=== PATIENT | female | born 1935 | race Hispanic/Latino ===

== ENCOUNTER 2018-11-29 02:02 | Inpatient (IN) | payer MEDICARE ==
--- NOTE | 2018-11-29 03:00 | Emergency Department Report ---
ED General Adult HPI - General Chief complaint: Dyspnea/Respdistress Stated complaint: SEPSIS Time Seen by Provider: 11/29/18 02:55 Source: patient, EMS Mode of arrival: Stretcher Limitations: Physical Limitation - History of Present Illness Initial comments: 83-year-old female with a history of hypertension, gout, CVA, and hypercholesterolemia presents with the complaint of shortness of breath. Family also states that patient was talking off of the wall. Family states the patient was taking all of her oxygen off and put in by was outside the home. And states the patient had felt clammy. Family states the patient does have a history of dementia as well. Patient was recently discharged from outside hospital. The family. Patient also related to the fentanyl she had a complaint of chest pain. Patient currently has been compliant with her L Oquist therapy. Upon EMS arrival patient had a oxygen saturation 85% on room air. Family states the patient on her 3 L oxygen was 81% at home. Patient has had no fever at home. - Related Data Home Medications Medication Instructions Recorded Confirmed Last Taken Allopurinol 300 mg PO QAM 04/03/18 04/05/18 04/03/18 08:00 Aspirin 81 mg PO QAM 04/03/18 04/05/18 Unknown Clopidogrel 75 mg PO QPM 04/03/18 04/05/18 04/03/18 08:00 Metoprolol Tartrate 25 mg PO BID 04/03/18 04/05/18 Unknown Multivitamin 1 tab PO QDAY 04/03/18 04/05/18 04/03/18 08:00 Lantus 38 units SUB-Q BID 04/05/18 04/05/18 Unknown Levothyroxine [Synthroid] 75 mg PO QAM 04/05/18 04/05/18 Unknown Polyethylene Glycol 3350 [Clearlax] 17 gm PO PRN 04/05/18 04/05/18 Unknown Previous Rx's Medication Instructions Recorded Last Taken Type Aspirin EC 81 mg PO QDAY #30 tablet. 04/09/18 Unknown Rx AtorvaSTATin [Lipitor] 40 mg PO QHS #30 tablet 04/09/18 Unknown Rx Losartan Potassium 100 mg PO QPM #30 04/09/18 Unknown Rx amLODIPine [Norvasc] 10 mg PO QDAY #30 tablet 04/09/18 Unknown Rx Allergies Allergy/AdvReac Type Severity Reaction Status Date / Time latex Allergy Unknown Verified 03/06/16 08:01 chlorine Allergy Unknown Uncoded 03/06/16 08:01 ED Review of Systems ROS: Stated complaint: SEPSIS Other details as noted in HPI Constitutional: denies: chills, fever Eyes: denies: eye pain, eye discharge, vision change ENT: denies: ear pain, throat pain Respiratory: shortness of breath Cardiovascular: denies: chest pain, palpitations Endocrine: no symptoms reported Gastrointestinal: denies: abdominal pain, nausea, diarrhea Genitourinary: denies: urgency, dysuria, discharge Musculoskeletal: denies: back pain, joint swelling, arthralgia Skin: denies: rash, lesions Neurological: denies: headache, weakness, paresthesias Psychiatric: denies: anxiety, depression Hematological/Lymphatic: denies: easy bleeding, easy bruising ED Past Medical Hx - Past Medical History Hx Hypertension: Yes Hx Heart Attack/AMI: Yes (2001) Hx Congestive Heart Failure: Yes Hx Diabetes: Yes Hx COPD: Yes Additional medical history: Bladder prolapse/uterine prolapse - Surgical History Past Surgical History?: Yes Hx Pacemaker: Yes (Dr. Calero) Additional Surgical History: bladder/uterine mesh - Social History Smoking Status: Unknown if ever smoked - Medications Home Medications: Home Medications Medication Instructions Recorded Confirmed Last Taken Type Allopurinol 300 mg PO QAM 04/03/18 04/05/18 04/03/18 08:00 History Aspirin 81 mg PO QAM 04/03/18 04/05/18 Unknown History Clopidogrel 75 mg PO QPM 04/03/18 04/05/18 04/03/18 08:00 History Metoprolol Tartrate 25 mg PO BID 04/03/18 04/05/18 Unknown History Multivitamin 1 tab PO QDAY 04/03/18 04/05/18 04/03/18 08:00 History Lantus 38 units SUB-Q BID 04/05/18 04/05/18 Unknown History Levothyroxine [Synthroid] 75 mg PO QAM 04/05/18 04/05/18 Unknown History Polyethylene Glycol 3350 [Clearlax] 17 gm PO PRN 04/05/18 04/05/18 Unknown History Aspirin EC 81 mg PO QDAY #30 tablet. 04/09/18 Unknown Rx AtorvaSTATin [Lipitor] 40 mg PO QHS #30 tablet 04/09/18 Unknown Rx Losartan Potassium 100 mg PO QPM #30 04/09/18 Unknown Rx amLODIPine [Norvasc] 10 mg PO QDAY #30 tablet 04/09/18 Unknown Rx ED Physical Exam - General Limitations: Physical Limitation General appearance: alert, other (comfortable;) - Head Head exam: Present: atraumatic, normocephalic - Eye Eye exam: Present: normal appearance - ENT ENT exam: Present: mucous membranes dry - Neck Neck exam: Present: normal inspection - Respiratory Respiratory exam: Present: other (coarse breath sounds bilaterally). Absent: respiratory distress - Cardiovascular Cardiovascular Exam: Present: regular rate, normal rhythm. Absent: systolic murmur, diastolic murmur, rubs, gallop - GI/Abdominal GI/Abdominal exam: Present: soft, normal bowel sounds - Extremities Exam Extremities exam: Present: normal inspection - Back Exam Back exam: Present: normal inspection - Neurological Exam Neurological exam: Present: alert, CN II-XII intact, other (oriented to person and place only). Absent: motor sensory deficit - Psychiatric Psychiatric exam: Present: normal affect, normal mood - Skin Skin exam: Present: warm, dry, intact, normal color. Absent: rash ED Course Vital Signs 11/29/18 11/29/18 11/29/18 02:12 02:26 02:30 Temperature 98.6 F Pulse Rate 90 88 85 Respiratory 29 H 39 H 29 H Rate Blood Pressure 161/77 O2 Sat by Pulse 89 94 93 Oximetry 11/29/18 11/29/18 11/29/18 02:45 03:00 03:15 Temperature Pulse Rate 84 82 82 Respiratory 41 H 27 H 37 H Rate Blood Pressure 151/82 154/75 149/78 O2 Sat by Pulse 91 92 93 Oximetry 11/29/18 11/29/18 11/29/18 03:31 03:45 04:01 Temperature Pulse Rate 81 82 Respiratory 33 H 35 H Rate Blood Pressure 149/78 150/70 150/70 O2 Sat by Pulse 93 93 95 Oximetry 11/29/18 11/29/18 11/29/18 04:29 04:31 04:45 Temperature Pulse Rate 86 86 80 Respiratory 27 H 27 H 32 H Rate Blood Pressure 150/70 147/72 151/73 O2 Sat by Pulse 90 91 92 Oximetry 11/29/18 11/29/18 05:01 05:15 Temperature Pulse Rate 72 72 Respiratory 22 25 H Rate Blood Pressure 124/54 129/64 O2 Sat by Pulse 94 91 Oximetry ED Medical Decision Making - Lab Data Result diagrams: 11/29/18 03:31 11/29/18 03:31 - EKG Data -: EKG Interpreted by Me Rate: normal - EKG Data Interpretation: other (paced rhythm) - Medical Decision Making Patient received additional oxygen via nasal cannula as patient was noted to be hypoxic on her oxygen requirement of 3 L. Patient was also noted to have a urinary tract infection which may have lead to her altered mental status and thus patient was given ceftriaxone therapy while in the emergency department. Patient noted to have bilateral pleural effusion and chest x-ray and with elevated BNP as well patient was given Lasix therapy while in emergency departm ent. Patient to be admitted to the hospitalist service for continued management and treatment. - Differential Diagnosis arrhythmia; STEMI; UTI; electrolyte; anemia; Critical care attestation.: If time is entered above; I have spent that time in minutes in the direct care of this critically ill patient, excluding procedure time. ED Disposition Clinical Impression: Urinary tract infection, NSTEMI (non-ST elevated myocardial infarction), Pleural effusion, Hypoalbuminemia, COPD (chronic obstructive pulmonary disease) Disposition: 09 OP ADMIT IP TO THIS HOSP Is pt being admited?: Yes Condition: Stable Instructions: Chronic Obstructive Pulmonary Disease (ED) Referrals: SHELLIE ZAYAS MD [Referring] - 3-5 Days Time of Disposition: 06:01
[2018-11-29 03:49] LABS: Basophils # (Auto) 0.1 K/mm3 (0.0-0.1); Basophils % (Auto) 0.4 % (0.0-1.8); Eosinophils % (Auto) 0.3 % (0.0-4.3); Hematocrit 44.2 % (30.3-42.9); Hemoglobin 14.6 gm/dl (10.1-14.3); Lymphocytes # (Auto) 1.5 K/mm3 (1.2-5.4); Lymphocytes % (Auto) 9.4 % (13.4-35.0); Mean Corpuscular HGB Conc 33 % (30-34); Mean Corpuscular Volume 97 fl (79-97); Monocytes # (Auto) 0.9 K/mm3 (0.0-0.8); Monocytes % (Auto) 5.7 % (0.0-7.3); Platelet Count 317 K/mm3 (140-440); Red Blood Count 4.58 M/mm3 (3.65-5.03); Red Cell Distribution Width 15.1 % (13.2-15.2)
[2018-11-29 03:58] LABS: Bacteria,Urine 1+ /HPF (Negative); Bilirubin,Urine NEG (Negative); Blood,Urine NEG (Negative); Color,Urine Yellow (Yellow); Mucus,Urine FEW /HPF; Urobilinogen,Urine < 2.0 mg/dL (<2.0)
[2018-11-29 04:03] LABS: WBC,Urine > 182.0 /HPF (0.0-6.0)
[2018-11-29 04:14] LABS: Albumin 3.5 g/dL (3.9-5); Calcium 9.5 mg/dL (8.4-10.2)
--- NOTE | 2018-11-29 04:48 | Cat Scan Report ---
CT HEAD WITHOUT CONTRAST INDICATION : Altered mental status. Headache. History of diabetes. TECHNIQUE: Axial, coronal and sagittal CT imaging was performed from the skull apex through the skul l base without contrast. All CT scans at this location are performed using CT dose reduction for ALA RA by means of automated exposure control. COMPARISON: CT of the head without contrast from 04/04/2018. FINDINGS: PARENCHYMA: No mass, midline shift, hemorrhage, extraaxial collection or acute territorial infarctio n. There is similar generalized atrophy. Multifocal areas of low-attenuation are seen along the periv entricular and deep white matter and likely represent chronic microvascular ischemic changes. VENTRICLES: Prominent secondary to atrophy. No acute abnormality. SOFT TISSUES: Soft tissues including the orbits appear normal. BONES: No acute osseous abnormality. SINUSES: No significant abnormality. ADDITIONAL FINDINGS: None. IMPRESSION: 1. No acute abnormality. 2. Additional stable chronic changes as above. Signer Name: Tawanda López MD Signed: 11/29/2018 4:44 AM Workstation Name: [id number]
[2018-11-29] MEDS ORDERED: ROCEPHIN/NS 1 GM/50 ML 1 GM/50 ML BAG IV ONE (04:59)
[2018-11-29] MEDS ORDERED: LASIX IV ONE (05:29)
--- NOTE | 2018-11-29 05:46 | XRay Report ---
CHEST 1 VIEW 11/29/2018 5:24 AM INDICATION / CLINICAL INFORMATION: shortness of breath. COMPARISON: None available. FINDINGS: SUPPORT DEVICES: Satisfactory positioning of a left pacemaker. HEART / MEDIASTINUM: Normal size with moderate aortic atherosclerosis. LUNGS / PLEURA: There are moderate bilateral pleural effusions with associated atelectasis. No pneumo thorax. ADDITIONAL FINDINGS: No significant additional findings. IMPRESSION: Moderate bilateral pleural effusions. Signer Name: Tawanda López MD Signed: 11/29/2018 5:41 AM Workstation Name: [id number]
[2018-11-29] MEDS ORDERED: D50W (25GM) Syringe IV PRN (06:15)
[2018-11-29] MEDS: TYLENOL PO PRN ×2 (06:25→14:57)
[2018-11-29] MEDS ORDERED: TYLENOL ONE (06:32)
[2018-11-29] MEDS: HumuLIN R SUB-Q SCH ×4 (09:55→21:13)
[2018-11-29] MEDS ORDERED: MULTIVITAMIN PO SCH (10:00)
[2018-11-29] MEDS ORDERED: NON-FORMULARY (Metoprolol Tartrate 25 MG) PO SCH (10:00)
[2018-11-29] MEDS ORDERED: NON-FORMULARY (Aspirin 81 MG) PO SCH (10:00)
[2018-11-29] MEDS ORDERED: NON-FORMULARY (Allopurinol 300 MG) PO SCH (10:00)
[2018-11-29] MEDS: ZYLOPRIM PO SCH (10:04)
[2018-11-29] MEDS: THERAGRAN Tab PO SCH (10:04)
[2018-11-29] MEDS: NITRO-BID 2% TP SCH ×3 (10:04→17:53)
[2018-11-29] MEDS: LOPRESSOR PO SCH ×2 (10:04→21:14)
[2018-11-29] MEDS: HEPARIN SUB-Q SCH ×2 (10:05→21:13)
[2018-11-29] MEDS: NORVASC PO SCH (10:05)
[2018-11-29] MEDS: LASIX IV SCH (10:05)
[2018-11-29] MEDS: HALFPRIN EC PO SCH (10:06)
--- NOTE | 2018-11-29 10:59 | History and Physical Report ---
CHIEF COMPLAINT: Shortness of breath. HISTORY OF PRESENT ILLNESS: The patient is an 83-year-old female who was noted to be having shortness of breath and also the patient was noted to be confused and was noted by family to be taken her oxygen off at home. The patient was also noted to be clammy and denies history of chest pain, denies history of fever or chills. There was no history of nausea and vomiting and the patient was brought to the Emergency Room. PAST MEDICAL HISTORY: Pertinent for hypertension, coronary artery disease status post myocardial infarction, congestive heart failure, diabetes mellitus, COPD, bladder prolapse, uterine prolapse. Also, the patient has past medical history of bladder/uterine mesh surgery. PAST SURGICAL HISTORY: Pertinent for pacemaker placement. FAMILY HISTORY: Noncontributory. SOCIAL HISTORY: The patient does not smoke, does not drink alcohol and does not use illicit drugs. MEDICATIONS: The patient is on allopurinol 300 mg by mouth every morning, aspirin 81 mg by mouth every morning, clopidogrel 75 mg by mouth in the evening, metoprolol tartrate 25 mg by mouth twice daily, multivitamin 1 tablet by mouth daily, Lantus insulin 38 units subcu b.i.d., levothyroxine or Synthroid 75 mg by mouth every morning, ClearLax 17 g p.o. p.r.n., aspirin enteric coated 81 mg by mouth daily, Lipitor 40 mg by mouth at bedtime, losartan potassium 100 mg by mouth in the evening and amlodipine 10 mg by mouth daily. ALLERGIES: The patient is ALLERGIC TO LATEX AND CHLORINE. REVIEW OF SYSTEMS: CONSTITUTIONAL: There is no fever, no chills, no diaphoresis. HEENT: There is no headache or sore throat. CARDIOVASCULAR SYSTEM: There is no chest pain or orthopnea. RESPIRATORY SYSTEM: Shortness of breath is present and there is no history of cough. GASTROINTESTINAL SYSTEM: There is no nausea, no vomiting. No abdominal pain, diarrhea or constipation. NEUROLOGICAL SYSTEM: Altered mental status present. No dizziness, no numbness. MUSCULOSKELETAL SYSTEM: There is no joint pain. There is swelling in the legs. DERMATOLOGIC SYSTEM: There is no skin rash or itching. GENITOURINARY SYSTEM: There is no dysuria or hematuria or flank pain. Rest of system review is normal. PHYSICAL EXAMINATION: GENERAL: At the time of exam, the patient was found to be alert, oriented x 3, and not in acute distress. VITAL SIGNS: Showed temperature of 98.6 degrees Fahrenheit, pulse of 90, respiration 29, blood pressure 161/77, O2 sat initially of 89% on room air that went up to 93%-95% on oxygen. HEENT: Showed pupils be equal, round, reactive to light and accommodation. Extraocular muscles are intact. NECK: Supple with no JVD or carotid bruit. CARDIOVASCULAR SYSTEM: Showed normal first and second heart sounds with no gallops or murmurs. RESPIRATORY SYSTEM: Showed reduced air entry on both sides of the lungs with no abnormal breath sounds. GASTROINTESTINAL SYSTEM: Showed abdomen to be full, soft, nontender with no organomegaly or rigidity. NEUROLOGICAL: Showed no focal deficit. MUSCULOSKELETAL SYSTEM: Showed swelling in the left leg. DERMATOLOGICAL SYSTEM: Showed no skin rash. GENITOURINARY SYSTEM: Showing no costovertebral angle tenderness. PERTINENT LABORATORY AND IMAGING STUDIES: The patient had chest x-ray done that shows moderate bilateral pleural effusion. The patient also has CT of the head done without contrast that shows no acute abnormality. The patient's CBC shows elevated white count of 16,100 with elevated hemoglobin of 14.6 and elevated hematocrit level of 44.7 with CBC differential showing elevated segmented neutrophil count of 84.2%. The patient's chemistry showed elevated BUN of 30 with normal creatinine and normal estimated GFR. The patient's lactic acid level was normal. Rest of chemistry showed elevated AST of 51 with normal ALT. The patient's troponin level was high with a value of 0.099. The patient's brain natriuretic peptide level is high with a value of 11,678 and albumin level was low with a value of 3.5. The patient's urinalysis show moderate increase in urine leukocyte esterase with high urine wbc's of greater than 182 and high urine rbc's of 33 with 1+ bacteria. DIAGNOSES: 1. Congestive heart failure. 2. Urinary tract infection. 3. Elevated troponin level. 4. Dyspnea. PLAN OF CARE: 1. The patient will be admitted to telemetry. 2. The patient will have serial cardiac enzymes involving troponin, total CK and CK-MB check q. 6 hours x 2 more levels. 3. The patient will have Cardiology consult with Dr. Que Cervantes for management of CHF with elevated troponin level. 4. The patient will have 2D echo done this morning. 5. The patient will be on nitro paste half inch to anterior chest wall q.i.d. and Nitrostat 0.4 mg every 5 minutes as needed for breakthrough chest pain. 6. The patient will be on heparin 5000 units subcutaneous q. 12 hours for DVT prophylaxis. 7. The patient will be on IV ceftriaxone 1 gram daily for treatment of UTI. 8. The patient will be on p.r.n. medications like Tylenol 650 mg by mouth every 4 hours for fever and headache and IV Zofran 4 mg every 8 hours as needed for nausea and vomiting. 9. The patient will be on home medication as shown in the medication reconciliation section. 10. The patient will be on Accu-Chek a.c. and at bedtime followed by low-dose sliding scale using regular insulin. 11. The patient's diet will be consistent with carbohydrate 2 g sodium diet. [facility]# [id number] OCN/NTS
--- NOTE | 2018-11-29 11:23 | Consultation ---
History of Present Illness Consult date: 11/29/18 Consult reason: congestive heart failure, elevated troponin History of present illness: The patient is an 83-year-old woman with multiple medical problems. She has coronary artery disease, with remote coronary stents, determined patent R neck cardiac catheterization in 2009. She has a dual chamber pacemaker in situ. She appears to have significant dementia. 8 months ago, she was hospitalized here with a suspected stroke, that time an echocardiogram demonstrated well-preserved left ventricular systolic function, ejection fraction 50-55%. There was moderate mitral stenosis and moderate mitral regurgitation. She was presumably recommended for conservative cardiac management. She presents to the hospital at this time with complaints of shortness of breath. EKG is ventricular paced rhythm. Chest x-ray shows bilateral pleural effusions, right greater than left. The right effusion comprises almost half of the right lung field. Otherwise, there is mild increase in the size of the cardiac silhouette, and minimal interstitial edema. Past History Past Medical History: CAD, other (mitral valvular heart disease) Past Surgical History: Other (pacemaker) Medications and Allergies Allergies Allergy/AdvReac Type Severity Reaction Status Date / Time latex Allergy Unknown Verified 03/06/16 08:01 chlorine Allergy Unknown Uncoded 03/06/16 08:01 Home Medications Medication Instructions Recorded Confirmed Last Taken Type Allopurinol 300 mg PO QAM 04/03/18 04/05/18 04/03/18 08:00 History Aspirin 81 mg PO QAM 04/03/18 04/05/18 Unknown History Clopidogrel 75 mg PO QPM 04/03/18 04/05/18 04/03/18 08:00 History Metoprolol Tartrate 25 mg PO BID 04/03/18 04/05/18 Unknown History Multivitamin 1 tab PO QDAY 04/03/18 04/05/18 04/03/18 08:00 History Lantus 38 units SUB-Q BID 04/05/18 04/05/18 Unknown History Levothyroxine [Synthroid] 75 mg PO QAM 04/05/18 04/05/18 Unknown History Polyethylene Glycol 3350 [Clearlax] 17 gm PO PRN 04/05/18 04/05/18 Unknown History Aspirin EC 81 mg PO QDAY #30 tablet. 04/09/18 Unknown Rx AtorvaSTATin [Lipitor] 40 mg PO QHS #30 tablet 04/09/18 Unknown Rx Losartan Potassium 100 mg PO QPM #30 04/09/18 Unknown Rx amLODIPine [Norvasc] 10 mg PO QDAY #30 tablet 04/09/18 Unknown Rx Active Meds: Active Medications Acetaminophen (Tylenol) 650 mg PO Q4H PRN PRN Reason: Fever >101 Last Admin: 11/29/18 06:25 Dose: 650 mg Documented by: Allopurinol (Zyloprim) 300 mg PO QDAY [facility] Last Admin: 11/29/18 10:04 Dose: 300 mg Documented by: Amlodipine Besylate (Norvasc) 10 mg PO QDAY [facility] Last Admin: 11/29/18 10:05 Dose: 10 mg Documented by: Aspirin (Halfprin Ec) 81 mg PO QDAY [facility] Last Admin: 11/29/18 10:06 Dose: 81 mg Documented by: Atorvastatin Calcium (Lipitor) 40 mg PO QHS DEEPTI Clopidogrel Bisulfate (Plavix) 75 mg PO QPM [facility] Dextrose (D50w (25gm) Syringe) 50 ml IV PRN PRN PRN Reason: Hypoglycemia Furosemide (Lasix) 40 mg IV QDAY [facility] Last Admin: 11/29/18 10:05 Dose: 40 mg Documented by: Heparin Sodium (Porcine) (Heparin) 5,000 unit SUB-Q Q12HR [facility] Last Admin: 11/29/18 10:05 Dose: 5,000 unit Documented by: Ceftriaxone Sodium (Rocephin/Ns 1 Gm/50 Ml) 1 gm in 50 mls @ 100 mls/hr IV Q24H [facility]; Protocol Insulin Human Regular (Humulin R) 0 units SUB-Q QHS [facility]; Protocol Insulin Human Regular (Humulin R) 0 units SUB-Q AC [facility]; Protocol Last Admin: 11/29/18 09:55 Dose: Not Given Documented by: Levothyroxine Sodium (Synthroid) 75 mcg PO QAM@0600 [facility] Losartan Potassium (Cozaar) 100 mg PO QPM [facility] Metoprolol Tartrate (Lopressor) 25 mg PO BID [facility] Last Admin: 11/29/18 10:04 Dose: 25 mg Documented by: Multivitamins (Theragran Tab) 1 each PO DAILY [facility] Last Admin: 11/29/18 10:04 Dose: 1 each Documented by: Nitroglycerin (Nitro-Bid 2%) 0.5 inch TP QIDNTG [facility]; Protocol Last Admin: 11/29/18 10:04 Dose: 0.5 inch Documented by: Ondansetron HCl (Zofran) 4 mg IV Q8H PRN PRN Reason: Nausea And Vomiting Polyethylene Glycol (Miralax 3350) 17 gm PO DAILY PRN PRN Reason: Constipation Review of Systems Cardiovascular: shortness of breath, no chest pain, no orthopnea, no palpit ations, no rapid/irregular heart beat, no edema, no syncope, no lightheadedness Physical Examination Vital Signs Temp Pulse Resp Pulse Ox 98.6 F 90 29 H 89 11/29/18 02:12 11/29/18 02:12 11/29/18 02:12 11/29/18 02:12 General appearance: no acute distress HEENT: Positive: PERRL Neck: Positive: neck supple Cardiac: Positive: Reg Rate and Rhythm Lungs: Positive: Decreased Breath Sounds Neuro: Positive: Grossly Intact Abdomen: Positive: Soft Female genitourinary: deferred Skin: Positive: Clear Extremities: Absent: edema Results 11/29/18 03:31 11/29/18 03:31 Cardiac Enzymes 11/29/18 Range/Units 03:31 AST 51 H (5-40) units/L CBC 11/29/18 Range/Units 03:31 WBC 16.1 H (4.5-11.0) K/mm3 RBC 4.58 (3.65-5.03) M/mm3 Hgb 14.6 H (10.1-14.3) gm/dl Hct 44.2 H (30.3-42.9) % Plt Count 317 (140-440) K/mm3 Lymph # 1.5 (1.2-5.4) K/mm3 [place] # 0.9 H (0.0-0.8) K/mm3 Eos # 0.0 (0.0-0.4) K/mm3 Baso # 0.1 (0.0-0.1) K/mm3 Comprehensive Metabolic Panel 11/29/18 Range/Units 03:31 Sodium 142 (137-145) mmol/L Potassium 4.8 (3.6-5.0) mmol/L Chloride 100.7 (98-107) mmol/L Carbon Dioxide 28 (22-30) mmol/L BUN 30 H (7-17) mg/dL Creatinine 0.9 (0.7-1.2) mg/dL Glucose 147 H (65-100) mg/dL Calcium 9.5 (8.4-10.2) mg/dL AST 51 H (5-40) units/L ALT 42 (7-56) units/L Alkaline Phosphatase 89 (35-129) units/L Total Protein 6.9 (6.3-8.2) g/dL Albumin 3.5 L (3.9-5) g/dL EKG interpretations - Telemetry EKG Rhythm: Paced Assessment and Plan - Patient Problems (1) Pleural effusion Current Visit: Yes Status: Acute Plan to address problem: Patient presents with shortness of breath, evidence of mild fluid overload, but more significant bilateral pleural effusion with a moderate to large effusion on the right. In addition to diuretic therapy, recommend pulmonary consultation and evaluation of pulmonary effusion.
[2018-11-29 13:06] LABS: Creatine Kinase MB 3.6 ng/mL (0.0-4.0)
--- NOTE | 2018-11-29 13:32 | Event Note ---
Date: 11/29/18 patient admitted earlier this morning continue management as outlined in H/P.
[2018-11-29] MEDS: HALDOL IM PRN (15:56)
[2018-11-29] MEDS ORDERED: NON-FORMULARY (Clopidogrel 75 MG) PO SCH (18:00)
[2018-11-29] MEDS ORDERED: COZAAR PO SCH (18:00)
[2018-11-29] MEDS ORDERED: PLAVIX PO SCH (18:00)
[2018-11-29] MEDS ORDERED: NON-FORMULARY (Losartan Potassium 100 MG) PO SCH (18:00)
[2018-11-29] MEDS: SYNTHROID PO SCH (18:17)
[2018-11-29 19:22] LABS: Creatine Kinase MB 3.6 ng/mL (0.0-4.0)
[2018-11-29 19:42] LABS: Chol/HDL Ratio 2.35 %
[2018-11-29] MEDS: PLAVIX PO SCH (21:12)
[2018-11-29] MEDS: COZAAR PO SCH (21:13)
[2018-11-30] MEDS: HALDOL IM PRN ×2 (03:12→18:16)
[2018-11-30] MEDS: ROCEPHIN/NS 1 GM/50 ML 1 GM/50 ML BAG IV SCH (05:15)
[2018-11-30] MEDS: SYNTHROID PO SCH (05:15)
[2018-11-30] MEDS: NITRO-BID 2% TP SCH ×4 (05:16→17:15)
[2018-11-30] MEDS: THERAGRAN Tab PO SCH (09:02)
[2018-11-30] MEDS: HALFPRIN EC PO SCH (09:02)
[2018-11-30] MEDS: ZYLOPRIM PO SCH (09:02)
[2018-11-30] MEDS: NORVASC PO SCH (09:03)
[2018-11-30] MEDS: LOPRESSOR PO SCH ×2 (09:04→21:04)
[2018-11-30] MEDS: HumuLIN R SUB-Q SCH ×4 (09:04→21:04)
[2018-11-30] MEDS: HEPARIN SUB-Q SCH ×2 (09:04→21:04)
[2018-11-30] MEDS: LASIX IV SCH ×2 (09:05→17:15)
--- NOTE | 2018-11-30 15:06 | Progress Note ---
Assessment and Plan - Patient Problems (1) Pleural effusion Current Visit: Yes Status: Acute Plan to address problem: Bilateral pleural effusion may be likely due to heart failure, but I have recommended pulmonary consultation and follow-up for a possible localized pulmonary etiology. (2) Congestive heart failure Current Visit: Yes Status: Acute Plan to address problem: An echocardiogram done during this admission shows a calcified mitral valve with at least moderate mitral stenosis, mean transmitral gradient of 10. In addition, there was severe mitral regurgitation. Left ventricle systolic function well-preserved, ejection fraction 50-55%. There was moderate pulmonary hypertension with a pulmonary artery systolic pressure of 44. It is likely that the patient's recurrent congestive heart failure is secondary to her mixed mitral valve disease, combination mitral stenosis and regurgitation. Recommendation: 1. Aggressive medical therapy with diuretics, afterload agents, spironolactone and blood pressure management as indicated. 2. Pulmonary consultation for evaluation and management of bilateral pleural effusion which is worse on the right. 3. When heart failure is optimally resolved, and pleural effusion is resolved, a right and left heart catheterization for further evaluation of valvular disease and any concomitant coronary disease. 4. Ultimately, the patient will benefit from mitral valve replacement, but surgical management may be contraindicated by the patient's advanced age, overall poor clinical status and dementia. (3) Mitral valve disease, rheumatic Current Visit: Yes Status: Acute Plan to address problem: An echocardiogram done during this admission shows a heavily calcified mitral valve with at least moderate mitral stenosis, mean transmitral gradient of 10. In addition, there was severe mitral regurgitation. Left ventricle systolic function well-preserved, ejection fraction 50-55%. There was moderate pulmonary hypertension with a pulmonary artery systolic pressure of 44. It is likely that the patient's recurrent congestive heart failure is secondary to her mixed mitral valve disease, combination mitral stenosis and regurgitation. Recommendation: 1. Aggressive medical therapy with diuretics, afterload agents, spironolactone and blood pressure management as indicated. 2. Pulmonary consultation for evaluation and management of bilateral pleural effusion which is worse on the right. 3. When heart failure is optimally resolved, and pleural effusion is resolved, a right and left heart catheterization for further evaluation of valvular disease and any concomitant coronary disease. 4. Ultimately, the patient will benefit from mitral valve replacement, but surgical management may be contraindicated by the patient's advanced age, overall poor clinical status and dementia. Subjective Date of service: 11/30/18 Interval history: The patient appears intermittently confused, and a family member mentions that she may have a diagnosis of dementia. An echocardiogram done during this admission shows a calcified mitral valve with at least moderate mitral stenosis, mean transmitral gradient of 10. In addition, there was severe mitral regurgitation. Left ventricle systolic function well-preserved, ejection fraction 50-55%. There was moderate pulmonary hypertension with a pulmonary artery systolic pressure of 44. Objective Vital Signs Temp Pulse Resp BP Pulse Ox 11/30/18 13:01 81 138/59 11/30/18 12:49 98.6 F 81 16 138/59 93 11/30/18 09:04 74 136/60 11/30/18 09:03 74 136/60 11/30/18 07:48 97.7 F 74 16 136/60 100 11/30/18 04:09 98.0 F 68 20 119/49 93 11/29/18 23:49 98.0 F 63 18 114/45 93 11/29/18 19:26 98.0 F 72 18 110/52 94 11/29/18 18:51 66 84/32 90 11/29/18 15:57 15 - Physical Examination General: No Apparent Distress, Other (intermittently confused) HEENT: Positive: PERRL Neck: Positive: neck supple Cardiac: Positive: Reg Rate and Rhythm, Systolic Murmur Lungs: Positive: Decreased Breath Sounds Neuro: Positive: Grossly Intact Abdomen: Positive: Soft Skin: Positive: Clear Extremities: Absent: edema - Labs and Meds Cardiac Enzymes 11/29/18 Range/Units 18:01 CK-MB (CK-2) 3.6 (0.0-4.0) ng/mL Lipids 11/29/18 Range/Units 18:01 Triglycerides 107 (2-149) mg/dL Cholesterol 80 (50-199) mg/dL HDL Cholesterol 34 L (40-59) mg/dL Cholesterol/HDL Ratio 2.35 %
--- NOTE | 2018-11-30 16:36 | Progress Note ---
Assessment and Plan Assessment and plan: . 83-year-old woman with history of hypertension, gout, CVA, hypercholesterolemia, chronic respiratory failure on home oxygen who presented to the hospital with shortness of breath. 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, this is likely a large contributing factor to her CHF., Patient will likely benefit from cardiac have when heart failure symptoms ultimately resolved The patient's may ultimately benefit from mitral valve replacement, however surgical management may be contraindicated given patient's advanced age and overall poor clinical status and dementia, cardiology input appreciated Acute on chronic hypoxic respiratory failure Continue oxygen supplement DVT prophylaxis with Lovenox History Interval history: nurses note that she is intermittently hypoxic Review of systems Constitutional: No fevers, no malaise, no joint pains CVS: No chest pain, continues to complain of orthopnea and shortness of breath on exertion GI: No abdominal pain, no diarrhea, no vomiting, no constipation Respiratory: no wheezing, no coughing Hospitalist Physical - Physical exam Narrative exam: General.: Appears well, no distress, nontoxic HEENT: Moist mucous membranes, extraocular muscles intact, no lymphadenopathy Neck: supple Cardiac: S1-S2 heard Lungs: Diminished in bases Abdomen: soft , nontender, nondistended, bowel sounds positive Extremities: no edema clubbing or cyanosis Skin: no rash or lesions Neurologic: no gross focal deficits Psych: calm, and cooperative, demented - Constitutional Vitals: Temp Pulse Resp BP Pulse Ox 98.6 F 81 16 138/59 93 11/30/18 12:49 11/30/18 13:01 11/30/18 12:49 11/30/18 13:01 11/30/18 12:49 General appearance: Present: no acute distress Results - Labs CBC & Chem 7: 12/01/18 03:47 12/01/18 03:47 Labs: Laboratory Last Values WBC 16.1 K/mm3 (4.5-11.0) H 11/29/18 03:31 RBC 4.58 M/mm3 (3.65-5.03) 11/29/18 03:31 Hgb 14.6 gm/dl (10.1-14.3) H 11/29/18 03:31 Hct 44.2 % (30.3-42.9) H 11/29/18 03:31 MCV 97 fl (79-97) 11/29/18 03:31 MCH 32 pg (28-32) 11/29/18 03:31 MCHC 33 % (30-34) 11/29/18 03:31 RDW 15.1 % (13.2-15.2) 11/29/18 03:31 Plt Count 317 K/mm3 (140-440) 11/29/18 03:31 Lymph % (Auto) 9.4 % (13.4-35.0) L 11/29/18 03:31 [place] % (Auto) 5.7 % (0.0-7.3) 11/29/18 03:31 Eos % (Auto) 0.3 % (0.0-4.3) 11/29/18 03:31 Baso % (Auto) 0.4 % (0.0-1.8) 11/29/18 03:31 Lymph # 1.5 K/mm3 (1.2-5.4) 11/29/18 03:31 [place] # 0.9 K/mm3 (0.0-0.8) H 11/29/18 03:31 Eos # 0.0 K/mm3 (0.0-0.4) 11/29/18 03:31 Baso # 0.1 K/mm3 (0.0-0.1) 11/29/18 03:31 Seg Neutrophils % 84.2 % (40.0-70.0) H 11/29/18 03:31 Seg Neutrophils # 13.6 K/mm3 (1.8-7.7) H 11/29/18 03:31 Sodium 142 mmol/L (137-145) 11/29/18 03:31 Potassium 4.8 mmol/L (3.6-5.0) 11/29/18 03:31 Chloride 100.7 mmol/L (98-107) 11/29/18 03:31 Carbon Dioxide 28 mmol/L (22-30) 11/29/18 03:31 18 mmol/L 11/29/18 03:31 BUN 30 mg/dL (7-17) H 11/29/18 03:31 0.9 mg/dL (0.7-1.2) 11/29/18 03:31 Estimated GFR 60 ml/min 11/29/18 03:31 33 % 11/29/18 03:31 Glucose 147 mg/dL (65-100) H 11/29/18 03:31 POC Glucose 221 (70-105) H 11/30/18 11:44 Lactic Acid 1.10 mmol/L (0.7-2.0) 11/29/18 05:21 Calcium 9.5 mg/dL (8.4-10.2) 11/29/18 03:31 0.80 mg/dL (0.1-1.2) 11/29/18 03:31 AST 51 units/L (5-40) H 11/29/18 03:31 ALT 42 units/L (7-56) 11/29/18 03:31 89 units/L (35-129) 11/29/18 03:31 54 units/L (30-135) 11/29/18 18:01 CK-MB (CK-2) 3.6 ng/mL (0.0-4.0) 11/29/18 18:01 CK-MB (CK-2) Rel Index 6.6 (0-4) H 11/29/18 18:01 0.086 ng/mL (0.00-0.029) H 11/29/18 18:01 NT-Pro-B Natriuret Pep 38403 pg/mL (0-900) H 11/29/18 03:31 6.9 g/dL (6.3-8.2) 11/29/18 03:31 3.5 g/dL (3.9-5) L 11/29/18 03:31 1.0 % 11/29/18 03:31 Triglycerides 107 mg/dL (2-149) 11/29/18 18:01 Cholesterol 80 mg/dL (50-199) 11/29/18 18:01 33 mg/dL (50-130) L 11/29/18 18:01 34 mg/dL (40-59) L 11/29/18 18:01 2.35 % 11/29/18 18:01 Yellow (Yellow) 11/29/18 02:35 Turbid (Clear) 11/29/18 02:35 5.0 (5.0-7.0) 11/29/18 02:35 Ur Specific [place] 1.018 (1.003-1.030) 11/29/18 02:35 30 mg/dl mg/dL (Negative) 11/29/18 02:35 Neg mg/dL (Negative) 11/29/18 02:35 Neg mg/dL (Negative) 11/29/18 02:35 Neg (Negative) 11/29/18 02:35 Neg (Negative) 11/29/18 02:35 Neg (Negative) 11/29/18 02:35 < 2.0 mg/dL (<2.0) 11/29/18 02:35 Ur Leukocyte Esterase Mod (Negative) 11/29/18 02:35 > 182.0 /HPF (0.0-6.0) H 11/29/18 02:35 33.0 /HPF (0.0-6.0) 11/29/18 02:35 U Epithel Cells (Auto) 1.0 /HPF (0-13.0) 11/29/18 02:35 1+ /HPF (Negative) 11/29/18 02:35 3+ /HPF 11/29/18 02:35 Few /HPF 11/29/18 02:35 Active Medications - Current Medications Current Medications: Generic Name Dose Route Start Last Admin Trade Name Freq PRN Reason Stop Dose Admin Acetaminophen 650 mg 11/29/18 06:22 11/29/18 14:57 Tylenol PO 650 mg Q4H PRN Administration Fever >101 Allopurinol 300 mg 11/29/18 10:00 11/30/18 09:02 Zyloprim PO 300 mg QDAY DEEPTI Administration Amlodipine Besylate 10 mg 11/29/18 10:00 11/30/18 09:03 Norvasc PO 10 mg QDAY DEEPTI Administration Aspirin 81 mg 11/29/18 10:00 11/30/18 09:02 Halfprin Ec PO 81 mg QDAY DEEPTI Administration Atorvastatin Calcium 40 mg 11/29/18 22:00 11/29/18 21:12 Lipitor PO 40 mg QHS DEEPTI Administration Clopidogrel Bisulfate 75 mg 11/29/18 20:00 11/29/18 21:12 Plavix PO 75 mg 2000 DEEPTI Administration Dextrose 50 ml 11/29/18 06:15 D50w (25gm) Syringe IV PRN PRN Hypoglycemia Furosemide 40 mg 11/29/18 10:00 11/30/18 09:05 Lasix IV 40 mg QDAY DEEPTI Administration Haloperidol Lactate 5 mg 11/29/18 15:29 11/30/18 03:12 Haldol IM 5 mg Q6H PRN Administration Agitation Heparin Sodium (Porcine) 5,000 unit 11/29/18 10:00 11/30/18 09:04 Heparin SUB-Q 5,000 unit Q12HR DEEPTI Administration Ceftriaxone Sodium 1 gm in 50 mls @ 100 mls/hr 11/30/18 06:00 11/30/18 05:15 Rocephin/Ns 1 Gm/50 Ml IV 100 mls/hr Q24H DEEPTI Administration Protocol Insulin Human Regular 0 units 11/29/18 22:00 11/29/18 21:13 Humulin R SUB-Q 2 units QHS [facility] Administration Protocol Insulin Human Regular 0 units 11/29/18 07:30 11/30/18 13:05 Humulin R SUB-Q 2 units AC [facility] Administration Protocol Levothyroxine Sodium 75 mcg 11/29/18 07:00 11/30/18 05:15 Synthroid PO 75 mcg QAM@0600 [facility] Administration Losartan Potassium 100 mg 11/29/18 20:00 11/29/18 21:13 Cozaar PO Not Given 1999 [facility] Metoprolol Tartrate 25 mg 11/29/18 10:00 11/30/18 09:04 Lopressor PO 25 mg BID DEEPTI Administration Multivitamins 1 each 11/29/18 10:00 11/30/18 09:02 Theragran Tab PO 1 each DAILY [facility] Administration Nitroglycerin 0.5 inch 11/29/18 10:00 11/30/18 13:01 Nitro-Bid 2% TP 0.5 inch QIDNTG [facility] Administration Protocol Ondansetron HCl 4 mg 11/29/18 06:22 Zofran IV Q8H PRN Nausea And Vomiting Polyethylene Glycol 17 gm 11/29/18 10:00 Miralax 3350 PO DAILY PRN Constipation
[2018-11-30] MEDS: ZOFRAN IV PRN (20:40)
[2018-11-30] MEDS: PLAVIX PO SCH (20:42)
[2018-11-30] MEDS: COZAAR PO SCH (20:42)
[2018-11-30] MEDS: MIRALAX 3350 PO PRN (21:06)
[2018-12-01 05:03] LABS: Basophils % (Auto) 0.2 % (0.0-1.8); Eosinophils % (Auto) 0.2 % (0.0-4.3); Hematocrit 42.9 % (30.3-42.9); Hemoglobin 14.2 gm/dl (10.1-14.3); Lymphocytes # (Auto) 1.5 K/mm3 (1.2-5.4); Lymphocytes % (Auto) 9.6 % (13.4-35.0); Mean Corpuscular HGB Conc 33 % (30-34); Mean Corpuscular Volume 96 fl (79-97); Monocytes % (Auto) 6.7 % (0.0-7.3); Platelet Count 339 K/mm3 (140-440); Red Blood Count 4.45 M/mm3 (3.65-5.03)
[2018-12-01] MEDS: ROCEPHIN/NS 1 GM/50 ML 1 GM/50 ML BAG IV SCH (05:11)
[2018-12-01] MEDS: NITRO-BID 2% TP SCH ×4 (05:12→19:47)
[2018-12-01] MEDS: LASIX IV SCH ×2 (05:12→17:37)
[2018-12-01] MEDS: SYNTHROID PO SCH (05:12)
[2018-12-01 05:20] LABS: Calcium 8.6 mg/dL (8.4-10.2)
--- NOTE | 2018-12-01 09:19 | XRay Report ---
CHEST 2 VIEWS 0815 INDICATION / CLINICAL INFORMATION: sob. COMPARISON: 11/29/2018 FINDINGS: SUPPORT DEVICES: None. HEART / MEDIASTINUM: Mild cardiomegaly LUNGS / PLEURA: Bilateral pleural effusions are again seen. Bibasilar areas of atelectasis and infilt rate continue. No pneumothorax. ADDITIONAL FINDINGS: No significant additional findings. IMPRESSION: No significant change Signer Name: Que Serra MD Signed: 12/01/2018 9:15 AM Workstation Name: [id number]
[2018-12-01] MEDS: HumuLIN R SUB-Q SCH ×4 (10:05→22:05)
[2018-12-01] MEDS: ZYLOPRIM PO SCH (10:07)
[2018-12-01] MEDS: THERAGRAN Tab PO SCH (10:07)
[2018-12-01] MEDS: HALFPRIN EC PO SCH (10:07)
[2018-12-01] MEDS: HEPARIN SUB-Q SCH ×2 (10:09→22:02)
[2018-12-01] MEDS: LOPRESSOR PO SCH ×3 (10:09→22:02)
[2018-12-01] MEDS: NORVASC PO SCH (10:10)
[2018-12-01] MEDS: MIRALAX 3350 PO PRN (10:18)
--- NOTE | 2018-12-01 12:24 | Progress Note ---
Assessment and Plan Pleural effusion Congestive heart failure Mitral valve disease, rheumatic Bilateral pleural effusion may be likely due to heart failure An echocardiogram done during this admission shows a calcified mitral valve with at least moderate mitral stenosis, mean transmitral gradient of 10. In addition, there was severe mitral regurgitation. Left ventricle systolic function well- preserved, ejection fraction 50-55%. There was moderate pulmonary hypertension with a pulmonary artery systolic pressure of 44. It is likely that the patient's recurrent congestive heart failure is secondary to her mixed mitral valve disease, combination mitral stenosis and regurgitation. Recommendation: 1. Aggressive medical therapy with diuretics, afterload agents, spironolactone and blood pressure management as indicated. 2. Pulmonary consultation for evaluation and management of bilateral pleural effusion which is worse on the right. 3. When heart failure and pleural effusion is resolved, a right and left heart catheterization for further evaluation of valvular disease and any concomitant coronary disease. 4. Ultimately, the patient will benefit from mitral valve replacement, but surgical management may be contraindicated by the patient's advanced age, overall poor clinical status and dementia. Subjective Date of service: 12/01/18 Interval history: Patient reports shortness of breath and congestion. She denies chest pain. Objective Vital Signs Temp Pulse Pulse Resp BP Pulse Ox 12/01/18 11:51 98.0 F 80 16 113/46 93 12/01/18 10:34 82 94/45 12/01/18 10:10 82 94/45 12/01/18 10:09 94/44 12/01/18 10:02 98.0 F 79 18 94/45 93 12/01/18 08:00 97.9 F 75 72 20 91/44 93 12/01/18 05:12 87 156/75 12/01/18 03:22 98.0 F 87 18 156/75 97 11/30/18 23:40 98.0 F 64 20 96/44 96 11/30/18 21:04 83 142/66 11/30/18 21:00 77 11/30/18 20:14 93 11/30/18 20:13 93 11/30/18 19:04 98.0 F 83 18 142/66 83 L 11/30/18 17:15 91 H 164/73 11/30/18 16:43 97.9 F 96 H 20 164/73 91 11/30/18 15:56 91 H 11/30/18 13:01 81 138/59 11/30/18 12:49 98.6 F 81 16 138/59 93 - Physical Examination General: No Apparent Distress, Other (intermittently confused) HEENT: Positive: PERRL Neck: Positive: neck supple Cardiac: Positive: Other (v-paced) Lungs: Positive: Decreased Breath Sounds Neuro: Positive: Grossly Intact Extremities: Absent: edema - Labs and Meds CBC 12/01/18 Range/Units 03:47 WBC 15.3 H (4.5-11.0) K/mm3 RBC 4.45 (3.65-5.03) M/mm3 Hgb 14.2 (10.1-14.3) gm/dl Hct 42.9 (30.3-42.9) % Plt Count 339 (140-440) K/mm3 Lymph # 1.5 (1.2-5.4) K/mm3 [place] # 1.0 H (0.0-0.8) K/mm3 Eos # 0.0 (0.0-0.4) K/mm3 Baso # 0.0 (0.0-0.1) K/mm3 Comprehensive Metabolic Panel 12/01/18 Range/Units 03:47 Sodium 144 (137-145) mmol/L Potassium 3.9 (3.6-5.0) mmol/L Chloride 99.7 (98-107) mmol/L Carbon Dioxide 28 (22-30) mmol/L BUN 27 H (7-17) mg/dL Creatinine 1.0 (0.7-1.2) mg/dL Glucose 190 H (65-100) mg/dL Calcium 8.6 (8.4-10.2) mg/dL
--- NOTE | 2018-12-01 13:27 | Consultation ---
History of Present Illness Consult date: 12/01/18 Reason for consult: dyspnea, pleural effusion, abnormal CXR/CT History of present illness: 12/01 83yo F adm w incr sob found to have mod bilat pl eff cardiomeg known chf on 02 known valvular heart disease followed by cards Past History Past Medical History: CAD, other (mitral valvular heart disease) Past Surgical History: Other (pacemaker) Medications and Allergies Allergies Allergy/AdvReac Type Severity Reaction Status Date / Time latex Allergy Unknown Verified 03/06/16 08:01 chlorine Allergy Unknown Uncoded 03/06/16 08:01 Home Medications Medication Instructions Recorded Confirmed Last Taken Type Allopurinol 300 mg PO QAM 04/03/18 12/01/18 3 Days Ago History ~11/28/18 Aspirin 81 mg PO QAM 04/03/18 12/01/18 3 Days Ago History ~11/28/18 Clopidogrel 75 mg PO QPM 04/03/18 12/01/18 3 Days Ago History ~11/28/18 Metoprolol Tartrate 25 mg PO BID 04/03/18 12/01/18 3 Days Ago History ~11/28/18 Multivitamin 1 tab PO QDAY 04/03/18 12/01/18 3 Days Ago History ~11/28/18 Lantus 38 units SUB-Q BID 04/05/18 12/01/18 3 Days Ago History ~11/28/18 Levothyroxine [Synthroid] 75 mg PO QAM 04/05/18 12/01/18 3 Days Ago History ~11/28/18 Polyethylene Glycol 3350 [Clearlax] 17 gm PO PRN 04/05/18 12/01/18 3 Days Ago History ~11/28/18 Aspirin EC 81 mg PO QDAY #30 tablet. 04/09/18 12/01/18 3 Days Ago Rx ~11/28/18 AtorvaSTATin [Lipitor] 40 mg PO QHS #30 tablet 04/09/18 12/01/18 3 Days Ago Rx ~11/28/18 Losartan Potassium 100 mg PO QPM #30 04/09/18 12/01/18 3 Days Ago Rx ~11/28/18 amLODIPine [Norvasc] 10 mg PO QDAY #30 tablet 04/09/18 12/01/18 3 Days Ago Rx ~11/28/18 Active Meds: Active Medications Acetaminophen (Tylenol) 650 mg PO Q4H PRN PRN Reason: Fever >101 Last Admin: 11/29/18 14:57 Dose: 650 mg Documented by: Allopurinol (Zyloprim) 300 mg PO QDAY [facility] Last Admin: 12/01/18 10:07 Dose: 300 mg Documented by: Amlodipine Besylate (Norvasc) 10 mg PO QDAY [facility] Last Admin: 12/01/18 10:10 Dose: Not Given Documented by: Aspirin (Halfprin Ec) 81 mg PO QDAY [facility] Last Admin: 12/01/18 10:07 Dose: 81 mg Documented by: Atorvastatin Calcium (Lipitor) 40 mg PO QHS [facility] Last Admin: 11/30/18 21:03 Dose: 40 mg Documented by: Clopidogrel Bisulfate (Plavix) 75 mg PO 1999 [facility] Last Admin: 11/30/18 20:42 Dose: 75 mg Documented by: Dextrose (D50w (25gm) Syringe) 50 ml IV PRN PRN PRN Reason: Hypoglycemia Furosemide (Lasix) 40 mg IV 0600,1800 [facility] Last Admin: 12/01/18 05:12 Dose: 40 mg Documented by: Haloperidol Lactate (Haldol) 5 mg IM Q6H PRN PRN Reason: Agitation Last Admin: 11/30/18 18:16 Dose: 5 mg Documented by: Heparin Sodium (Porcine) (Heparin) 5,000 unit SUB-Q Q12HR [facility] Last Admin: 12/01/18 10:09 Dose: 5,000 unit Documented by: Ceftriaxone Sodium (Rocephin/Ns 1 Gm/50 Ml) 1 gm in 50 mls @ 100 mls/hr IV Q24H [facility]; Protocol Last Admin: 12/01/18 05:11 Dose: 100 mls/hr Documented by: Insulin Human Regular (Humulin R) 0 units SUB-Q QHS [facility]; Protocol Last Admin: 11/30/18 21:04 Dose: 2 units Documented by: Insulin Human Regular (Humulin R) 0 units SUB-Q [facility]; Protocol Last Admin: 12/01/18 10:05 Dose: 2 units Documented by: Levothyroxine Sodium (Synthroid) 75 mcg PO QAM@0600 [facility] Last Admin: 12/01/18 05:12 Dose: 75 mcg Documented by: Losartan Potassium (Cozaar) 100 mg PO 1999 [facility] Last Admin: 11/30/18 20:42 Dose: 100 mg Documented by: Metoprolol Tartrate (Lopressor) 25 mg PO BID [facility] Last Admin: 12/01/18 10:34 Dose: 25 mg Documented by: Multivitamins (Theragran Tab) 1 each PO DAILY [facility] Last Admin: 12/01/18 10:07 Dose: 1 each Documented by: Nitroglycerin (Nitro-Bid 2%) 0.5 inch TP QIDNTG [facility]; Protocol Last Admin: 12/01/18 10:09 Dose: Not Given Documented by: Ondansetron HCl (Zofran) 4 mg IV Q8H PRN PRN Reason: Nausea And Vomiting Last Admin: 11/30/18 20:40 Dose: 4 mg Documented by: Polyethylene Glycol (Miralax 3350) 17 gm PO DAILY PRN PRN Reason: Constipation Last Admin: 12/01/18 10:18 Dose: 17 gm Documented by: Review of Systems Constitutional: fatigue Cardiovascular: dyspnea on exertion, decreased exercise tolerance, no edema Respiratory: cough, home oxygen, no hemoptysis, no sleep apnea Gastrointestinal: no abdominal pain, no jaundice Neurological: other (dementia? ) Physical Examination Vital signs: Vital Signs Temp Pulse Resp Pulse Ox 98.6 F 90 29 H 89 11/29/18 02:12 11/29/18 02:12 11/29/18 02:12 11/29/18 02:12 General appearance: alert ENT: oropharynx dry Neck: supple Ascultation: Bilateral: diminished breath sounds (bases 1/2 up ) Percussion: Bilateral: dull (bases) Cardiovascular: irregular rhythm Gastrointestinal: soft Integumentary: normal Extremities: no edema Musculoskeletal: no deformities normal mental status Results - Laboratory Findings CBC and BMP: 12/01/18 03:47 12/01/18 03:47 Abnormal lab findings: Abnormal Labs 11/29/18 11/29/18 11/29/18 02:35 03:31 03:31 WBC 16.1 H Hgb 14.6 H Hct 44.2 H Lymph % (Auto) 9.4 L [place] # 0.9 H Seg Neutrophils % 84.2 H Seg Neutrophils # 13.6 H BUN 30 H Glucose 147 H POC Glucose AST 51 H CK-MB (CK-2) Rel Index Troponin T 0.099 H NT-Pro-B Natriuret Pep 75574 H Albumin 3.5 L LDL Cholesterol Direct HDL Cholesterol Urine WBC (Auto) > 182.0 H 11/29/18 11/29/18 11/29/18 07:48 12:09 12:09 WBC Hgb Hct Lymph % (Auto) [place] # Seg Neutrophils % Seg Neutrophils # BUN Glucose POC Glucose 143 H 117 H AST CK-MB (CK-2) Rel Index 7.3 H Troponin T 0.094 H NT-Pro-B Natriuret Pep Albumin LDL Cholesterol Direct HDL Cholesterol Urine WBC (Auto) 11/29/18 11/29/18 11/29/18 16:47 18:01 21:01 WBC Hgb Hct Lymph % (Auto) [place] # Seg Neutrophils % Seg Neutrophils # BUN Glucose POC Glucose 142 H 226 H AST CK-MB (CK-2) Rel Index 6.6 H Troponin T 0.086 H NT-Pro-B Natriuret Pep Albumin LDL Cholesterol Direct 33 L HDL Cholesterol 34 L Urine WBC (Auto) 11/30/18 11/30/18 11/30/18 03:17 07:56 11:44 WBC Hgb Hct Lymph % (Auto) [place] # Seg Neutrophils % Seg Neutrophils # BUN Glucose POC Glucose 163 H 205 H 221 H AST CK-MB (CK-2) Rel Index Troponin T NT-Pro-B Natriuret Pep Albumin LDL Cholesterol Direct HDL Cholesterol Urine WBC (Auto) 11/30/18 11/30/18 12/01/18 16:47 20:19 03:47 WBC 15.3 H Hgb Hct Lymph % (Auto) 9.6 L [place] # 1.0 H Seg Neutrophils % 83.3 H Seg Neutrophils # 12.8 H BUN Glucose POC Glucose 196 H 218 H AST CK-MB (CK-2) Rel Index Troponin T NT-Pro-B Natriuret Pep Albumin LDL Cholesterol Direct HDL Cholesterol Urine WBC (Auto) 12/01/18 12/01/18 12/01/18 03:47 08:04 11:56 WBC Hgb Hct Lymph % (Auto) [place] # Seg Neutrophils % Seg Neutrophils # BUN 27 H Glucose 190 H POC Glucose 212 H 310 H AST CK-MB (CK-2) Rel Index Troponin T NT-Pro-B Natriuret Pep Albumin LDL Cholesterol Direct HDL Cholesterol Urine WBC (Auto) - Diagnostic Findings Chest x-ray: image reviewed (mod bilat pl eff cardiomeg ) Assessment and Plan 7/22 needs diuresis Could do thora altho on Plavix continue diuresis for now Ultimately might require valve procedure
--- NOTE | 2018-12-01 15:02 | Progress Note ---
Assessment and Plan Assessment and plan: . 83-year-old woman with history of hypertension, gout, CVA, hypercholesterolemia, chronic respiratory failure on home oxygen who presented to the hospital with shortness of breath. 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, this is likely a large contributing factor to her CHF., Patient will likely benefit from cardiac have when heart failure symptoms ultimately resolved The patient's may ultimately benefit from mitral valve replacement, however surgical management may be contraindicated given patient's advanced age and overall poor clinical status and dementia, cardiology input appreciated Acute on chronic hypoxic respiratory failure Continue oxygen supplement Dementia, MH consult, patient is talking non stop in the room despite being hypoxic DVT prophylaxis with Lovenox History Interval history: she is intermittently hypoxic per marketing associate of systems Constitutional: No fevers, no malaise, no joint pains CVS: No chest pain, continues to complain of orthopnea and shortness of breath on exertion GI: No abdominal pain, no diarrhea, no vomiting, no constipation Respiratory: no wheezing, no coughing Hospitalist Physical - Physical exam Narrative exam: General.: Appears well, no distress, nontoxic HEENT: Moist mucous membranes, extraocular muscles intact, no lymphadenopathy Neck: supple Cardiac: S1-S2 heard Lungs: Diminished in bases Abdomen: soft , nontender, nondistended, bowel sounds positive Extremities: no edema clubbing or cyanosis Skin: no rash or lesions Neurologic: no gross focal deficits Psych: calm, and cooperative, demented - Constitutional Vitals: Temp Pulse Resp BP Pulse Ox 98.0 F 80 16 113/46 93 12/01/18 11:51 12/01/18 14:10 12/01/18 11:51 12/01/18 14:10 12/01/18 11:51 General appearance: Present: no acute distress Results - Labs CBC & Chem 7: 12/01/18 03:47 12/01/18 03:47 Labs: Laboratory Last Values WBC 15.3 K/mm3 (4.5-11.0) H 12/01/18 03:47 RBC 4.45 M/mm3 (3.65-5.03) 12/01/18 03:47 Hgb 14.2 gm/dl (10.1-14.3) 12/01/18 03:47 Hct 42.9 % (30.3-42.9) 12/01/18 03:47 MCV 96 fl (79-97) 12/01/18 03:47 MCH 32 pg (28-32) 12/01/18 03:47 MCHC 33 % (30-34) 12/01/18 03:47 RDW 15.0 % (13.2-15.2) 12/01/18 03:47 Plt Count 339 K/mm3 (140-440) 12/01/18 03:47 Lymph % (Auto) 9.6 % (13.4-35.0) L 12/01/18 03:47 Walker % (Auto) 6.7 % (0.0-7.3) 12/01/18 03:47 Eos % (Auto) 0.2 % (0.0-4.3) 12/01/18 03:47 Baso % (Auto) 0.2 % (0.0-1.8) 12/01/18 03:47 Lymph # 1.5 K/mm3 (1.2-5.4) 12/01/18 03:47 Walker # 1.0 K/mm3 (0.0-0.8) H 12/01/18 03:47 Eos # 0.0 K/mm3 (0.0-0.4) 12/01/18 03:47 Baso # 0.0 K/mm3 (0.0-0.1) 12/01/18 03:47 Seg Neutrophils % 83.3 % (40.0-70.0) H 12/01/18 03:47 Seg Neutrophils # 12.8 K/mm3 (1.8-7.7) H 12/01/18 03:47 Sodium 144 mmol/L (137-145) 12/01/18 03:47 Potassium 3.9 mmol/L (3.6-5.0) 12/01/18 03:47 Chloride 99.7 mmol/L (98-107) 12/01/18 03:47 Carbon Dioxide 28 mmol/L (22-30) 12/01/18 03:47 20 mmol/L 12/01/18 03:47 BUN 27 mg/dL (7-17) H 12/01/18 03:47 1.0 mg/dL (0.7-1.2) 12/01/18 03:47 Estimated GFR 53 ml/min 12/01/18 03:47 27 % 12/01/18 03:47 Glucose 190 mg/dL (65-100) H 12/01/18 03:47 POC Glucose 310 (70-105) H 12/01/18 11:56 Lactic Acid 1.10 mmol/L (0.7-2.0) 11/29/18 05:21 Calcium 8.6 mg/dL (8.4-10.2) 12/01/18 03:47 0.80 mg/dL (0.1-1.2) 11/29/18 03:31 AST 51 units/L (5-40) H 11/29/18 03:31 ALT 42 units/L (7-56) 11/29/18 03:31 89 units/L (35-129) 11/29/18 03:31 54 units/L (30-135) 11/29/18 18:01 CK-MB (CK-2) 3.6 ng/mL (0.0-4.0) 11/29/18 18:01 CK-MB (CK-2) Rel Index 6.6 (0-4) H 11/29/18 18:01 0.086 ng/mL (0.00-0.029) H 11/29/18 18:01 NT-Pro-B Natriuret Pep 19356 pg/mL (0-900) H 11/29/18 03:31 6.9 g/dL (6.3-8.2) 11/29/18 03:31 3.5 g/dL (3.9-5) L 11/29/18 03:31 1.0 % 11/29/18 03:31 Triglycerides 107 mg/dL (2-149) 11/29/18 18:01 Cholesterol 80 mg/dL (50-199) 11/29/18 18:01 33 mg/dL (50-130) L 11/29/18 18:01 34 mg/dL (40-59) L 11/29/18 18:01 2.35 % 11/29/18 18:01 Yellow (Yellow) 11/29/18 02:35 Turbid (Clear) 11/29/18 02:35 5.0 (5.0-7.0) 11/29/18 02:35 Ur Specific Patterson 1.018 (1.003-1.030) 11/29/18 02:35 30 mg/dl mg/dL (Negative) 11/29/18 02:35 Neg mg/dL (Negative) 11/29/18 02:35 Neg mg/dL (Negative) 11/29/18 02:35 Neg (Negative) 11/29/18 02:35 Neg (Negative) 11/29/18 02:35 Neg (Negative) 11/29/18 02:35 < 2.0 mg/dL (<2.0) 11/29/18 02:35 Ur Leukocyte Esterase Mod (Negative) 11/29/18 02:35 > 182.0 /HPF (0.0-6.0) H 11/29/18 02:35 33.0 /HPF (0.0-6.0) 11/29/18 02:35 U Epithel Cells (Auto) 1.0 /HPF (0-13.0) 11/29/18 02:35 1+ /HPF (Negative) 11/29/18 02:35 3+ /HPF 11/29/18 02:35 Few /HPF 11/29/18 02:35 Active Medications - Current Medications Current Medications: Generic Name Dose Route Start Last Admin Trade Name Freq PRN Reason Stop Dose Admin Acetaminophen 650 mg 11/29/18 06:22 11/29/18 14:57 Tylenol PO 650 mg Q4H PRN Administration Fever >101 Allopurinol 300 mg 11/29/18 10:00 12/01/18 10:07 Zyloprim PO 300 mg QDAY DEEPTI Administration Amlodipine Besylate 10 mg 11/29/18 10:00 12/01/18 10:10 Norvasc PO Not Given QDAY DEEPTI Aspirin 81 mg 11/29/18 10:00 12/01/18 10:07 Halfprin Ec PO 81 mg QDAY DEEPTI Administration Atorvastatin Calcium 40 mg 11/29/18 22:00 11/30/18 21:03 Lipitor PO 40 mg QHS DEEPTI Administration Clopidogrel Bisulfate 75 mg 11/29/18 20:00 11/30/18 20:42 Plavix PO 75 mg 2000 DEEPTI Administration Dextrose 50 ml 11/29/18 06:15 D50w (25gm) Syringe IV PRN PRN Hypoglycemia Furosemide 40 mg 11/30/18 18:00 12/01/18 05:12 Lasix IV 40 mg 0600,1800 DEEPTI Administration Haloperidol Lactate 5 mg 11/29/18 15:29 11/30/18 18:16 Haldol IM 5 mg Q6H PRN Administration Agitation Heparin Sodium (Porcine) 5,000 unit 11/29/18 10:00 12/01/18 10:09 Heparin SUB-Q 5,000 unit Q12HR DEEPTI Administration Ceftriaxone Sodium 1 gm in 50 mls @ 100 mls/hr 11/30/18 06:00 12/01/18 05:11 Rocephin/Ns 1 Gm/50 Ml IV 100 mls/hr Q24H DEEPTI Administration Protocol Insulin Glargine 10 units 12/01/18 22:00 Lantus SUB-Q QHS DEEPTI Insulin Human Regular 0 units 11/29/18 22:00 11/30/18 21:04 Humulin R SUB-Q 2 units QHS [facility] Administration Protocol Insulin Human Regular 0 units 11/29/18 07:30 12/01/18 14:11 Humulin R SUB-Q 4 units AC [facility] Administration Protocol Levothyroxine Sodium 75 mcg 11/29/18 07:00 12/01/18 05:12 Synthroid PO 75 mcg QAM@0600 [facility] Administration Losartan Potassium 100 mg 11/29/18 20:00 11/30/18 20:42 Cozaar PO 100 mg 2000 [facility] Administration Metoprolol Tartrate 25 mg 11/29/18 10:00 12/01/18 10:34 Lopressor PO 25 mg BID DEEPTI Administration Multivitamins 1 each 11/29/18 10:00 12/01/18 10:07 Theragran Tab PO 1 each DAILY DEEPTI Administration Nitroglycerin 0.5 inch 11/29/18 10:00 12/01/18 14:10 Nitro-Bid 2% TP 0.5 inch QIDNTG [facility] Administration Protocol Ondansetron HCl 4 mg 11/29/18 06:22 11/30/18 20:40 Zofran IV 4 mg Q8H PRN Administration Nausea And Vomiting Polyethylene Glycol 17 gm 11/29/18 10:00 12/01/18 10:18 Miralax 3350 PO 17 gm DAILY PRN Administration Constipation
[2018-12-01] MEDS: LANTUS SUB-Q SCH (22:02)
[2018-12-01] MEDS: COZAAR PO SCH (22:02)
[2018-12-01] MEDS: PLAVIX PO SCH (22:02)
[2018-12-02] MEDS: ROCEPHIN/NS 1 GM/50 ML 1 GM/50 ML BAG IV SCH (05:33)
[2018-12-02] MEDS: LASIX IV SCH ×2 (05:33→18:57)
[2018-12-02] MEDS: NITRO-BID 2% TP SCH ×4 (05:35→18:57)
[2018-12-02] MEDS: SYNTHROID PO SCH (05:35)
[2018-12-02] MEDS: HumuLIN R SUB-Q SCH ×4 (08:29→22:28)
[2018-12-02] MEDS: LOPRESSOR PO SCH ×2 (08:29→22:25)
[2018-12-02] MEDS: THERAGRAN Tab PO SCH (08:29)
[2018-12-02] MEDS: ZYLOPRIM PO SCH (08:29)
[2018-12-02] MEDS: HALFPRIN EC PO SCH (09:42)
[2018-12-02] MEDS: NORVASC PO SCH (09:42)
[2018-12-02] MEDS: HEPARIN SUB-Q SCH ×2 (09:44→22:29)
--- NOTE | 2018-12-02 10:53 | Progress Note ---
Assessment and Plan Pleural effusion Congestive heart failure Mitral valve disease, rheumatic Bilateral pleural effusion may be likely due to heart failure An echocardiogram done during this admission shows a calcified mitral valve with at least moderate mitral stenosis, mean transmitral gradient of 10. In addition, there was severe mitral regurgitation. Left ventricle systolic function well- preserved, ejection fraction 50-55%. There was moderate pulmonary hypertension with a pulmonary artery systolic pressure of 44. Recommendation: Continue medical therapy with diuretics, afterload agents, spironolactone and blood pressure management as indicated. When heart failure and pleural effusion is resolved, a right and left heart catheterization for further evaluation of valvular disease and any concomitant coronary disease. Subjective Date of service: 12/02/18 Interval history: Patient is resting in bed comfortably. Family member is at the bedside. Objective Vital Signs Temp Pulse Pulse Resp BP BP Pulse Ox 12/02/18 10:05 78 97 12/02/18 09:43 78 125/57 12/02/18 09:42 78 125/57 12/02/18 08:24 98.0 F 78 18 125/57 97 12/02/18 05:26 97.8 F 12/02/18 05:25 89 20 133/63 97 12/01/18 23:49 98.0 F 12/01/18 23:48 79 20 105/53 96 12/01/18 22:26 98 12/01/18 20:00 73 20 93 12/01/18 19:47 66 100/39 12/01/18 19:40 97.6 F 75 20 93/48 98 12/01/18 16:29 97.9 F 66 18 100/39 94 12/01/18 15:00 72 12/01/18 14:10 80 113/46 12/01/18 11:51 98.0 F 80 16 113/46 93 - Physical Examination General: No Apparent Distress HEENT: Positive: PERRL Neck: Positive: trachea midline Cardiac: Positive: Other (paced) Lungs: Positive: Decreased Breath Sounds Neuro: Positive: Grossly Intact Extremities: Absent: edema
--- NOTE | 2018-12-02 10:56 | Progress Note ---
Assessment and Plan 12/01 continue diuresis stop Plavix in anticipation of needing thora next few days Monitor. will discuss w cards re: further w/up Subjective Date of service: 12/02/18 Principal diagnosis: pl effusion Interval history: 12/02. Some clinical improvement Appears to be diuressing Objective Vital Signs - 12hr 12/01/18 12/01/18 12/02/18 23:48 23:49 05:25 Temperature 98.0 F Pulse Rate 79 89 Pulse Rate [ Right Radial] Respiratory 20 20 Rate Blood Pressure 105/53 133/63 O2 Sat by Pulse 96 97 Oximetry 12/02/18 12/02/18 12/02/18 05:26 08:24 09:42 Temperature 97.8 F 98.0 F Pulse Rate 78 78 Pulse Rate [ Right Radial] Respiratory 18 Rate Blood Pressure 125/57 125/57 O2 Sat by Pulse 97 Oximetry 12/02/18 12/02/18 09:43 10:05 Temperature Pulse Rate 78 Pulse Rate [ 78 Right Radial] Respiratory Rate Blood Pressure 125/57 O2 Sat by Pulse 97 Oximetry Constitutional: alert Eyes: non-icteric Neck: supple Effort: normal Ascultation: Bilateral: clear (no wheeze ), diminished breath sounds (bases 1/3. up R>L) Percussion: Bilateral: dull (bases) Cardiovascular: irregular rhythm, murmur noted (hi pitched holosys) Gastrointestinal: soft Integumentary: normal Extremities: no edema Neurologic: normal mental status CBC and BMP: 12/01/18 03:47 12/01/18 03:47 Abnormal lab findings: Abnormal Labs 11/29/18 11/29/18 11/29/18 02:35 03:31 03:31 WBC 16.1 H Hgb 14.6 H Hct 44.2 H Lymph % (Auto) 9.4 L [place] # 0.9 H Seg Neutrophils % 84.2 H Seg Neutrophils # 13.6 H BUN 30 H Glucose 147 H POC Glucose AST 51 H CK-MB (CK-2) Rel Index Troponin T 0.099 H NT-Pro-B Natriuret Pep 14101 H Albumin 3.5 L LDL Cholesterol Direct HDL Cholesterol Urine WBC (Auto) > 182.0 H 11/29/18 11/29/18 11/29/18 07:48 12:09 12:09 WBC Hgb Hct Lymph % (Auto) [place] # Seg Neutrophils % Seg Neutrophils # BUN Glucose POC Glucose 143 H 117 H AST CK-MB (CK-2) Rel Index 7.3 H Troponin T 0.094 H NT-Pro-B Natriuret Pep Albumin LDL Cholesterol Direct HDL Cholesterol Urine WBC (Auto) 11/29/18 11/29/18 11/29/18 16:47 18:01 21:01 WBC Hgb Hct Lymph % (Auto) [place] # Seg Neutrophils % Seg Neutrophils # BUN Glucose POC Glucose 142 H 226 H AST CK-MB (CK-2) Rel Index 6.6 H Troponin T 0.086 H NT-Pro-B Natriuret Pep Albumin LDL Cholesterol Direct 33 L HDL Cholesterol 34 L Urine WBC (Auto) 11/30/18 11/30/18 11/30/18 03:17 07:56 11:44 WBC Hgb Hct Lymph % (Auto) [place] # Seg Neutrophils % Seg Neutrophils # BUN Glucose POC Glucose 163 H 205 H 221 H AST CK-MB (CK-2) Rel Index Troponin T NT-Pro-B Natriuret Pep Albumin LDL Cholesterol Direct HDL Cholesterol Urine WBC (Auto) 11/30/18 11/30/18 12/01/18 16:47 20:19 03:47 WBC 15.3 H Hgb Hct Lymph % (Auto) 9.6 L [place] # 1.0 H Seg Neutrophils % 83.3 H Seg Neutrophils # 12.8 H BUN Glucose POC Glucose 196 H 218 H AST CK-MB (CK-2) Rel Index Troponin T NT-Pro-B Natriuret Pep Albumin LDL Cholesterol Direct HDL Cholesterol Urine WBC (Auto) 12/01/18 12/01/18 12/01/18 03:47 08:04 11:56 WBC Hgb Hct Lymph % (Auto) [place] # Seg Neutrophils % Seg Neutrophils # BUN 27 H Glucose 190 H POC Glucose 212 H 310 H AST CK-MB (CK-2) Rel Index Troponin T NT-Pro-B Natriuret Pep Albumin LDL Cholesterol Direct HDL Cholesterol Urine WBC (Auto) 12/01/18 12/01/18 12/02/18 16:32 21:51 07:54 WBC Hgb Hct Lymph % (Auto) [place] # Seg Neutrophils % Seg Neutrophils # BUN Glucose POC Glucose 278 H 158 H 175 H AST CK-MB (CK-2) Rel Index Troponin T NT-Pro-B Natriuret Pep Albumin LDL Cholesterol Direct HDL Cholesterol Urine WBC (Auto) Chest x-ray: image reviewed (bilat pl eff R>L c'nilesh min change )
--- NOTE | 2018-12-02 12:25 | Consultation ---
History of Present Illness - Reason for Consult Consult date: 12/02/18 Reason for consult: Mental Health Evaluation Requesting physician: WILFREDO POZO - Chief Complaint Chief complaint: 'I am okay" - History of Present Psychiatric Illness 83 y.o. white female who presented to the ER for SOB. Psychiatry was consulted to see the patient for behavioral disturbance. Today he patent was calm and sales recruiting coordinator perative during the assessment. She was able to ID her daughter Any who was at the bedside and recall 3/3 numbers within 5 mins. The patient was able to answer all my questions logically. Per collateral information from her daughter Any, she stated that he mother was treated for depression several years ago. 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 She denies any confusion by her mother in the past. The patient confirmed that she was treated for depression in the past and denies being depressed now. She stated that she does not take any antidepressants. She denies SI/HI's and AVH's. She denies erratic sleep and a poor appetite. She denies recreational drug use and alcohol consumption (etoh). Medications and Allergies Allergies Allergy/AdvReac Type Severity Reaction Status Date / Time latex Allergy Unknown Verified 03/06/16 08:01 chlorine Allergy Unknown Uncoded 03/06/16 08:01 Home Medications Medication Instructions Recorded Confirmed Last Taken Type Allopurinol 300 mg PO QAM 04/03/18 12/01/18 3 Days Ago History ~11/28/18 Aspirin 81 mg PO QAM 04/03/18 12/01/18 3 Days Ago History ~11/28/18 Clopidogrel 75 mg PO QPM 04/03/18 12/01/18 3 Days Ago History ~11/28/18 Metoprolol Tartrate 25 mg PO BID 04/03/18 12/01/18 3 Days Ago History ~11/28/18 Multivitamin 1 tab PO QDAY 04/03/18 12/01/18 3 Days Ago History ~11/28/18 Lantus 38 units SUB-Q BID 04/05/18 12/01/18 3 Days Ago History ~11/28/18 Levothyroxine [Synthroid] 75 mg PO QAM 04/05/18 12/01/18 3 Days Ago History ~11/28/18 Polyethylene Glycol 3350 [Clearlax] 17 gm PO PRN 04/05/18 12/01/18 3 Days Ago History ~11/28/18 Aspirin EC 81 mg PO QDAY #30 tablet. 04/09/18 12/01/18 3 Days Ago Rx ~11/28/18 AtorvaSTATin [Lipitor] 40 mg PO QHS #30 tablet 04/09/18 12/01/18 3 Days Ago Rx ~11/28/18 Losartan Potassium 100 mg PO QPM #30 04/09/18 12/01/18 3 Days Ago Rx ~11/28/18 amLODIPine [Norvasc] 10 mg PO QDAY #30 tablet 04/09/18 12/01/18 3 Days Ago Rx ~11/28/18 Active Meds: Active Medications Acetaminophen (Tylenol) 650 mg PO Q4H PRN PRN Reason: Fever >101 Last Admin: 11/29/18 14:57 Dose: 650 mg Documented by: Allopurinol (Zyloprim) 300 mg PO QDAY [facility] Last Admin: 12/02/18 08:29 Dose: Not Given Documented by: Amlodipine Besylate (Norvasc) 10 mg PO QDAY [facility] Last Admin: 12/02/18 09:42 Dose: 10 mg Documented by: Aspirin (Halfprin Ec) 81 mg PO QDAY [facility] Last Admin: 12/02/18 09:42 Dose: 81 mg Documented by: Atorvastatin Calcium (Lipitor) 40 mg PO QHS [facility] Last Admin: 12/01/18 22:02 Dose: 40 mg Documented by: Dextrose (D50w (25gm) Syringe) 50 ml IV PRN PRN PRN Reason: Hypoglycemia Furosemide (Lasix) 40 mg IV 0600,1800 [facility] Last Admin: 12/02/18 05:33 Dose: 40 mg Documented by: Haloperidol Lactate (Haldol) 5 mg IM Q6H PRN PRN Reason: Agitation Last Admin: 11/30/18 18:16 Dose: 5 mg Documented by: Heparin Sodium (Porcine) (Heparin) 5,000 unit SUB-Q Q12HR [facility] Last Admin: 12/02/18 09:44 Dose: 5,000 unit Documented by: Ceftriaxone Sodium (Rocephin/Ns 1 Gm/50 Ml) 1 gm in 50 mls @ 100 mls/hr IV Q24H [facility]; Protocol Last Admin: 12/02/18 05:33 Dose: 100 mls/hr Documented by: Insulin Glargine (Lantus) 10 units SUB-Q QHS [facility] Last Admin: 12/01/18 22:02 Dose: 10 units Documented by: Insulin Human Regular (Humulin R) 0 units SUB-Q QHS [facility]; Protocol Last Admin: 12/01/18 22:05 Dose: 1 units Documented by: Insulin Human Regular (Humulin R) 0 units SUB-Q AC [facility]; Protocol Last Admin: 12/02/18 08:29 Dose: 1 units Documented by: Levothyroxine Sodium (Synthroid) 75 mcg PO QAM@0600 [facility] Last Admin: 12/02/18 05:35 Dose: 75 mcg Documented by: Losartan Potassium (Cozaar) 100 mg PO 2000 [facility] Last Admin: 12/01/18 22:02 Dose: 100 mg Documented by: Metoprolol Tartrate (Lopressor) 25 mg PO BID [facility] Last Admin: 12/02/18 08:29 Dose: Not Given Documented by: Multivitamins (Theragran Tab) 1 each PO DAILY [facility] Last Admin: 12/02/18 08:29 Dose: Not Given Documented by: Nitroglycerin (Nitro-Bid 2%) 0.5 inch TP QIDNTG [facility]; Protocol Last Admin: 12/02/18 09:43 Dose: 0.5 inch Documented by: Ondansetron HCl (Zofran) 4 mg IV Q8H PRN PRN Reason: Nausea And Vomiting Last Admin: 11/30/18 20:40 Dose: 4 mg Documented by: Polyethylene Glycol (Miralax 3350) 17 gm PO DAILY PRN PRN Reason: Constipation Last Admin: 12/01/18 10:18 Dose: 17 gm Documented by: Past psychiatric history - Past Medical History Past Medical History: hypertension, other (Gout) Past Surgical History: Other (Pacemaker) - past Psychiatric treatment and history psychiatric treatment history: hx of depression several years ago. Denies a fam psy hx. - Social History Social history: lives with family Mental Status Exam - Vital signs Last Vital Signs Temp 98.0 F 12/02/18 08:24 Pulse 78 12/02/18 10:05 Resp 18 12/02/18 08:24 BP 125/57 12/02/18 09:43 Pulse Ox 97 12/02/18 10:05 - Exam Narrative exam: MSE: Appearance: calm, cooperative Behavior: regular eye contact Speech: regular rate and tone Mood: "okay" Affect: congruent to mood Thought Process: logical Thought Content: denies SI/HI's and AVH's Motor Activity: sitting up in bed Cognition: A/O x3 Insight: fair Judgment: appropriate Results Result Diagrams: 12/01/18 03:47 12/01/18 03:47 Abnormal lab results 12/01/18 12/01/18 12/01/18 Range/Units 11:56 16:32 21:51 POC Glucose 310 H 278 H 158 H (70-105) 12/02/18 12/02/18 Range/Units 07:54 11:34 POC Glucose 175 H 271 H (70-105) All other labs normal. Assessment and Plan Assessment and plan: Impression: Hx of depression. Today the patient was calm and cooperative during the assessment. The patient mental status has improved. Medical: WBC's elevated in the patient's urine on admission. Recommendation/Plan: 'Psy team will follow up with the patient in [address] Alexandrea Sotelo.
--- NOTE | 2018-12-02 14:00 | Progress Note ---
Assessment and Plan Assessment and plan: . 83-year-old woman with history of hypertension, gout, CVA, hypercholesterolemia, chronic respiratory failure on home oxygen who presented to the hospital with shortness of breath. 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, this is likely a large contributing factor to her CHF., Patient will likely benefit from cardiac have when heart failure symptoms ultimately resolved The patient's may ultimately benefit from mitral valve replacement, however surgical management may be contraindicated given patient's advanced age and overall poor clinical status and dementia, cardiology input appreciated Acute on chronic hypoxic respiratory failure Continue oxygen supplement Dementia, MH consult, patient is talking non stop in the room despite being hypoxic DVT prophylaxis with Lovenox History Interval history: she is intermittently hypoxic per [place] folder of systems Constitutional: No fevers, no malaise, no joint pains CVS: No chest pain, continues to complain of orthopnea and shortness of breath on exertion GI: No abdominal pain, no diarrhea, no vomiting, no constipation Respiratory: no wheezing, no coughing Hospitalist Physical - Physical exam Narrative exam: General.: Appears well, no distress, nontoxic HEENT: Moist mucous membranes, extraocular muscles intact, no lymphadenopathy Neck: supple Cardiac: S1-S2 heard Lungs: Diminished in bases Abdomen: soft , nontender, nondistended, bowel sounds positive Extremities: no edema clubbing or cyanosis Skin: no rash or lesions Neurologic: no gross focal deficits Psych: calm, and cooperative, demented - Constitutional Vitals: Temp Pulse Resp BP Pulse Ox 98.0 F 78 18 112/40 97 12/02/18 08:24 12/02/18 10:05 12/02/18 08:24 12/02/18 11:17 12/02/18 10:05 General appearance: Present: no acute distress Results - Labs CBC & Chem 7: 12/01/18 03:47 12/01/18 03:47 Labs: Laboratory Last Values WBC 15.3 K/mm3 (4.5-11.0) H 12/01/18 03:47 RBC 4.45 M/mm3 (3.65-5.03) 12/01/18 03:47 Hgb 14.2 gm/dl (10.1-14.3) 12/01/18 03:47 Hct 42.9 % (30.3-42.9) 12/01/18 03:47 MCV 96 fl (79-97) 12/01/18 03:47 MCH 32 pg (28-32) 12/01/18 03:47 MCHC 33 % (30-34) 12/01/18 03:47 RDW 15.0 % (13.2-15.2) 12/01/18 03:47 Plt Count 339 K/mm3 (140-440) 12/01/18 03:47 Lymph % (Auto) 9.6 % (13.4-35.0) L 12/01/18 03:47 [place] % (Auto) 6.7 % (0.0-7.3) 12/01/18 03:47 Eos % (Auto) 0.2 % (0.0-4.3) 12/01/18 03:47 Baso % (Auto) 0.2 % (0.0-1.8) 12/01/18 03:47 Lymph # 1.5 K/mm3 (1.2-5.4) 12/01/18 03:47 [place] # 1.0 K/mm3 (0.0-0.8) H 12/01/18 03:47 Eos # 0.0 K/mm3 (0.0-0.4) 12/01/18 03:47 Baso # 0.0 K/mm3 (0.0-0.1) 12/01/18 03:47 Seg Neutrophils % 83.3 % (40.0-70.0) H 12/01/18 03:47 Seg Neutrophils # 12.8 K/mm3 (1.8-7.7) H 12/01/18 03:47 Sodium 144 mmol/L (137-145) 12/01/18 03:47 Potassium 3.9 mmol/L (3.6-5.0) 12/01/18 03:47 Chloride 99.7 mmol/L (98-107) 12/01/18 03:47 Carbon Dioxide 28 mmol/L (22-30) 12/01/18 03:47 20 mmol/L 12/01/18 03:47 BUN 27 mg/dL (7-17) H 12/01/18 03:47 1.0 mg/dL (0.7-1.2) 12/01/18 03:47 Estimated GFR 53 ml/min 12/01/18 03:47 27 % 12/01/18 03:47 Glucose 190 mg/dL (65-100) H 12/01/18 03:47 POC Glucose 271 (70-105) H 12/02/18 11:34 Lactic Acid 1.10 mmol/L (0.7-2.0) 11/29/18 05:21 Calcium 8.6 mg/dL (8.4-10.2) 12/01/18 03:47 0.80 mg/dL (0.1-1.2) 11/29/18 03:31 AST 51 units/L (5-40) H 11/29/18 03:31 ALT 42 units/L (7-56) 11/29/18 03:31 89 units/L (35-129) 11/29/18 03:31 54 units/L (30-135) 11/29/18 18:01 CK-MB (CK-2) 3.6 ng/mL (0.0-4.0) 11/29/18 18:01 CK-MB (CK-2) Rel Index 6.6 (0-4) H 11/29/18 18:01 0.086 ng/mL (0.00-0.029) H 11/29/18 18:01 NT-Pro-B Natriuret Pep 90103 pg/mL (0-900) H 11/29/18 03:31 6.9 g/dL (6.3-8.2) 11/29/18 03:31 3.5 g/dL (3.9-5) L 11/29/18 03:31 1.0 % 11/29/18 03:31 Triglycerides 107 mg/dL (2-149) 11/29/18 18:01 Cholesterol 80 mg/dL (50-199) 11/29/18 18:01 33 mg/dL (50-130) L 11/29/18 18:01 34 mg/dL (40-59) L 11/29/18 18:01 2.35 % 11/29/18 18:01 Yellow (Yellow) 11/29/18 02:35 Turbid (Clear) 11/29/18 02:35 5.0 (5.0-7.0) 11/29/18 02:35 Ur Specific [place] 1.018 (1.003-1.030) 11/29/18 02:35 30 mg/dl mg/dL (Negative) 11/29/18 02:35 Neg mg/dL (Negative) 11/29/18 02:35 Neg mg/dL (Negative) 11/29/18 02:35 Neg (Negative) 11/29/18 02:35 Neg (Negative) 11/29/18 02:35 Neg (Negative) 11/29/18 02:35 < 2.0 mg/dL (<2.0) 11/29/18 02:35 Ur Leukocyte Esterase Mod (Negative) 11/29/18 02:35 > 182.0 /HPF (0.0-6.0) H 11/29/18 02:35 33.0 /HPF (0.0-6.0) 11/29/18 02:35 U Epithel Cells (Auto) 1.0 /HPF (0-13.0) 11/29/18 02:35 1+ /HPF (Negative) 11/29/18 02:35 3+ /HPF 11/29/18 02:35 Few /HPF 11/29/18 02:35 Active Medications - Current Medications Current Medications: Generic Name Dose Route Start Last Admin Trade Name Freq PRN Reason Stop Dose Admin Acetaminophen 650 mg 11/29/18 06:22 11/29/18 14:57 Tylenol PO 650 mg Q4H PRN Administration Fever >101 Allopurinol 300 mg 11/29/18 10:00 12/02/18 08:29 Zyloprim PO Not Given QDAY DEEPTI Amlodipine Besylate 10 mg 11/29/18 10:00 12/02/18 09:42 Norvasc PO 10 mg QDAY DEEPTI Administration Aspirin 81 mg 11/29/18 10:00 12/02/18 09:42 Halfprin Ec PO 81 mg QDAY DEEPTI Administration Atorvastatin Calcium 40 mg 11/29/18 22:00 12/01/18 22:02 Lipitor PO 40 mg QHS DEEPTI Administration Dextrose 50 ml 11/29/18 06:15 D50w (25gm) Syringe IV PRN PRN Hypoglycemia Furosemide 40 mg 11/30/18 18:00 12/02/18 05:33 Lasix IV 40 mg 0600,1800 [facility] Administration Heparin Sodium (Porcine) 5,000 unit 11/29/18 10:00 12/02/18 09:44 Heparin SUB-Q 5,000 unit Q12HR [facility] Administration Ceftriaxone Sodium 1 gm in 50 mls @ 100 mls/hr 11/30/18 06:00 12/02/18 05:33 Rocephin/Ns 1 Gm/50 Ml IV 100 mls/hr Q24H [facility] Administration Protocol Insulin Glargine 10 units 12/01/18 22:00 12/01/18 22:02 Lantus SUB-Q 10 units QHS [facility] Administration Insulin Human Regular 0 units 11/29/18 22:00 12/01/18 22:05 [facility] Protocol Insulin Human Regular 0 units 11/29/18 07:30 12/02/18 12:51 Humulin R SUB-Q 3 units AC [facility] Administration Protocol Levothyroxine Sodium 75 mcg 11/29/18 07:00 12/02/18 05:35 Synthroid PO 75 mcg QAM@0600 [facility] Administration Losartan Potassium 100 mg 11/29/18 20:00 12/01/18 22:02 Cozaar PO 100 mg 2000 [facility] Administration Metoprolol Tartrate 25 mg 11/29/18 10:00 12/02/18 08:29 Lopressor PO Not Given BID [facility] Multivitamins 1 each 11/29/18 10:00 12/02/18 08:29 Theragran Tab PO Not Given DAILY [facility] Nitroglycerin 0.5 inch 11/29/18 10:00 12/02/18 09:43 Nitro-Bid 2% TP 0.5 inch QIDNTG [facility] Administration Protocol Ondansetron HCl 4 mg 11/29/18 06:22 11/30/18 20:40 Zofran IV 4 mg Q8H PRN Administration Nausea And Vomiting Polyethylene Glycol 17 gm 11/29/18 10:00 12/01/18 10:18 Miralax 3350 PO 17 gm DAILY PRN Administration Constipation
--- NOTE | 2018-12-02 18:11 | Ultrasound Report ---
CHEST ULTRASOUND INDICATION: bilat effusion. COMPARISON: Chest x-ray 12/01/2018 FINDINGS: Moderate to large bilateral pleural effusions are present. Right pleural effusion measures 15.4 x 15.7 x 7.4 cm. Left pleural effusion measures 12.8 x 12.2 x 7. 2 cm. Signer Name: Julio Pulido MD Signed: 12/02/2018 6:07 PM Workstation Name: [id number]
[2018-12-02] MEDS: COZAAR PO SCH (22:26)
[2018-12-02] MEDS: MELATONIN PO SCH (22:26)
[2018-12-02] MEDS: LANTUS SUB-Q SCH (22:27)
[2018-12-03] MEDS: LASIX IV SCH ×2 (05:27→20:05)
[2018-12-03] MEDS: SYNTHROID PO SCH (05:27)
[2018-12-03] MEDS: ROCEPHIN/NS 1 GM/50 ML 1 GM/50 ML BAG IV SCH (05:28)
[2018-12-03] MEDS: NITRO-BID 2% TP SCH ×3 (06:57→17:00)
[2018-12-03] MEDS: HumuLIN R SUB-Q SCH ×4 (08:23→22:53)
--- NOTE | 2018-12-03 08:55 | Progress Note ---
<BRNADT CASTANEDA - Last Filed: 12/03/18 10:33> Assessment and Plan Pleural effusion Congestive heart failure Mitral valve disease, rheumatic Bilateral pleural effusion may be likely due to heart failure An echocardiogram done during this admission shows a calcified mitral valve with at least moderate mitral stenosis, mean transmitral gradient of 10. In addition, there was severe mitral regurgitation. Left ventricle systolic function well- preserved, ejection fraction 50-55%. There was moderate pulmonary hypertension with a pulmonary artery systolic pressure of 44. Recommendation: Continue medical therapy with diuretics, afterload agents, spironolactone and blood pressure management as indicated. Pulmonary management of persistent pleural effusion in progress. When heart failure and pleural effusion is resolved, a right and left heart catheterization for further evaluation of valvular disease and any concomitant coronary disease. Subjective Date of service: 12/03/18 Principal diagnosis: pl effusion Interval history: No cardiac events. Objective Vital Signs Temp Pulse Pulse Resp BP Pulse Ox 12/03/18 06:57 65 100/40 12/03/18 04:08 98.3 F 61 18 108/54 93 12/02/18 23:24 97.8 F 66 18 96/46 95 12/02/18 22:26 80 124/53 12/02/18 22:25 80 124/53 12/02/18 20:05 94 12/02/18 19:46 98.6 F 80 20 124/53 94 12/02/18 19:06 83 12/02/18 18:57 85 128/53 12/02/18 18:36 128/53 12/02/18 11:17 112/40 12/02/18 10:05 78 97 12/02/18 10:00 97 12/02/18 09:43 78 125/57 12/02/18 09:42 78 125/57 - Physical Examination General: No Apparent Distress HEENT: Positive: PERRL Neck: Positive: trachea midline Cardiac: Positive: Other (paced) Lungs: Positive: Decreased Breath Sounds Neuro: Positive: Grossly Intact Abdomen: Positive: Soft Extremities: Absent: edema <ERICH MADISON - Last Filed: 12/10/18 11:49> Assessment and Plan I seen and evaluated the patient agrees with this plan. At this time recommend continue maximal medical therapy for treatment of congestive heart failure. Patient currently has bilateral pleural effusions and is unable to lie flat. When the patient's pleural effusions have resolved and patient is able to lie flat, no plan for right and left heart catheterization for further evaluation Objective Vital Signs Temp Pulse Resp BP Pulse Ox 12/10/18 11:38 97.9 F 71 18 141/62 94 12/10/18 10:57 97 12/10/18 10:00 60 12/10/18 07:39 98.1 F 63 18 122/47 95 12/10/18 04:08 97.9 F 60 19 120/48 96 12/10/18 00:00 64 12/09/18 23:48 98.2 F 58 L 20 122/47 97 12/09/18 21:23 78 12/09/18 20:42 96 12/09/18 19:25 97.9 F 42 L 18 145/62 98 12/09/18 17:37 73 141/54 12/09/18 17:00 70 12/09/18 16:19 98.0 F 73 18 98 12/09/18 16:17 98.0 F 74 18 118/56 98 12/09/18 12:56 67 124/46 12/09/18 12:00 60 - Labs and Meds Cardiac Enzymes 12/10/18 Range/Units 04:17 AST 60 H (5-40) units/L CBC 12/10/18 Range/Units 04:17 WBC 10.2 (4.5-11.0) K/mm3 RBC 4.16 (3.65-5.03) M/mm3 Hgb 13.3 (10.1-14.3) gm/dl Hct 39.6 (30.3-42.9) % Plt Count 271 (140-440) K/mm3 Lymph # 1.6 (1.2-5.4) K/mm3 [place] # 0.7 (0.0-0.8) K/mm3 Eos # 0.3 (0.0-0.4) K/mm3 Baso # 0.1 (0.0-0.1) K/mm3 Comprehensive Metabolic Panel 12/10/18 Range/Units 04:17 Sodium 141 (137-145) mmol/L Potassium 3.6 (3.6-5.0) mmol/L Chloride 98.5 (98-107) mmol/L Carbon Dioxide 35 H (22-30) mmol/L BUN 30 H (7-17) mg/dL Creatinine 0.6 L (0.7-1.2) mg/dL Glucose 145 H (65-100) mg/dL Calcium 8.5 (8.4-10.2) mg/dL AST 60 H (5-40) units/L ALT 51 (7-56) units/L Alkaline Phosphatase 76 (35-129) units/L Total Protein 5.6 L (6.3-8.2) g/dL Albumin 2.2 L (3.9-5) g/dL
[2018-12-03] MEDS: ZYLOPRIM PO SCH (10:41)
[2018-12-03] MEDS: THERAGRAN Tab PO SCH (10:41)
[2018-12-03] MEDS: HALFPRIN EC PO SCH (10:41)
[2018-12-03] MEDS: HEPARIN SUB-Q SCH ×2 (10:41→22:48)
[2018-12-03] MEDS: LOPRESSOR PO SCH ×2 (10:42→22:48)
[2018-12-03] MEDS: NORVASC PO SCH (10:43)
--- NOTE | 2018-12-03 11:11 | Progress Note ---
Assessment and Plan 12/01 continue diuresis stop Plavix in anticipation of needing thora next few days Monitor. will discuss w cards re: further w/up 12/03 should get tapped prior to d/c Current recc is to wait 5days off Plavix >Fri continue diuresis for now can tap emergently Subjective Date of service: 12/03/18 Principal diagnosis: pl effusion Interval history: 12/02. Some clinical improvement Appears to be diuressing 12/03 No clinical change resp status stable sob w activity ?not sure re: diuresis Objective Vital Signs - 12hr 12/02/18 12/03/18 12/03/18 23:24 04:08 06:57 Temperature 97.8 F 98.3 F Pulse Rate 66 61 65 Respiratory 18 18 Rate Blood Pressure 96/46 108/54 100/40 O2 Sat by Pulse 95 93 Oximetry 12/03/18 12/03/18 12/03/18 08:52 10:42 10:43 Temperature 98.2 F Pulse Rate 71 71 71 Respiratory 20 Rate Blood Pressure 116/48 116/48 116/48 O2 Sat by Pulse 97 Oximetry Constitutional: alert Eyes: non-icteric ENT: oropharynx dry Neck: supple Effort: normal Ascultation: Bilateral: clear (no wheeze ), diminished breath sounds (absent bs bases ) Percussion: Bilateral: dull (bases) Cardiovascular: irregular rhythm, murmur noted (hi pitched holosys) Gastrointestinal: soft Integumentary: normal Extremities: no edema Neurologic: normal mental status CBC and BMP: 12/01/18 03:47 12/01/18 03:47 Abnormal lab findings: Abnormal Labs 11/29/18 11/29/18 11/29/18 02:35 03:31 03:31 WBC 16.1 H Hgb 14.6 H Hct 44.2 H Lymph % (Auto) 9.4 L [place] # 0.9 H Seg Neutrophils % 84.2 H Seg Neutrophils # 13.6 H BUN 30 H Glucose 147 H POC Glucose AST 51 H CK-MB (CK-2) Rel Index Troponin T 0.099 H NT-Pro-B Natriuret Pep 45743 H Albumin 3.5 L LDL Cholesterol Direct HDL Cholesterol Urine WBC (Auto) > 182.0 H 11/29/18 11/29/18 11/29/18 07:48 12:09 12:09 WBC Hgb Hct Lymph % (Auto) [place] # Seg Neutrophils % Seg Neutrophils # BUN Glucose POC Glucose 143 H 117 H AST CK-MB (CK-2) Rel Index 7.3 H Troponin T 0.094 H NT-Pro-B Natriuret Pep Albumin LDL Cholesterol Direct HDL Cholesterol Urine WBC (Auto) 11/29/18 11/29/18 11/29/18 16:47 18:01 21:01 WBC Hgb Hct Lymph % (Auto) [place] # Seg Neutrophils % Seg Neutrophils # BUN Glucose POC Glucose 142 H 226 H AST CK-MB (CK-2) Rel Index 6.6 H Troponin T 0.086 H NT-Pro-B Natriuret Pep Albumin LDL Cholesterol Direct 33 L HDL Cholesterol 34 L Urine WBC (Auto) 11/30/18 11/30/18 11/30/18 03:17 07:56 11:44 WBC Hgb Hct Lymph % (Auto) [place] # Seg Neutrophils % Seg Neutrophils # BUN Glucose POC Glucose 163 H 205 H 221 H AST CK-MB (CK-2) Rel Index Troponin T NT-Pro-B Natriuret Pep Albumin LDL Cholesterol Direct HDL Cholesterol Urine WBC (Auto) 11/30/18 11/30/18 12/01/18 16:47 20:19 03:47 WBC 15.3 H Hgb Hct Lymph % (Auto) 9.6 L [place] # 1.0 H Seg Neutrophils % 83.3 H Seg Neutrophils # 12.8 H BUN Glucose POC Glucose 196 H 218 H AST CK-MB (CK-2) Rel Index Troponin T NT-Pro-B Natriuret Pep Albumin LDL Cholesterol Direct HDL Cholesterol Urine WBC (Auto) 12/01/18 12/01/18 12/01/18 03:47 08:04 11:56 WBC Hgb Hct Lymph % (Auto) [place] # Seg Neutrophils % Seg Neutrophils # BUN 27 H Glucose 190 H POC Glucose 212 H 310 H AST CK-MB (CK-2) Rel Index Troponin T NT-Pro-B Natriuret Pep Albumin LDL Cholesterol Direct HDL Cholesterol Urine WBC (Auto) 12/01/18 12/01/18 12/02/18 16:32 21:51 07:54 WBC Hgb Hct Lymph % (Auto) [place] # Seg Neutrophils % Seg Neutrophils # BUN Glucose POC Glucose 278 H 158 H 175 H AST CK-MB (CK-2) Rel Index Troponin T NT-Pro-B Natriuret Pep Albumin LDL Cholesterol Direct HDL Cholesterol Urine WBC (Auto) 12/02/18 12/02/18 12/02/18 11:34 16:46 18:41 WBC Hgb Hct Lymph % (Auto) [place] # Seg Neutrophils % Seg Neutrophils # BUN Glucose POC Glucose 271 H 178 H 248 H AST CK-MB (CK-2) Rel Index Troponin T NT-Pro-B Natriuret Pep Albumin LDL Cholesterol Direct HDL Cholesterol Urine WBC (Auto) 12/02/18 12/03/18 20:42 07:33 WBC Hgb Hct Lymph % (Auto) [place] # Seg Neutrophils % Seg Neutrophils # BUN Glucose POC Glucose 212 H 141 H AST CK-MB (CK-2) Rel Index Troponin T NT-Pro-B Natriuret Pep Albumin LDL Cholesterol Direct HDL Cholesterol Urine WBC (Auto) Chest x-ray: image reviewed Additional Studies: 12/03 chest u/s large pleural eff ?liter each side per measurement
--- NOTE | 2018-12-03 14:03 | Progress Note ---
Subjective - Reason for Consult Consult date: 12/03/18 Reason for consult: Psychiatric Follow-up Evaluation - Chief Complaint Chief complaint: "A lot better " Patient is a 83 y.o. white female who presented to the ER for SOB. Psychiatry was consulted to see the patient for behavioral disturbance. Today the patient is calm and cooperative during the assessment. The patient is able to answer all my questions logically. Patient is alert and oriented to person, place, and situation. She reports fair sleep and appetite. She denies SI/HI's, A/VH's , and delusions. No behavioral disturbances reported/noted. Mental Status Exam - Vital signs Last Vital Signs Temp 98.2 F 12/03/18 08:52 Pulse 71 12/03/18 10:43 Resp 20 12/03/18 10:00 BP 116/48 12/03/18 10:43 Pulse Ox 97 12/03/18 10:00 - Exam Narrative exam: Mental Status Exam: Appearance: calm, cooperative Behavior: regular eye contact Speech: regular rate and tone Mood: "a lot better " Affect: congruent to mood Thought Process: logical Thought Content: denies SI/HI's, AVH's, and delusions Motor Activity: sitting up in bed Cognition: A/O x 3 (person, place, situation) Insight: fair Judgment: appropriate Assessment and Plan Impression: Hx of depression. Today the patient is calm and cooperative during the assessment. The patient mental status has improved. She denies SI/HI's, A/VH's, and delusions. Medical: WBC's elevated in the patient's urine on admission. Recommendation/Plan: Psychiatric team will follow up with the patient in 24 hours. Will staff with Dr. Alexandrea Sotelo.
--- NOTE | 2018-12-03 16:13 | Progress Note ---
Assessment and Plan 83-year-old woman with history of hypertension, gout, CVA, hypercholesterolemia, chronic respiratory failure on home oxygen who presented to the hospital with shortness of breath. 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, this is likely a large contributing factor to her CHF., Patient will likely benefit from cardiac have when heart failure symptoms ultimately resolved The patient's may ultimately benefit from mitral valve replacement, however surgical management may be contraindicated given patient's advanced age and overall poor clinical status and dementia, cardiology input appreciated Acute on chronic hypoxic respiratory failure Continue oxygen supplement Dementia, MH consult, patient is talking non stop in the room despite being hypoxic DVT prophylaxis with Lovenox Subjective Date of service: 12/03/18 Principal diagnosis: pl effusion Interval history: 83-year-old woman with history of hypertension, gout, CVA, hypercholesterolemia, chronic respiratory failure on home oxygen who presented to the hospital with shortness of breath. Patient has a history of COPD and CHF. and MV disease Objective - Constitutional Vitals: Vital Signs - 12hr 12/03/18 12/03/18 12/03/18 06:57 08:52 10:00 Temperature 98.2 F Pulse Rate 65 71 Respiratory 20 20 Rate Blood Pressure 100/40 116/48 O2 Sat by Pulse 97 97 Oximetry 12/03/18 12/03/18 12/03/18 10:42 10:43 13:11 Temperature 98.3 F Pulse Rate 71 71 80 Respiratory 18 Rate Blood Pressure 116/48 116/48 121/50 O2 Sat by Pulse 96 Oximetry General appearance: Present: no acute distress, well-nourished - EENT Eyes: PERRL, EOM intact ENT: hearing intact, clear oral mucosa Ears: bilateral: normal - Neck Neck: supple, normal ROM - Respiratory Respiratory effort: normal Respiratory: bilateral: CTA - Breasts Breasts: normal - Cardiovascular Rhythm: regular Heart Sounds: Present: S1 & S2. Absent: gallop, rub Extremities: pulses intact, No edema, normal color, Full ROM - Gastrointestinal General gastrointestinal: Present: soft, non-tender, non-distended, normal bowel sounds - Genitourinary Female genitourinary: normal - Integumentary Integumentary: clear, warm, dry - Musculoskeletal Musculoskeletal: 1, strength equal bilaterally - Neurologic Neurologic: moves all extremities - Psychiatric Psychiatric: memory intact, appropriate mood/affect, intact judgment & insight - Labs CBC & Chem 7: 12/01/18 03:47 12/06/18 11:05 Labs: Abnormal lab results 12/02/18 12/02/18 12/02/18 Range/Units 16:46 18:41 20:42 POC Glucose 178 H 248 H 212 H (70-105) 12/03/18 12/03/18 Range/Units 07:33 12:54 POC Glucose 141 H 228 H (70-105)
[2018-12-03] MEDS: COZAAR PO SCH (21:15)
[2018-12-03] MEDS: LANTUS SUB-Q SCH (22:48)
[2018-12-03] MEDS: MELATONIN PO SCH (22:49)
[2018-12-04] MEDS: ZOFRAN IV PRN (02:47)
[2018-12-04] MEDS: SYNTHROID PO SCH (06:52)
[2018-12-04] MEDS: LASIX IV SCH ×2 (06:52→17:22)
[2018-12-04] MEDS: ROCEPHIN/NS 1 GM/50 ML 1 GM/50 ML BAG IV SCH (06:52)
[2018-12-04] MEDS: NITRO-BID 2% TP SCH ×4 (06:53→17:25)
[2018-12-04] MEDS: HumuLIN R SUB-Q SCH ×4 (08:00→22:55)
[2018-12-04] MEDS: LOPRESSOR PO SCH ×2 (09:29→22:50)
[2018-12-04] MEDS: THERAGRAN Tab PO SCH (09:30)
[2018-12-04] MEDS: HALFPRIN EC PO SCH (09:30)
[2018-12-04] MEDS: NORVASC PO SCH (09:30)
[2018-12-04] MEDS: ZYLOPRIM PO SCH (09:30)
[2018-12-04] MEDS: HEPARIN SUB-Q SCH ×2 (09:31→22:50)
--- NOTE | 2018-12-04 10:27 | Progress Note ---
Assessment and Plan Pleural effusion Congestive heart failure Mitral valve disease, rheumatic Bilateral pleural effusion may be likely due to heart failure An echocardiogram done during this admission shows a calcified mitral valve with at least moderate mitral stenosis, mean transmitral gradient of 10. In addition, there was severe mitral regurgitation. Left ventricle systolic function well- preserved, ejection fraction 50-55%. There was moderate pulmonary hypertension with a pulmonary artery systolic pressure of 44. Recommendation: Continue medical therapy with diuretics, afterload agents, spironolactone and blood pressure management as indicated. Pulmonary management of persistent pleural effusion in progress. Subjective Date of service: 12/04/18 Principal diagnosis: pl effusion Interval history: Patient is resting in bed comfortably. No cardiac events. Objective Vital Signs Temp Pulse Resp BP Pulse Ox 12/04/18 09:30 80 111/46 12/04/18 09:29 80 111/46 12/04/18 07:35 98.0 F 18 111/46 12/04/18 06:53 70 114/51 12/04/18 04:20 74 95 12/03/18 23:43 98.5 F 74 18 120/46 98 12/03/18 22:48 87 132/54 12/03/18 22:00 72 20 97 12/03/18 21:24 97 12/03/18 21:15 88 139/58 12/03/18 20:38 85 98 12/03/18 20:37 99.1 F 88 18 139/58 97 12/03/18 17:00 80 121/50 12/03/18 13:11 98.3 F 80 18 121/50 96 12/03/18 10:43 71 116/48 12/03/18 10:42 71 116/48 - Physical Examination General: No Apparent Distress HEENT: Positive: PERRL Neck: Positive: trachea midline Cardiac: Positive: Other (v-paced) Lungs: Positive: Decreased Breath Sounds Neuro: Positive: Grossly Intact Extremities: Absent: edema
--- NOTE | 2018-12-04 11:09 | Progress Note ---
Assessment and Plan 12/01 continue diuresis stop Plavix in anticipation of needing thora next few days Monitor. will discuss w cards re: further w/up 12/03 should get tapped prior to d/c Current recc is to wait 5days off Plavix >Fri continue diuresis for now can tap emergently 12/04 As above try to sched for am or wkend check labs disc'd w son Subjective Date of service: 12/04/18 Principal diagnosis: pl effusion Interval history: 12/02. Some clinical improvement Appears to be diuressing 12/03 No clinical change resp status stable sob w activity ?not sure re: diuresis 12/04 seems to be diuressing dyspnea sl better sat 90s on 02 Objective Vital Signs - 12hr 12/03/18 12/04/18 12/04/18 23:43 04:20 06:53 Temperature 98.5 F Pulse Rate 74 74 70 Respiratory 18 Rate Blood Pressure 120/46 114/51 O2 Sat by Pulse 98 95 Oximetry 12/04/18 12/04/18 12/04/18 07:35 09:29 09:30 Temperature 98.0 F Pulse Rate 80 80 Respiratory 18 Rate Blood Pressure 111/46 111/46 111/46 O2 Sat by Pulse Oximetry 12/04/18 10:00 Temperature Pulse Rate Respiratory Rate Blood Pressure O2 Sat by Pulse 97 Oximetry Constitutional: alert Eyes: non-icteric ENT: oropharynx dry Neck: supple Effort: normal Ascultation: Bilateral: clear (no wheeze ), diminished breath sounds (absent bs bases ) Percussion: Bilateral: dull (bases) Cardiovascular: irregular rhythm, murmur noted (hi pitched holosys) Gastrointestinal: soft Integumentary: normal Extremities: no edema Neurologic: normal mental status CBC and BMP: 12/01/18 03:47 12/01/18 03:47 Abnormal lab findings: Abnormal Labs 11/29/18 11/29/18 11/29/18 02:35 03:31 03:31 WBC 16.1 H Hgb 14.6 H Hct 44.2 H Lymph % (Auto) 9.4 L [place] # 0.9 H Seg Neutrophils % 84.2 H Seg Neutrophils # 13.6 H BUN 30 H Glucose 147 H POC Glucose AST 51 H CK-MB (CK-2) Rel Index Troponin T 0.099 H NT-Pro-B Natriuret Pep 79594 H Albumin 3.5 L LDL Cholesterol Direct HDL Cholesterol Urine WBC (Auto) > 182.0 H 11/29/18 11/29/18 11/29/18 07:48 12:09 12:09 WBC Hgb Hct Lymph % (Auto) [place] # Seg Neutrophils % Seg Neutrophils # BUN Glucose POC Glucose 143 H 117 H AST CK-MB (CK-2) Rel Index 7.3 H Troponin T 0.094 H NT-Pro-B Natriuret Pep Albumin LDL Cholesterol Direct HDL Cholesterol Urine WBC (Auto) 11/29/18 11/29/18 11/29/18 16:47 18:01 21:01 WBC Hgb Hct Lymph % (Auto) [place] # Seg Neutrophils % Seg Neutrophils # BUN Glucose POC Glucose 142 H 226 H AST CK-MB (CK-2) Rel Index 6.6 H Troponin T 0.086 H NT-Pro-B Natriuret Pep Albumin LDL Cholesterol Direct 33 L HDL Cholesterol 34 L Urine WBC (Auto) 11/30/18 11/30/18 11/30/18 03:17 07:56 11:44 WBC Hgb Hct Lymph % (Auto) [place] # Seg Neutrophils % Seg Neutrophils # BUN Glucose POC Glucose 163 H 205 H 221 H AST CK-MB (CK-2) Rel Index Troponin T NT-Pro-B Natriuret Pep Albumin LDL Cholesterol Direct HDL Cholesterol Urine WBC (Auto) 11/30/18 11/30/18 12/01/18 16:47 20:19 03:47 WBC 15.3 H Hgb Hct Lymph % (Auto) 9.6 L [place] # 1.0 H Seg Neutrophils % 83.3 H Seg Neutrophils # 12.8 H BUN Glucose POC Glucose 196 H 218 H AST CK-MB (CK-2) Rel Index Troponin T NT-Pro-B Natriuret Pep Albumin LDL Cholesterol Direct HDL Cholesterol Urine WBC (Auto) 12/01/18 12/01/18 12/01/18 03:47 08:04 11:56 WBC Hgb Hct Lymph % (Auto) [place] # Seg Neutrophils % Seg Neutrophils # BUN 27 H Glucose 190 H POC Glucose 212 H 310 H AST CK-MB (CK-2) Rel Index Troponin T NT-Pro-B Natriuret Pep Albumin LDL Cholesterol Direct HDL Cholesterol Urine WBC (Auto) 12/01/18 12/01/18 12/02/18 16:32 21:51 07:54 WBC Hgb Hct Lymph % (Auto) [place] # Seg Neutrophils % Seg Neutrophils # BUN Glucose POC Glucose 278 H 158 H 175 H AST CK-MB (CK-2) Rel Index Troponin T NT-Pro-B Natriuret Pep Albumin LDL Cholesterol Direct HDL Cholesterol Urine WBC (Auto) 12/02/18 12/02/18 12/02/18 11:34 16:46 18:41 WBC Hgb Hct Lymph % (Auto) [place] # Seg Neutrophils % Seg Neutrophils # BUN Glucose POC Glucose 271 H 178 H 248 H AST CK-MB (CK-2) Rel Index Troponin T NT-Pro-B Natriuret Pep Albumin LDL Cholesterol Direct HDL Cholesterol Urine WBC (Auto) 12/02/18 12/03/18 12/03/18 20:42 07:33 12:54 WBC Hgb Hct Lymph % (Auto) [place] # Seg Neutrophils % Seg Neutrophils # BUN Glucose POC Glucose 212 H 141 H 228 H AST CK-MB (CK-2) Rel Index Troponin T NT-Pro-B Natriuret Pep Albumin LDL Cholesterol Direct HDL Cholesterol Urine WBC (Auto) 12/03/18 12/03/18 12/04/18 16:49 22:48 07:39 WBC Hgb Hct Lymph % (Auto) [place] # Seg Neutrophils % Seg Neutrophils # BUN Glucose POC Glucose 207 H 217 H 155 H AST CK-MB (CK-2) Rel Index Troponin T NT-Pro-B Natriuret Pep Albumin LDL Cholesterol Direct HDL Cholesterol Urine WBC (Auto)
--- NOTE | 2018-12-04 12:42 | Progress Note ---
Subjective - Reason for Consult Consult date: 12/04/18 Reason for consult: Psychiatry Follow-up - Chief Complaint Chief complaint: "Hello" 83 y.o. white female who presented to the ER for SOB. Psychiatry was consulted to see the patient for behavioral disturbance. Today the patient was calm and cooperative during the assessment. She stated that she is feeling much better. She was able to answers all questions logically. She denies SI/HI's, being depr essed, and AVH's. Mental Status Exam - Vital signs Last Vital Signs Temp 98.0 F 12/04/18 07:35 Pulse 80 12/04/18 09:30 Resp 18 12/04/18 07:35 BP 111/46 12/04/18 09:30 Pulse Ox 97 12/04/18 10:00 - Exam Narrative exam: MSE: Appearance: calm, cooperative Behavior: regular eye contact Speech: regular rate and tone Mood: "okay" Affect: congruent to mood Thought Process: logical Thought Content: denies SI/HI's and AVH's Motor Activity: sitting up in bed Cognition: A/O x3 Insight: appropriate Judgment: appropriate Assessment and Plan Impression: Hx of depression. Today the patient was calm and cooperative during the assessment. Recommendation/Plan: The patient can follow up with her PCP. Psy sign off. Will staff Dr Alexandrea Sotelo.
[2018-12-04 13:31] LABS: INR 1.27 (0.87-1.13)
[2018-12-04 13:39] LABS: Calcium 9.1 mg/dL (8.4-10.2)
--- NOTE | 2018-12-04 18:31 | Progress Note ---
Assessment and Plan 83-year-old woman with history of hypertension, gout, CVA, hypercholesterolemia, chronic respiratory failure on home oxygen who presented to the hospital with shortness of breath. 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, this is likely a large contributing factor to her CHF., Patient will likely benefit from cardiac have when heart failure symptoms ultimately resolved The patient's may ultimately benefit from mitral valve replacement, however surgical management may be contraindicated given patient's advanced age and overall poor clinical status and dementia, cardiology input appreciated Acute on chronic hypoxic respiratory failure Continue oxygen supplement Dementia, MH consult, patient is talking non stop in the room despite being hypoxic DVT prophylaxis with Lovenox Subjective Date of service: 12/04/18 Principal diagnosis: pl effusion Interval history: 83-year-old woman with history of hypertension, gout, CVA, hypercholesterolemia, chronic respiratory failure on home oxygen who presented to the hospital with shortness of breath. Patient has a history of COPD and CHF. and MV disease Objective - Constitutional Vitals: Vital Signs - 12hr 12/04/18 12/04/18 12/04/18 06:53 07:35 09:29 Temperature 98.0 F Pulse Rate 70 80 Respiratory 18 Rate Blood Pressure 114/51 111/46 111/46 O2 Sat by Pulse Oximetry 12/04/18 12/04/18 09:30 10:00 Temperature Pulse Rate 80 Respiratory Rate Blood Pressure 111/46 O2 Sat by Pulse 97 Oximetry General appearance: Present: no acute distress, well-nourished - EENT Eyes: PERRL, EOM intact ENT: hearing intact, clear oral mucosa Ears: bilateral: normal - Neck Neck: supple, normal ROM - Respiratory Respiratory effort: normal Respiratory: bilateral: CTA - Breasts Breasts: normal - Cardiovascular Rhythm: regular Heart Sounds: Present: S1 & S2. Absent: gallop, rub Extremities: pulses intact, No edema, normal color, Full ROM - Gastrointestinal General gastrointestinal: Present: soft, non-tender, non-distended, normal bowel sounds - Genitourinary Female genitourinary: normal - Integumentary Integumentary: clear, warm, dry - Musculoskeletal Musculoskeletal: 1, strength equal bilaterally - Neurologic Neurologic: moves all extremities - Psychiatric Psychiatric: memory intact, appropriate mood/affect, intact judgment & insight - Labs CBC & Chem 7: 12/01/18 03:47 12/06/18 11:05 Labs: Abnormal lab results 12/03/18 12/04/18 12/04/18 Range/Units 22:48 07:39 11:13 PT (12.2-14.9) Sec. INR (0.87-1.13) Chloride (98-107) mmol/L Carbon Dioxide (22-30) mmol/L BUN (7-17) mg/dL Glucose (65-100) mg/dL POC Glucose 217 H 155 H 281 H (70-105) 12/04/18 12/04/18 12/04/18 Range/Units 13:06 13:06 15:51 PT 15.6 H (12.2-14.9) Sec. INR 1.27 H (0.87-1.13) Chloride 95.2 L (98-107) mmol/L Carbon Dioxide 35 H D (22-30) mmol/L BUN 32 H (7-17) mg/dL Glucose 292 H (65-100) mg/dL POC Glucose 234 H (70-105)
[2018-12-04] MEDS: COZAAR PO SCH (21:05)
[2018-12-04] MEDS: MELATONIN PO SCH (22:50)
[2018-12-04] MEDS: LANTUS SUB-Q SCH (22:55)
[2018-12-05] MEDS: ROCEPHIN/NS 1 GM/50 ML 1 GM/50 ML BAG IV SCH (06:46)
[2018-12-05] MEDS: LASIX IV SCH ×2 (06:46→17:34)
[2018-12-05] MEDS: SYNTHROID PO SCH (06:46)
[2018-12-05] MEDS: NITRO-BID 2% TP SCH ×5 (06:47→17:39)
[2018-12-05] MEDS: HumuLIN R SUB-Q SCH ×4 (07:57→21:51)
[2018-12-05] MEDS: THERAGRAN Tab PO SCH (09:53)
[2018-12-05] MEDS: NORVASC PO SCH (09:54)
[2018-12-05] MEDS: LOPRESSOR PO SCH ×2 (09:54→21:49)
[2018-12-05] MEDS: ZYLOPRIM PO SCH (09:54)
[2018-12-05] MEDS: HEPARIN SUB-Q SCH ×2 (09:57→21:49)
[2018-12-05] MEDS: HALFPRIN EC PO SCH (10:04)
--- NOTE | 2018-12-05 10:44 | Progress Note ---
Assessment and Plan 83 y/o female with bilateral pleural effusion, right > left 1. Thora planned for Saturday. 2. Continue IV diuresis 3. Will repeat CXR today to see if effusions are improving with diuretics. Subjective Date of service: 12/05/18 Principal diagnosis: pl effusion Interval history: No acute events. I/o likely not accurate but appears patient is negative. Scheduled for thora on Saturday. On 3 liters NC satting 95%. Objective Vital Signs - 12hr 12/04/18 12/04/18 12/05/18 22:50 23:26 03:36 Temperature 98.5 F 98.1 F Pulse Rate 75 79 76 Respiratory 20 20 Rate Blood Pressure 123/54 123/54 118/50 O2 Sat by Pulse 97 94 Oximetry 12/05/18 12/05/18 12/05/18 06:47 09:00 09:54 Temperature 98.4 F Pulse Rate 76 71 70 Respiratory 28 H Rate Blood Pressure 118/50 116/47 112/41 O2 Sat by Pulse 94 Oximetry 12/05/18 09:55 Temperature Pulse Rate 70 Respiratory Rate Blood Pressure 112/41 O2 Sat by Pulse Oximetry Constitutional: alert Eyes: non-icteric ENT: oropharynx dry Neck: supple Effort: normal Ascultation: Bilateral: clear (no wheeze ), diminished breath sounds (absent bs bases ) Percussion: Bilateral: dull (bases) Cardiovascular: irregular rhythm, murmur noted (hi pitched holosys) Gastrointestinal: soft Integumentary: normal Extremities: no edema Neurologic: normal mental status CBC and BMP: 12/01/18 03:47 12/04/18 13:06 ABG, PT/INR, D-dimer: PT/INR, D-dimer PT 15.6 Sec. (12.2-14.9) H 12/04/18 13:06 INR 1.27 (0.87-1.13) H 12/04/18 13:06 Abnormal lab findings: Abnormal Labs 11/29/18 11/29/18 11/29/18 02:35 03:31 03:31 WBC 16.1 H Hgb 14.6 H Hct 44.2 H Lymph % (Auto) 9.4 L [place] # 0.9 H Seg Neutrophils % 84.2 H Seg Neutrophils # 13.6 H PT INR Chloride Carbon Dioxide BUN 30 H Glucose 147 H POC Glucose AST 51 H CK-MB (CK-2) Rel Index Troponin T 0.099 H NT-Pro-B Natriuret Pep 24290 H Albumin 3.5 L LDL Cholesterol Direct HDL Cholesterol Urine WBC (Auto) > 182.0 H 11/29/18 11/29/18 11/29/18 07:48 12:09 12:09 WBC Hgb Hct Lymph % (Auto) [place] # Seg Neutrophils % Seg Neutrophils # PT INR Chloride Carbon Dioxide BUN Glucose POC Glucose 143 H 117 H AST CK-MB (CK-2) Rel Index 7.3 H Troponin T 0.094 H NT-Pro-B Natriuret Pep Albumin LDL Cholesterol Direct HDL Cholesterol Urine WBC (Auto) 11/29/18 11/29/18 11/29/18 16:47 18:01 21:01 WBC Hgb Hct Lymph % (Auto) [place] # Seg Neutrophils % Seg Neutrophils # PT INR Chloride Carbon Dioxide BUN Glucose POC Glucose 142 H 226 H AST CK-MB (CK-2) Rel Index 6.6 H Troponin T 0.086 H NT-Pro-B Natriuret Pep Albumin LDL Cholesterol Direct 33 L HDL Cholesterol 34 L Urine WBC (Auto) 11/30/18 11/30/18 11/30/18 03:17 07:56 11:44 WBC Hgb Hct Lymph % (Auto) [place] # Seg Neutrophils % Seg Neutrophils # PT INR Chloride Carbon Dioxide BUN Glucose POC Glucose 163 H 205 H 221 H AST CK-MB (CK-2) Rel Index Troponin T NT-Pro-B Natriuret Pep Albumin LDL Cholesterol Direct HDL Cholesterol Urine WBC (Auto) 11/30/18 11/30/18 12/01/18 16:47 20:19 03:47 WBC 15.3 H Hgb Hct Lymph % (Auto) 9.6 L [place] # 1.0 H Seg Neutrophils % 83.3 H Seg Neutrophils # 12.8 H PT INR Chloride Carbon Dioxide BUN Glucose POC Glucose 196 H 218 H AST CK-MB (CK-2) Rel Index Troponin T NT-Pro-B Natriuret Pep Albumin LDL Cholesterol Direct HDL Cholesterol Urine WBC (Auto) 12/01/18 12/01/18 12/01/18 03:47 08:04 11:56 WBC Hgb Hct Lymph % (Auto) [place] # Seg Neutrophils % Seg Neutrophils # PT INR Chloride Carbon Dioxide BUN 27 H Glucose 190 H POC Glucose 212 H 310 H AST CK-MB (CK-2) Rel Index Troponin T NT-Pro-B Natriuret Pep Albumin LDL Cholesterol Direct HDL Cholesterol Urine WBC (Auto) 12/01/18 12/01/18 12/02/18 16:32 21:51 07:54 WBC Hgb Hct Lymph % (Auto) [place] # Seg Neutrophils % Seg Neutrophils # PT INR Chloride Carbon Dioxide BUN Glucose POC Glucose 278 H 158 H 175 H AST CK-MB (CK-2) Rel Index Troponin T NT-Pro-B Natriuret Pep Albumin LDL Cholesterol Direct HDL Cholesterol Urine WBC (Auto) 12/02/18 12/02/18 12/02/18 11:34 16:46 18:41 WBC Hgb Hct Lymph % (Auto) [place] # Seg Neutrophils % Seg Neutrophils # PT INR Chloride Carbon Dioxide BUN Glucose POC Glucose 271 H 178 H 248 H AST CK-MB (CK-2) Rel Index Troponin T NT-Pro-B Natriuret Pep Albumin LDL Cholesterol Direct HDL Cholesterol Urine WBC (Auto) 12/02/18 12/03/18 12/03/18 20:42 07:33 12:54 WBC Hgb Hct Lymph % (Auto) [place] # Seg Neutrophils % Seg Neutrophils # PT INR Chloride Carbon Dioxide BUN Glucose POC Glucose 212 H 141 H 228 H AST CK-MB (CK-2) Rel Index Troponin T NT-Pro-B Natriuret Pep Albumin LDL Cholesterol Direct HDL Cholesterol Urine WBC (Auto) 12/03/18 12/03/18 12/04/18 16:49 22:48 07:39 WBC Hgb Hct Lymph % (Auto) [place] # Seg Neutrophils % Seg Neutrophils # PT INR Chloride Carbon Dioxide BUN Glucose POC Glucose 207 H 217 H 155 H AST CK-MB (CK-2) Rel Index Troponin T NT-Pro-B Natriuret Pep Albumin LDL Cholesterol Direct HDL Cholesterol Urine WBC (Auto) 12/04/18 12/04/18 12/04/18 11:13 13:06 13:06 WBC Hgb Hct Lymph % (Auto) [place] # Seg Neutrophils % Seg Neutrophils # PT 15.6 H INR 1.27 H Chloride 95.2 L [place] 35 H D BUN 32 H Glucose 292 H POC Glucose 281 H AST CK-MB (CK-2) Rel Index Troponin T NT-Pro-B Natriuret Pep Albumin LDL Cholesterol Direct HDL Cholesterol Urine WBC (Auto) 12/04/18 12/04/18 12/05/18 15:51 20:56 07:21 WBC Hgb Hct Lymph % (Auto) [place] # Seg Neutrophils % Seg Neutrophils # PT INR Chloride Carbon Dioxide BUN Glucose POC Glucose 234 H 285 H 149 H AST CK-MB (CK-2) Rel Index Troponin T NT-Pro-B Natriuret Pep Albumin LDL Cholesterol Direct HDL Cholesterol Urine WBC (Auto)
--- NOTE | 2018-12-05 11:34 | XRay Report ---
CHEST 2 VIEWS INDICATION / CLINICAL INFORMATION: Pleural effusions. COMPARISON: 12/01/2018 FINDINGS: SUPPORT DEVICES: None. HEART / MEDIASTINUM: No significant abnormality. LUNGS / PLEURA: Small bilateral pleural effusions. Patchy consolidation of the right lung present. Signer Name: Ishmael Jeong MD Signed: 12/05/2018 11:29 AM Workstation Name: [id number]
--- NOTE | 2018-12-05 14:58 | Progress Note ---
Assessment and Plan Pleural effusion, small by X-ray Congestive heart failure Mitral valve disease, rheumatic Dual chamber PPM An echocardiogram done during this admission shows a calcified mitral valve with at least moderate mitral stenosis, mean transmitral gradient of 10. In addition, there was severe mitral regurgitation. Left ventricle systolic function well- preserved, ejection fraction 50-55%. There was moderate pulmonary hypertension with a pulmonary artery systolic pressure of 44. Recommendation: Continue medical therapy with diuretics, afterload agents, spironolactone and blood pressure management as indicated. Pulmonary management of persistent pleural effusion in progress. Will defer decision on whether to intervene or not on her mitral valve to her primary ride mechanic after discussion with patient and family. Subjective Date of service: 12/05/18 Principal diagnosis: pl effusion Interval history: Patient states that her breathing is improved Objective Vital Signs Temp Pulse Pulse Pulse Pulse Resp BP 12/05/18 13:02 74 121/51 12/05/18 10:00 74 74 74 21 12/05/18 09:55 70 112/41 12/05/18 09:54 70 112/41 12/05/18 09:53 70 112/41 12/05/18 09:00 98.4 F 71 28 H 116/47 12/05/18 06:47 76 118/50 12/05/18 03:36 98.1 F 76 20 118/50 12/04/18 23:26 98.5 F 79 20 123/54 12/04/18 22:50 75 123/54 12/04/18 22:00 84 82 82 18 12/04/18 21:05 75 123/54 12/04/18 20:40 12/04/18 19:35 98.4 F 82 18 123/54 12/04/18 16:51 98.3 F 18 116/51 Pulse Ox 12/05/18 13:02 99 12/05/18 10:00 97 12/05/18 09:55 12/05/18 09:54 12/05/18 09:53 93 12/05/18 09:00 94 12/05/18 06:47 12/05/18 03:36 94 12/04/18 23:26 97 12/04/18 22:50 12/04/18 22:00 97 12/04/18 21:05 12/04/18 20:40 95 12/04/18 19:35 96 12/04/18 16:51 - Physical Examination General: No Apparent Distress HEENT: Positive: PERRL Neck: Positive: trachea midline Cardiac: Positive: Reg Rate and Rhythm Lungs: Positive: Decreased Breath Sounds Neuro: Positive: Grossly Intact Abdomen: Positive: Soft Skin: Positive: Clear Extremities: Absent: edema
--- NOTE | 2018-12-05 18:02 | Progress Note ---
Assessment and Plan 83-year-old woman with history of hypertension, gout, CVA, hypercholesterolemia, chronic respiratory failure on home oxygen who presented to the hospital with shortness of breath. 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, this is likely a large contributing factor to her CHF., Patient will likely benefit from cardiac have when heart failure symptoms ultimately resolved The patient's may ultimately benefit from mitral valve replacement, however surgical management may be contraindicated given patient's advanced age and overall poor clinical status and dementia, cardiology input appreciated Acute on chronic hypoxic respiratory failure Continue oxygen supplement Dementia, MH consult, patient is talking non stop in the room despite being hypoxic DVT prophylaxis with Lovenox Subjective Date of service: 12/05/18 Principal diagnosis: pl effusion Interval history: 83-year-old woman with history of hypertension, gout, CVA, hypercholesterolemia, chronic respiratory failure on home oxygen who presented to the hospital with shortness of breath. Patient has a history of COPD and CHF. and MV disease Objective - Constitutional Vitals: Vital Signs - 12hr 12/05/18 12/05/18 12/05/18 06:47 09:00 09:53 Temperature 98.4 F Pulse Rate 76 71 70 Pulse Rate [ Apical] Pulse Rate [ Left Radial] Pulse Rate [ Right Radial] Respiratory 28 H Rate Blood Pressure 118/50 116/47 112/41 O2 Sat by Pulse 94 93 Oximetry 12/05/18 12/05/18 12/05/18 09:54 09:55 10:00 Temperature Pulse Rate 70 70 67 Pulse Rate [ 74 Apical] Pulse Rate [ 74 Left Radial] Pulse Rate [ 74 Right Radial] Respiratory 21 Rate Blood Pressure 112/41 112/41 O2 Sat by Pulse 95 Oximetry 12/05/18 12/05/18 12/05/18 13:02 17:34 17:38 Temperature Pulse Rate 74 85 87 Pulse Rate [ Apical] Pulse Rate [ Left Radial] Pulse Rate [ Right Radial] Respiratory Rate Blood Pressure 121/51 137/60 111/67 O2 Sat by Pulse 99 Oximetry 12/05/18 17:39 Temperature Pulse Rate 78 Pulse Rate [ Apical] Pulse Rate [ Left Radial] Pulse Rate [ Right Radial] Respiratory Rate Blood Pressure 101/68 O2 Sat by Pulse Oximetry General appearance: Present: no acute distress, well-nourished - EENT Eyes: PERRL, EOM intact ENT: hearing intact, clear oral mucosa Ears: bilateral: normal - Neck Neck: supple, normal ROM - Respiratory Respiratory effort: normal Respiratory: bilateral: CTA - Breasts Breasts: normal - Cardiovascular Rhythm: regular Heart Sounds: Present: S1 & S2. Absent: gallop, rub Extremities: pulses intact, No edema, normal color, Full ROM - Gastrointestinal General gastrointestinal: Present: soft, non-tender, non-distended, normal bowel sounds - Genitourinary Female genitourinary: normal - Integumentary Integumentary: clear, warm, dry - Musculoskeletal Musculoskeletal: 1, strength equal bilaterally - Neurologic Neurologic: moves all extremities - Psychiatric Psychiatric: memory intact, appropriate mood/affect, intact judgment & insight - Labs CBC & Chem 7: 12/01/18 03:47 12/06/18 11:05 Labs: Abnormal lab results 12/04/18 12/05/18 12/05/18 Range/Units 20:56 07:21 12:39 POC Glucose 285 H 149 H 326 H (70-105) 12/05/18 Range/Units 16:38 POC Glucose 210 H (70-105)
[2018-12-05] MEDS: COZAAR PO SCH (21:48)
[2018-12-05] MEDS: LANTUS SUB-Q SCH (21:50)
[2018-12-05] MEDS: MELATONIN PO SCH (21:51)
[2018-12-06] MEDS: SYNTHROID PO SCH (05:36)
[2018-12-06] MEDS: LASIX IV SCH ×2 (05:36→17:34)
[2018-12-06] MEDS: NITRO-BID 2% TP SCH ×4 (05:37→17:35)
[2018-12-06] MEDS: HumuLIN R SUB-Q SCH ×4 (09:18→21:27)
--- NOTE | 2018-12-06 09:51 | Progress Note ---
Assessment and Plan Pleural effusion, small by X-ray Congestive heart failure Mitral valve disease, rheumatic Dual chamber PPM An echocardiogram done during this admission shows a calcified mitral valve with at least moderate mitral stenosis, mean transmitral gradient of 10. In addition, there was severe mitral regurgitation. Left ventricle systolic function well- preserved, ejection fraction 50-55%. There was moderate pulmonary hypertension with a pulmonary artery systolic pressure of 44. Recommendation: Continue medical therapy with diuretics, afterload agents, spironolactone and blood pressure management as indicated. Pulmonary management of persistent pleural effusion in progress. Check BMP Will defer decision on whether to intervene or not on her mitral valve to her primary retail salesworker after discussion with patient and family. Subjective Date of service: 12/06/18 Principal diagnosis: pl effusion Interval history: Patient is doing better Objective Vital Signs Temp Pulse Pulse Pulse Pulse Resp BP 12/06/18 08:01 98.3 F 77 18 113/44 12/06/18 05:37 86 128/50 12/06/18 05:35 81 12/06/18 03:44 98.3 F 91 H 20 143/48 12/06/18 00:00 12/05/18 23:06 98.8 F 84 20 12/05/18 22:00 74 80 80 80 20 12/05/18 21:49 74 127/54 12/05/18 21:48 74 127/54 12/05/18 21:47 73 12/05/18 20:17 12/05/18 19:16 99.5 F 76 20 104/44 12/05/18 17:39 78 101/68 12/05/18 17:38 87 111/67 12/05/18 17:34 85 137/60 12/05/18 17:30 84 137/60 12/05/18 13:02 74 121/51 12/05/18 12:00 64 12/05/18 10:00 67 74 74 74 21 12/05/18 09:55 70 112/41 12/05/18 09:54 70 112/41 12/05/18 09:53 70 112/41 BP Pulse Ox 12/06/18 08:01 96 12/06/18 05:37 12/06/18 05:35 94 12/06/18 03:44 94 12/06/18 00:00 142/63 07/26/19 23:06 96 12/05/18 22:00 98 12/05/18 21:49 12/05/18 21:48 12/05/18 21:47 96 12/05/18 20:17 94 12/05/18 19:16 94 12/05/18 17:39 12/05/18 17:38 12/05/18 17:34 12/05/18 17:30 93 12/05/18 13:02 99 12/05/18 12:00 12/05/18 10:00 95 12/05/18 09:55 12/05/18 09:54 12/05/18 09:53 93 - Physical Examination General: No Apparent Distress HEENT: Positive: PERRL Neck: Positive: trachea midline Cardiac: Positive: Reg Rate and Rhythm Lungs: Positive: Rales (RLL crackles and bibasilar decrease in breath sounds) Neuro: Positive: Grossly Intact Abdomen: Positive: Soft Skin: Positive: Clear Extremities: Absent: edema
[2018-12-06] MEDS: ZYLOPRIM PO SCH (10:06)
[2018-12-06] MEDS: LOPRESSOR PO SCH ×2 (10:06→21:25)
[2018-12-06] MEDS: THERAGRAN Tab PO SCH (10:06)
[2018-12-06] MEDS: HALFPRIN EC PO SCH (10:07)
[2018-12-06] MEDS: NORVASC PO SCH (10:08)
[2018-12-06] MEDS: HEPARIN SUB-Q SCH ×2 (10:08→21:27)
[2018-12-06 12:05] LABS: BUN/Creatinine Ratio 44; Blood Urea Nitrogen 35 mg/dL (7-17); Calcium 8.9 mg/dL (8.4-10.2); Hemolysis Index 1
--- NOTE | 2018-12-06 13:38 | Progress Note ---
Assessment and Plan Impression: Congestive heart failure Bilateral moderate pleural effusion secondary to above Dyspnea secondary to above Recommendation: Continue with diuresis. Thoracentesis scheduled for Saturday. Subjective Date of service: 12/06/18 Principal diagnosis: pl effusion Interval history: Patient remained stable, no increased shortness of breath reasonably comfortable at rest. Objective Vital Signs - 12hr 12/06/18 12/06/18 12/06/18 03:44 05:35 05:37 Temperature 98.3 F Pulse Rate 91 H 81 86 Pulse Rate [ Apical] Pulse Rate [ Left Radial] Pulse Rate [ Right Radial] Respiratory 20 Rate Blood Pressure 143/48 128/50 O2 Sat by Pulse 94 94 Oximetry 12/06/18 12/06/18 12/06/18 08:01 10:00 10:06 Temperature 98.3 F Pulse Rate 77 80 Pulse Rate [ 86 Apical] Pulse Rate [ 86 Left Radial] Pulse Rate [ 86 Right Radial] Respiratory 18 22 Rate Blood Pressure 113/44 117/44 O2 Sat by Pulse 96 93 Oximetry 12/06/18 12/06/18 10:07 10:08 Temperature Pulse Rate 80 80 Pulse Rate [ Apical] Pulse Rate [ Left Radial] Pulse Rate [ Right Radial] Respiratory Rate Blood Pressure 117/44 117/44 O2 Sat by Pulse Oximetry Constitutional: alert Eyes: non-icteric ENT: oropharynx dry Neck: supple Effort: normal Ascultation: Bilateral: clear (no wheeze ), diminished breath sounds (absent bs bases ) Percussion: Bilateral: dull (bases) Cardiovascular: irregular rhythm, murmur noted (hi pitched holosys) Gastrointestinal: soft Integumentary: normal Extremities: no edema Neurologic: normal mental status CBC and BMP: 12/01/18 03:47 12/06/18 11:05 ABG, PT/INR, D-dimer: PT/INR, D-dimer PT 15.6 Sec. (12.2-14.9) H 12/04/18 13:06 INR 1.27 (0.87-1.13) H 12/04/18 13:06 Abnormal lab findings: Abnormal Labs 11/29/18 11/29/18 11/29/18 02:35 03:31 03:31 WBC 16.1 H Hgb 14.6 H Hct 44.2 H Lymph % (Auto) 9.4 L [place] # 0.9 H Seg Neutrophils % 84.2 H Seg Neutrophils # 13.6 H PT INR Chloride Carbon Dioxide BUN 30 H Glucose 147 H POC Glucose AST 51 H CK-MB (CK-2) Rel Index Troponin T 0.099 H NT-Pro-B Natriuret Pep 21670 H Albumin 3.5 L LDL Cholesterol Direct HDL Cholesterol Urine WBC (Auto) > 182.0 H 11/29/18 11/29/18 11/29/18 07:48 12:09 12:09 WBC Hgb Hct Lymph % (Auto) [place] # Seg Neutrophils % Seg Neutrophils # PT INR Chloride Carbon Dioxide BUN Glucose POC Glucose 143 H 117 H AST CK-MB (CK-2) Rel Index 7.3 H Troponin T 0.094 H NT-Pro-B Natriuret Pep Albumin LDL Cholesterol Direct HDL Cholesterol Urine WBC (Auto) 11/29/18 11/29/18 11/29/18 16:47 18:01 21:01 WBC Hgb Hct Lymph % (Auto) [place] # Seg Neutrophils % Seg Neutrophils # PT INR Chloride Carbon Dioxide BUN Glucose POC Glucose 142 H 226 H AST CK-MB (CK-2) Rel Index 6.6 H Troponin T 0.086 H NT-Pro-B Natriuret Pep Albumin LDL Cholesterol Direct 33 L HDL Cholesterol 34 L Urine WBC (Auto) 11/30/18 11/30/18 11/30/18 03:17 07:56 11:44 WBC Hgb Hct Lymph % (Auto) [place] # Seg Neutrophils % Seg Neutrophils # PT INR Chloride Carbon Dioxide BUN Glucose POC Glucose 163 H 205 H 221 H AST CK-MB (CK-2) Rel Index Troponin T NT-Pro-B Natriuret Pep Albumin LDL Cholesterol Direct HDL Cholesterol Urine WBC (Auto) 11/30/18 11/30/18 12/01/18 16:47 20:19 03:47 WBC 15.3 H Hgb Hct Lymph % (Auto) 9.6 L [place] # 1.0 H Seg Neutrophils % 83.3 H Seg Neutrophils # 12.8 H PT INR Chloride Carbon Dioxide BUN Glucose POC Glucose 196 H 218 H AST CK-MB (CK-2) Rel Index Troponin T NT-Pro-B Natriuret Pep Albumin LDL Cholesterol Direct HDL Cholesterol Urine WBC (Auto) 12/01/18 12/01/18 12/01/18 03:47 08:04 11:56 WBC Hgb Hct Lymph % (Auto) [place] # Seg Neutrophils % Seg Neutrophils # PT INR Chloride Carbon Dioxide BUN 27 H Glucose 190 H POC Glucose 212 H 310 H AST CK-MB (CK-2) Rel Index Troponin T NT-Pro-B Natriuret Pep Albumin LDL Cholesterol Direct HDL Cholesterol Urine WBC (Auto) 12/01/18 12/01/18 12/02/18 16:32 21:51 07:54 WBC Hgb Hct Lymph % (Auto) [place] # Seg Neutrophils % Seg Neutrophils # PT INR Chloride Carbon Dioxide BUN Glucose POC Glucose 278 H 158 H 175 H AST CK-MB (CK-2) Rel Index Troponin T NT-Pro-B Natriuret Pep Albumin LDL Cholesterol Direct HDL Cholesterol Urine WBC (Auto) 12/02/18 12/02/18 12/02/18 11:34 16:46 18:41 WBC Hgb Hct Lymph % (Auto) [place] # Seg Neutrophils % Seg Neutrophils # PT INR Chloride Carbon Dioxide BUN Glucose POC Glucose 271 H 178 H 248 H AST CK-MB (CK-2) Rel Index Troponin T NT-Pro-B Natriuret Pep Albumin LDL Cholesterol Direct HDL Cholesterol Urine WBC (Auto) 12/02/18 12/03/18 12/03/18 20:42 07:33 12:54 WBC Hgb Hct Lymph % (Auto) [place] # Seg Neutrophils % Seg Neutrophils # PT INR Chloride Carbon Dioxide BUN Glucose POC Glucose 212 H 141 H 228 H AST CK-MB (CK-2) Rel Index Troponin T NT-Pro-B Natriuret Pep Albumin LDL Cholesterol Direct HDL Cholesterol Urine WBC (Auto) 12/03/18 12/03/18 12/04/18 16:49 22:48 07:39 WBC Hgb Hct Lymph % (Auto) [place] # Seg Neutrophils % Seg Neutrophils # PT INR Chloride Carbon Dioxide BUN Glucose POC Glucose 207 H 217 H 155 H AST CK-MB (CK-2) Rel Index Troponin T NT-Pro-B Natriuret Pep Albumin LDL Cholesterol Direct HDL Cholesterol Urine WBC (Auto) 12/04/18 12/04/18 12/04/18 11:13 13:06 13:06 WBC Hgb Hct Lymph % (Auto) [place] # Seg Neutrophils % Seg Neutrophils # PT 15.6 H INR 1.27 H Chloride 95.2 L Carbon Dioxide 35 H D BUN 32 H Glucose 292 H POC Glucose 281 H AST CK-MB (CK-2) Rel Index Troponin T NT-Pro-B Natriuret Pep Albumin LDL Cholesterol Direct HDL Cholesterol Urine WBC (Auto) 12/04/18 12/04/18 12/05/18 15:51 20:56 07:21 WBC Hgb Hct Lymph % (Auto) [place] # Seg Neutrophils % Seg Neutrophils # PT INR Chloride Carbon Dioxide BUN Glucose POC Glucose 234 H 285 H 149 H AST CK-MB (CK-2) Rel Index Troponin T NT-Pro-B Natriuret Pep Albumin LDL Cholesterol Direct HDL Cholesterol Urine WBC (Auto) 12/05/18 12/05/18 12/05/18 12:39 16:38 20:35 WBC Hgb Hct Lymph % (Auto) [place] # Seg Neutrophils % Seg Neutrophils # PT INR Chloride Carbon Dioxide BUN Glucose POC Glucose 326 H 210 H 145 H AST CK-MB (CK-2) Rel Index Troponin T NT-Pro-B Natriuret Pep Albumin LDL Cholesterol Direct HDL Cholesterol Urine WBC (Auto) 12/06/18 12/06/18 12/06/18 08:09 11:05 12:39 WBC Hgb Hct Lymph % (Auto) [place] # Seg Neutrophils % Seg Neutrophils # PT INR Chloride 96.1 L Carbon Dioxide 35 H BUN 35 H Glucose 210 H POC Glucose 148 H 197 H AST CK-MB (CK-2) Rel Index Troponin T NT-Pro-B Natriuret Pep Albumin LDL Cholesterol Direct HDL Cholesterol Urine WBC (Auto) Chest x-ray: image reviewed (bilateral pleural effusion without significant improvement)
--- NOTE | 2018-12-06 16:24 | Progress Note ---
Assessment and Plan 83-year-old woman with history of hypertension, gout, CVA, hypercholesterolemia, chronic respiratory failure on home oxygen who presented to the hospital with shortness of breath. 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, this is likely a large contributing factor to her CHF., Patient will likely benefit from cardiac have when heart failure symptoms ultimately resolved The patient's may ultimately benefit from mitral valve replacement, however surgical management may be contraindicated given patient's advanced age and overall poor clinical status and dementia, cardiology input appreciated Acute on chronic hypoxic respiratory failure Continue oxygen supplement Dementia, Supportive DVT prophylaxis with Lovenox Subjective Date of service: 12/06/18 Principal diagnosis: pl effusion Interval history: 83-year-old woman with history of hypertension, gout, CVA, hypercholesterolemia, chronic respiratory failure on home oxygen who presented to the hospital with shortness of breath. Patient has a history of COPD and CHF. and MV disease Objective - Constitutional Vitals: Vital Signs - 12hr 12/06/18 12/06/18 12/06/18 05:35 05:37 08:01 Temperature 98.3 F Pulse Rate 81 86 77 Pulse Rate [ Apical] Pulse Rate [ Left Radial] Pulse Rate [ Right Radial] Respiratory 18 Rate Blood Pressure 128/50 113/44 Blood Pressure [Right] O2 Sat by Pulse 94 96 Oximetry 12/06/18 12/06/18 12/06/18 10:00 10:06 10:07 Temperature Pulse Rate 87 80 80 Pulse Rate [ 86 Apical] Pulse Rate [ 86 Left Radial] Pulse Rate [ 86 Right Radial] Respiratory 22 Rate Blood Pressure 117/44 117/44 Blood Pressure [Right] O2 Sat by Pulse 93 Oximetry 12/06/18 12/06/18 12/06/18 10:08 12:00 14:29 Temperature 98.1 F Pulse Rate 80 69 80 Pulse Rate [ Apical] Pulse Rate [ Left Radial] Pulse Rate [ Right Radial] Respiratory 19 Rate Blood Pressure 117/44 112/45 Blood Pressure 125/53 [Right] O2 Sat by Pulse 98 Oximetry General appearance: Present: no acute distress, well-nourished - EENT Eyes: PERRL, EOM intact ENT: hearing intact, clear oral mucosa Ears: bilateral: normal - Neck Neck: supple, normal ROM - Respiratory Respiratory effort: normal Respiratory: bilateral: CTA - Breasts Breasts: normal - Cardiovascular Rhythm: regular Heart Sounds: Present: S1 & S2. Absent: gallop, rub Extremities: pulses intact, No edema, normal color, Full ROM - Gastrointestinal General gastrointestinal: Present: soft, non-tender, non-distended, normal bowel sounds - Genitourinary Female genitourinary: normal - Integumentary Integumentary: clear, warm, dry - Musculoskeletal Musculoskeletal: 1, strength equal bilaterally - Neurologic Neurologic: moves all extremities - Psychiatric Psychiatric: memory intact, appropriate mood/affect, intact judgment & insight - Labs CBC & Chem 7: 12/01/18 03:47 12/06/18 11:05 Labs: Abnormal lab results 12/05/18 12/05/18 12/06/18 Range/Units 16:38 20:35 08:09 Chloride (98-107) mmol/L Carbon Dioxide (22-30) mmol/L BUN (7-17) mg/dL Glucose (65-100) mg/dL POC Glucose 210 H 145 H 148 H (70-105) 12/06/18 12/06/18 Range/Units 11:05 12:39 Chloride 96.1 L (98-107) mmol/L Carbon Dioxide 35 H (22-30) mmol/L BUN 35 H (7-17) mg/dL Glucose 210 H (65-100) mg/dL POC Glucose 197 H (70-105)
[2018-12-06] MEDS: TYLENOL PO PRN (21:24)
[2018-12-06] MEDS: MELATONIN PO SCH (21:28)
[2018-12-06] MEDS: COZAAR PO SCH (21:28)
[2018-12-06] MEDS: LANTUS SUB-Q SCH (21:29)
[2018-12-07] MEDS: SYNTHROID PO SCH (05:44)
[2018-12-07] MEDS: TYLENOL PO PRN (05:44)
[2018-12-07] MEDS: LASIX IV SCH ×2 (05:44→17:04)
[2018-12-07] MEDS: NITRO-BID 2% TP SCH ×4 (05:46→17:04)
[2018-12-07] MEDS: HEPARIN SUB-Q SCH ×2 (09:43→22:00)
[2018-12-07] MEDS: LOPRESSOR PO SCH ×2 (09:43→21:59)
[2018-12-07] MEDS: HALFPRIN EC PO SCH (09:43)
[2018-12-07] MEDS: ZYLOPRIM PO SCH (09:43)
[2018-12-07] MEDS: THERAGRAN Tab PO SCH (09:43)
[2018-12-07] MEDS: NORVASC PO SCH (09:43)
[2018-12-07] MEDS: HumuLIN R SUB-Q SCH ×4 (09:44→22:01)
[2018-12-07] MEDS ORDERED: CEPHULAC PO ONE (10:00)
--- NOTE | 2018-12-07 11:27 | Progress Note ---
Assessment and Plan Pleural effusion, small by X-ray Congestive heart failure Mitral valve disease, rheumatic Dual chamber PPM An echocardiogram done during this admission shows a calcified mitral valve with at least moderate mitral stenosis, mean transmitral gradient of 10. In addition, there was severe mitral regurgitation. Left ventricle systolic function well- preserved, ejection fraction 50-55%. There was moderate pulmonary hypertension with a pulmonary artery systolic pressure of 44. Recommendation: Continue medical therapy with diuretics, afterload agents, spironolactone and blood pressure management as indicated. Pulmonary management of persistent pleural effusion in progress. Will defer decision on whether to intervene or not on her mitral valve to her primary pattern chart writer after discussion with patient and family. Subjective Date of service: 12/07/18 Principal diagnosis: pl effusion Interval history: She is feeling better overall Objective Vital Signs Temp Pulse Pulse Pulse Pulse Resp BP 12/07/18 10:00 92 H 90 92 H 20 12/07/18 07:49 12/07/18 07:33 97.4 F L 69 18 98/41 12/07/18 06:00 97 H 20 12/07/18 05:46 90 155/71 12/07/18 05:44 22 12/07/18 03:44 97.7 F 66 18 12/06/18 23:49 98.6 F 69 18 102/45 12/06/18 22:00 86 92 H 92 H 92 H 22 12/06/18 21:28 92 H 120/51 12/06/18 21:25 92 H 120/51 12/06/18 21:24 20 12/06/18 19:48 99.2 F 90 18 120/51 12/06/18 18:37 68 12/06/18 17:31 75 128/46 12/06/18 16:51 97.4 F L 73 18 134/48 12/06/18 14:29 80 112/45 12/06/18 12:00 98.1 F 69 19 BP Pulse Ox 12/07/18 10:00 99 12/07/18 07:49 93 12/07/18 07:33 92 12/07/18 06:00 155/71 84 12/07/18 05:46 12/07/18 05:44 12/07/18 03:44 97/40 98 12/06/18 23:49 97 12/06/18 22:00 98 12/06/18 21:28 12/06/18 21:25 12/06/18 21:24 12/06/18 19:48 95 12/06/18 18:37 12/06/18 17:31 97 12/06/18 16:51 94 12/06/18 14:29 12/06/18 12:00 125/53 98 - Physical Examination General: No Apparent Distress HEENT: Positive: PERRL Neck: Positive: trachea midline Cardiac: Positive: Reg Rate and Rhythm Lungs: Positive: Normal Exam Neuro: Positive: Grossly Intact Abdomen: Positive: Soft Skin: Positive: Clear Extremities: Absent: edema - Labs and Meds Comprehensive Metabolic Panel 12/06/18 Range/Units 11:05 Sodium 139 (137-145) mmol/L Potassium 3.8 (3.6-5.0) mmol/L Chloride 96.1 L (98-107) mmol/L Carbon Dioxide 35 H (22-30) mmol/L BUN 35 H (7-17) mg/dL Creatinine 0.8 (0.7-1.2) mg/dL Glucose 210 H (65-100) mg/dL Calcium 8.9 (8.4-10.2) mg/dL
--- NOTE | 2018-12-07 12:29 | Progress Note ---
Assessment and Plan Impression: Congestive heart failure Bilateral moderate pleural effusion secondary to above Dyspnea secondary to above Recommendation: Continue with diuresis. Thoracentesis scheduled for Saturday. Subjective Date of service: 12/07/18 Principal diagnosis: pl effusion Interval history: Patient remained stable, no increased shortness of breath reasonably comfortable at rest. Objective Vital Signs - 12hr 12/07/18 12/07/18 12/07/18 03:44 05:44 05:46 Temperature 97.7 F Pulse Rate 66 90 Pulse Rate [ Apical] Pulse Rate [ Left Radial] Pulse Rate [ Right Radial] Respiratory 18 22 Rate Respiratory Rate [ Generalized] Blood Pressure 155/71 Blood Pressure 97/40 [Right] O2 Sat by Pulse 98 Oximetry 12/07/18 12/07/18 12/07/18 06:00 07:33 07:49 Temperature 97.4 F L Pulse Rate 97 H 69 Pulse Rate [ Apical] Pulse Rate [ Left Radial] Pulse Rate [ Right Radial] Respiratory 20 18 Rate Respiratory Rate [ Generalized] Blood Pressure 98/41 Blood Pressure 155/71 [Right] O2 Sat by Pulse 84 92 93 Oximetry 12/07/18 12/07/18 10:00 11:49 Temperature 97.8 F Pulse Rate 80 70 Pulse Rate [ 92 H Apical] Pulse Rate [ 90 Left Radial] Pulse Rate [ 92 H Right Radial] Respiratory 20 18 Rate Respiratory 16 Rate [ Generalized] Blood Pressure 109/46 Blood Pressure [Right] O2 Sat by Pulse 99 93 Oximetry Constitutional: alert Eyes: non-icteric ENT: oropharynx dry Neck: supple Effort: normal Ascultation: Bilateral: clear (no wheeze ), diminished breath sounds (absent bs bases ) Percussion: Bilateral: dull (bases) Cardiovascular: irregular rhythm, murmur noted (hi pitched holosys) Gastrointestinal: soft Integumentary: normal Extremities: no edema Neurologic: normal mental status CBC and BMP: 12/01/18 03:47 12/06/18 11:05 ABG, PT/INR, D-dimer: PT/INR, D-dimer PT 15.6 Sec. (12.2-14.9) H 12/04/18 13:06 INR 1.27 (0.87-1.13) H 12/04/18 13:06 Abnormal lab findings: Abnormal Labs 11/29/18 11/29/18 11/29/18 02:35 03:31 03:31 WBC 16.1 H Hgb 14.6 H Hct 44.2 H Lymph % (Auto) 9.4 L [place] # 0.9 H Seg Neutrophils % 84.2 H Seg Neutrophils # 13.6 H PT INR Chloride Carbon Dioxide BUN 30 H Glucose 147 H POC Glucose AST 51 H CK-MB (CK-2) Rel Index Troponin T 0.099 H NT-Pro-B Natriuret Pep 46272 H Albumin 3.5 L LDL Cholesterol Direct HDL Cholesterol Urine WBC (Auto) > 182.0 H 11/29/18 11/29/18 11/29/18 07:48 12:09 12:09 WBC Hgb Hct Lymph % (Auto) [place] # Seg Neutrophils % Seg Neutrophils # PT INR Chloride Carbon Dioxide BUN Glucose POC Glucose 143 H 117 H AST CK-MB (CK-2) Rel Index 7.3 H Troponin T 0.094 H NT-Pro-B Natriuret Pep Albumin LDL Cholesterol Direct HDL Cholesterol Urine WBC (Auto) 11/29/18 11/29/18 11/29/18 16:47 18:01 21:01 WBC Hgb Hct Lymph % (Auto) [place] # Seg Neutrophils % Seg Neutrophils # PT INR Chloride Carbon Dioxide BUN Glucose POC Glucose 142 H 226 H AST CK-MB (CK-2) Rel Index 6.6 H Troponin T 0.086 H NT-Pro-B Natriuret Pep Albumin LDL Cholesterol Direct 33 L HDL Cholesterol 34 L Urine WBC (Auto) 11/30/18 11/30/18 11/30/18 03:17 07:56 11:44 WBC Hgb Hct Lymph % (Auto) [place] # Seg Neutrophils % Seg Neutrophils # PT INR Chloride Carbon Dioxide BUN Glucose POC Glucose 163 H 205 H 221 H AST CK-MB (CK-2) Rel Index Troponin T NT-Pro-B Natriuret Pep Albumin LDL Cholesterol Direct HDL Cholesterol Urine WBC (Auto) 11/30/18 11/30/18 12/01/18 16:47 20:19 03:47 WBC 15.3 H Hgb Hct Lymph % (Auto) 9.6 L [place] # 1.0 H Seg Neutrophils % 83.3 H Seg Neutrophils # 12.8 H PT INR Chloride Carbon Dioxide BUN Glucose POC Glucose 196 H 218 H AST CK-MB (CK-2) Rel Index Troponin T NT-Pro-B Natriuret Pep Albumin LDL Cholesterol Direct HDL Cholesterol Urine WBC (Auto) 12/01/18 12/01/18 12/01/18 03:47 08:04 11:56 WBC Hgb Hct Lymph % (Auto) [place] # Seg Neutrophils % Seg Neutrophils # PT INR Chloride Carbon Dioxide BUN 27 H Glucose 190 H POC Glucose 212 H 310 H AST CK-MB (CK-2) Rel Index Troponin T NT-Pro-B Natriuret Pep Albumin LDL Cholesterol Direct HDL Cholesterol Urine WBC (Auto) 12/01/18 12/01/18 12/02/18 16:32 21:51 07:54 WBC Hgb Hct Lymph % (Auto) [place] # Seg Neutrophils % Seg Neutrophils # PT INR Chloride Carbon Dioxide BUN Glucose POC Glucose 278 H 158 H 175 H AST CK-MB (CK-2) Rel Index Troponin T NT-Pro-B Natriuret Pep Albumin LDL Cholesterol Direct HDL Cholesterol Urine WBC (Auto) 12/02/18 12/02/18 12/02/18 11:34 16:46 18:41 WBC Hgb Hct Lymph % (Auto) [place] # Seg Neutrophils % Seg Neutrophils # PT INR Chloride Carbon Dioxide BUN Glucose POC Glucose 271 H 178 H 248 H AST CK-MB (CK-2) Rel Index Troponin T NT-Pro-B Natriuret Pep Albumin LDL Cholesterol Direct HDL Cholesterol Urine WBC (Auto) 12/02/18 12/03/18 12/03/18 20:42 07:33 12:54 WBC Hgb Hct Lymph % (Auto) [place] # Seg Neutrophils % Seg Neutrophils # PT INR Chloride Carbon Dioxide BUN Glucose POC Glucose 212 H 141 H 228 H AST CK-MB (CK-2) Rel Index Troponin T NT-Pro-B Natriuret Pep Albumin LDL Cholesterol Direct HDL Cholesterol Urine WBC (Auto) 12/03/18 12/03/18 12/04/18 16:49 22:48 07:39 WBC Hgb Hct Lymph % (Auto) [place] # Seg Neutrophils % Seg Neutrophils # PT INR Chloride Carbon Dioxide BUN Glucose POC Glucose 207 H 217 H 155 H AST CK-MB (CK-2) Rel Index Troponin T NT-Pro-B Natriuret Pep Albumin LDL Cholesterol Direct HDL Cholesterol Urine WBC (Auto) 12/04/18 12/04/18 12/04/18 11:13 13:06 13:06 WBC Hgb Hct Lymph % (Auto) [place] # Seg Neutrophils % Seg Neutrophils # PT 15.6 H INR 1.27 H Chloride 95.2 L Carbon Dioxide 35 H D BUN 32 H Glucose 292 H POC Glucose 281 H AST CK-MB (CK-2) Rel Index Troponin T NT-Pro-B Natriuret Pep Albumin LDL Cholesterol Direct HDL Cholesterol Urine WBC (Auto) 12/04/18 12/04/18 12/05/18 15:51 20:56 07:21 WBC Hgb Hct Lymph % (Auto) [place] # Seg Neutrophils % Seg Neutrophils # PT INR Chloride Carbon Dioxide BUN Glucose POC Glucose 234 H 285 H 149 H AST CK-MB (CK-2) Rel Index Troponin T NT-Pro-B Natriuret Pep Albumin LDL Cholesterol Direct HDL Cholesterol Urine WBC (Auto) 12/05/18 12/05/18 12/05/18 12:39 16:38 20:35 WBC Hgb Hct Lymph % (Auto) [place] # Seg Neutrophils % Seg Neutrophils # PT INR Chloride Carbon Dioxide BUN Glucose POC Glucose 326 H 210 H 145 H AST CK-MB (CK-2) Rel Index Troponin T NT-Pro-B Natriuret Pep Albumin LDL Cholesterol Direct HDL Cholesterol Urine WBC (Auto) 12/06/18 12/06/18 12/06/18 08:09 11:05 12:39 WBC Hgb Hct Lymph % (Auto) [place] # Seg Neutrophils % Seg Neutrophils # PT INR Chloride 96.1 L Carbon Dioxide 35 H BUN 35 H Glucose 210 H POC Glucose 148 H 197 H AST CK-MB (CK-2) Rel Index Troponin T NT-Pro-B Natriuret Pep Albumin LDL Cholesterol Direct HDL Cholesterol Urine WBC (Auto) 12/06/18 12/06/18 12/07/18 16:59 21:12 07:26 WBC Hgb Hct Lymph % (Auto) [place] # Seg Neutrophils % Seg Neutrophils # PT INR Chloride Carbon Dioxide BUN Glucose POC Glucose 224 H 230 H 151 H AST CK-MB (CK-2) Rel Index Troponin T NT-Pro-B Natriuret Pep Albumin LDL Cholesterol Direct HDL Cholesterol Urine WBC (Auto)
[2018-12-07] MEDS ORDERED: CEPHULAC PO NR (17:07)
[2018-12-07] MEDS: MELATONIN PO SCH (21:59)
[2018-12-07] MEDS: LANTUS SUB-Q SCH (22:00)
[2018-12-07] MEDS: COZAAR PO SCH (22:02)
[2018-12-08] MEDS: NITRO-BID 2% TP SCH ×3 (05:19→15:13)
[2018-12-08] MEDS: LASIX IV SCH ×2 (05:19→17:56)
[2018-12-08] MEDS: SYNTHROID PO SCH (05:20)
[2018-12-08 05:57] LABS: Basophils # (Auto) 0.1 K/mm3 (0.0-0.1); Eosinophils # (Auto) 0.3 K/mm3 (0.0-0.4); Eosinophils % (Auto) 2.2 % (0.0-4.3); Hematocrit 37.6 % (30.3-42.9); Hemoglobin 12.6 gm/dl (10.1-14.3); Lymphocytes # (Auto) 1.4 K/mm3 (1.2-5.4); Lymphocytes % (Auto) 11.2 % (13.4-35.0); Mean Corpuscular HGB Conc 34 % (30-34); Mean Corpuscular Volume 95 fl (79-97); Monocytes # (Auto) 0.7 K/mm3 (0.0-0.8); Monocytes % (Auto) 5.4 % (0.0-7.3); Platelet Count 271 K/mm3 (140-440); Red Blood Count 3.96 M/mm3 (3.65-5.03)
[2018-12-08 06:26] LABS: Alanine Aminotransferase 59 units/L (7-56); Albumin 2.4 g/dL (3.9-5); BUN/Creatinine Ratio 48; Blood Urea Nitrogen 38 mg/dL (7-17); Calcium 9.2 mg/dL (8.4-10.2); Hemolysis Index 7
[2018-12-08] MEDS: HumuLIN R SUB-Q SCH ×4 (08:14→21:58)
[2018-12-08] MEDS: LOPRESSOR PO SCH ×2 (09:56→21:55)
[2018-12-08] MEDS: THERAGRAN Tab PO SCH (09:57)
[2018-12-08] MEDS: NORVASC PO SCH (09:57)
[2018-12-08] MEDS: ZYLOPRIM PO SCH (09:57)
[2018-12-08] MEDS: HEPARIN SUB-Q SCH ×2 (09:59→21:55)
[2018-12-08] MEDS: HALFPRIN EC PO SCH (10:00)
--- NOTE | 2018-12-08 10:49 | Progress Note ---
Assessment and Plan 83 y/o female with bilateral pleural effusion, right > left 1. Thora planned for Today. Will order labs. 2. Continue IV diuresis Subjective Date of service: 12/08/18 Principal diagnosis: pl effusion Interval history: No acute events. CXR over the weekend shows smaller effusions. Patient remains scheduled for thora today. Objective Vital Signs - 12hr 12/07/18 12/08/18 12/08/18 22:58 04:35 04:37 Temperature 98.3 F 97.8 F Pulse Rate 62 66 Respiratory 20 18 Rate Blood Pressure 115/44 Blood Pressure 98/52 [Right] O2 Sat by Pulse 98 97 Oximetry 12/08/18 12/08/18 12/08/18 05:19 08:12 09:56 Temperature 97.4 F L Pulse Rate 68 68 76 Respiratory 16 Rate Blood Pressure 117/48 141/52 133/55 Blood Pressure [Right] O2 Sat by Pulse 94 Oximetry 12/08/18 12/08/18 09:57 10:00 Temperature Pulse Rate 76 76 Respiratory Rate Blood Pressure 133/55 145/55 Blood Pressure [Right] O2 Sat by Pulse Oximetry Constitutional: alert Eyes: non-icteric ENT: oropharynx dry Neck: supple Effort: normal Ascultation: Bilateral: clear (no wheeze ), diminished breath sounds (absent bs bases ) Percussion: Bilateral: dull (bases) Cardiovascular: irregular rhythm, murmur noted (hi pitched holosys) Gastrointestinal: soft Integumentary: normal Extremities: no edema Neurologic: normal mental status CBC and BMP: 12/08/18 05:33 12/08/18 05:33 ABG, PT/INR, D-dimer: PT/INR, D-dimer PT 15.6 Sec. (12.2-14.9) H 12/04/18 13:06 INR 1.27 (0.87-1.13) H 12/04/18 13:06 Abnormal lab findings: Abnormal Labs 11/29/18 11/29/18 11/29/18 02:35 03:31 03:31 WBC 16.1 H Hgb 14.6 H Hct 44.2 H Lymph % (Auto) 9.4 L [place] # 0.9 H Seg Neutrophils % 84.2 H Seg Neutrophils # 13.6 H PT INR Chloride Carbon Dioxide BUN 30 H Glucose 147 H POC Glucose AST 51 H ALT CK-MB (CK-2) Rel Index Troponin T 0.099 H NT-Pro-B Natriuret Pep 12913 H Total Protein Albumin 3.5 L LDL Cholesterol Direct HDL Cholesterol Urine WBC (Auto) > 182.0 H 11/29/18 11/29/18 11/29/18 07:48 12:09 12:09 WBC Hgb Hct Lymph % (Auto) [place] # Seg Neutrophils % Seg Neutrophils # PT INR Chloride Carbon Dioxide BUN Glucose POC Glucose 143 H 117 H AST ALT CK-MB (CK-2) Rel Index 7.3 H Troponin T 0.094 H NT-Pro-B Natriuret Pep Total Protein Albumin LDL Cholesterol Direct HDL Cholesterol Urine WBC (Auto) 11/29/18 11/29/18 11/29/18 16:47 18:01 21:01 WBC Hgb Hct Lymph % (Auto) [place] # Seg Neutrophils % Seg Neutrophils # PT INR Chloride Carbon Dioxide BUN Glucose POC Glucose 142 H 226 H AST ALT CK-MB (CK-2) Rel Index 6.6 H Troponin T 0.086 H NT-Pro-B Natriuret Pep Total Protein Albumin LDL Cholesterol Direct 33 L HDL Cholesterol 34 L Urine WBC (Auto) 11/30/18 11/30/18 11/30/18 03:17 07:56 11:44 WBC Hgb Hct Lymph % (Auto) [place] # Seg Neutrophils % Seg Neutrophils # PT INR Chloride Carbon Dioxide BUN Glucose POC Glucose 163 H 205 H 221 H AST ALT CK-MB (CK-2) Rel Index Troponin T NT-Pro-B Natriuret Pep Total Protein Albumin LDL Cholesterol Direct HDL Cholesterol Urine WBC (Auto) 11/30/18 11/30/18 12/01/18 16:47 20:19 03:47 WBC 15.3 H Hgb Hct Lymph % (Auto) 9.6 L [place] # 1.0 H Seg Neutrophils % 83.3 H Seg Neutrophils # 12.8 H PT INR Chloride Carbon Dioxide BUN Glucose POC Glucose 196 H 218 H AST ALT CK-MB (CK-2) Rel Index Troponin T NT-Pro-B Natriuret Pep Total Protein Albumin LDL Cholesterol Direct HDL Cholesterol Urine WBC (Auto) 12/01/18 12/01/18 12/01/18 03:47 08:04 11:56 WBC Hgb Hct Lymph % (Auto) [place] # Seg Neutrophils % Seg Neutrophils # PT INR Chloride Carbon Dioxide BUN 27 H Glucose 190 H POC Glucose 212 H 310 H AST ALT CK-MB (CK-2) Rel Index Troponin T NT-Pro-B Natriuret Pep Total Protein Albumin LDL Cholesterol Direct HDL Cholesterol Urine WBC (Auto) 12/01/18 12/01/18 12/02/18 16:32 21:51 07:54 WBC Hgb Hct Lymph % (Auto) [place] # Seg Neutrophils % Seg Neutrophils # PT INR Chloride Carbon Dioxide BUN Glucose POC Glucose 278 H 158 H 175 H AST ALT CK-MB (CK-2) Rel Index Troponin T NT-Pro-B Natriuret Pep Total Protein Albumin LDL Cholesterol Direct HDL Cholesterol Urine WBC (Auto) 12/02/18 12/02/18 12/02/18 11:34 16:46 18:41 WBC Hgb Hct Lymph % (Auto) [place] # Seg Neutrophils % Seg Neutrophils # PT INR Chloride Carbon Dioxide BUN Glucose POC Glucose 271 H 178 H 248 H AST ALT CK-MB (CK-2) Rel Index Troponin T NT-Pro-B Natriuret Pep Total Protein Albumin LDL Cholesterol Direct HDL Cholesterol Urine WBC (Auto) 12/02/18 12/03/18 12/03/18 20:42 07:33 12:54 WBC Hgb Hct Lymph % (Auto) [place] # Seg Neutrophils % Seg Neutrophils # PT INR Chloride Carbon Dioxide BUN Glucose POC Glucose 212 H 141 H 228 H AST ALT CK-MB (CK-2) Rel Index Troponin T NT-Pro-B Natriuret Pep Total Protein Albumin LDL Cholesterol Direct HDL Cholesterol Urine WBC (Auto) 12/03/18 12/03/18 12/04/18 16:49 22:48 07:39 WBC Hgb Hct Lymph % (Auto) [place] # Seg Neutrophils % Seg Neutrophils # PT INR Chloride Carbon Dioxide BUN Glucose POC Glucose 207 H 217 H 155 H AST ALT CK-MB (CK-2) Rel Index Troponin T NT-Pro-B Natriuret Pep Total Protein Albumin LDL Cholesterol Direct HDL Cholesterol Urine WBC (Auto) 12/04/18 12/04/18 12/04/18 11:13 13:06 13:06 WBC Hgb Hct Lymph % (Auto) [place] # Seg Neutrophils % Seg Neutrophils # PT 15.6 H INR 1.27 H Chloride 95.2 L Carbon Dioxide 35 H D BUN 32 H Glucose 292 H POC Glucose 281 H AST ALT CK-MB (CK-2) Rel Index Troponin T NT-Pro-B Natriuret Pep Total Protein Albumin LDL Cholesterol Direct HDL Cholesterol Urine WBC (Auto) 12/04/18 12/04/18 12/05/18 15:51 20:56 07:21 WBC Hgb Hct Lymph % (Auto) [place] # Seg Neutrophils % Seg Neutrophils # PT INR Chloride Carbon Dioxide BUN Glucose POC Glucose 234 H 285 H 149 H AST ALT CK-MB (CK-2) Rel Index Troponin T NT-Pro-B Natriuret Pep Total Protein Albumin LDL Cholesterol Direct HDL Cholesterol Urine WBC (Auto) 12/05/18 12/05/18 12/05/18 12:39 16:38 20:35 WBC Hgb Hct Lymph % (Auto) [place] # Seg Neutrophils % Seg Neutrophils # PT INR Chloride Carbon Dioxide BUN Glucose POC Glucose 326 H 210 H 145 H AST ALT CK-MB (CK-2) Rel Index Troponin T NT-Pro-B Natriuret Pep Total Protein Albumin LDL Cholesterol Direct HDL Cholesterol Urine WBC (Auto) 12/06/18 12/06/18 12/06/18 08:09 11:05 12:39 WBC Hgb Hct Lymph % (Auto) [place] # Seg Neutrophils % Seg Neutrophils # PT INR Chloride 96.1 L Carbon Dioxide 35 H BUN 35 H Glucose 210 H POC Glucose 148 H 197 H AST ALT CK-MB (CK-2) Rel Index Troponin T NT-Pro-B Natriuret Pep Total Protein Albumin LDL Cholesterol Direct HDL Cholesterol Urine WBC (Auto) 12/06/18 12/06/18 12/07/18 16:59 21:12 07:26 WBC Hgb Hct Lymph % (Auto) [place] # Seg Neutrophils % Seg Neutrophils # PT INR Chloride Carbon Dioxide BUN Glucose POC Glucose 224 H 230 H 151 H AST ALT CK-MB (CK-2) Rel Index Troponin T NT-Pro-B Natriuret Pep Total Protein Albumin LDL Cholesterol Direct HDL Cholesterol Urine WBC (Auto) 12/07/18 12/07/18 12/07/18 12:07 16:03 21:30 WBC Hgb Hct Lymph % (Auto) [place] # Seg Neutrophils % Seg Neutrophils # PT INR Chloride Carbon Dioxide BUN Glucose POC Glucose 275 H 270 H 224 H AST ALT CK-MB (CK-2) Rel Index Troponin T NT-Pro-B Natriuret Pep Total Protein Albumin LDL Cholesterol Direct HDL Cholesterol Urine WBC (Auto) 12/08/18 12/08/18 12/08/18 05:33 05:33 08:32 WBC 12.0 H Hgb Hct Lymph % (Auto) 11.2 L [place] # Seg Neutrophils % 80.2 H Seg Neutrophils # 9.6 H PT INR Chloride 97.5 L Carbon Dioxide 36 H BUN 38 H Glucose 151 H POC Glucose 147 H AST 67 H ALT 59 H CK-MB (CK-2) Rel Index Troponin T NT-Pro-B Natriuret Pep Total Protein 5.8 L Albumin 2.4 L LDL Cholesterol Direct HDL Cholesterol Urine WBC (Auto)
--- NOTE | 2018-12-08 11:27 | Progress Note ---
Assessment and Plan Pleural effusion Congestive heart failure Mitral valve disease, rheumatic Bilateral pleural effusion may be likely due to heart failure An echocardiogram done during this admission shows a calcified mitral valve with at least moderate mitral stenosis, mean transmitral gradient of 10. In addition, there was severe mitral regurgitation. Left ventricle systolic function well- preserved, ejection fraction 50-55%. There was moderate pulmonary hypertension with a pulmonary artery systolic pressure of 44. Recommendation: Continue medical therapy with diuretics, afterload agents, spironolactone and blood pressure management as indicated. For consideration of a right and left heart catheterization for further evaluation of valvular disease and coronary disease once heart failure and pleural effusion is resolved. Subjective Date of service: 12/08/18 Principal diagnosis: pl effusion Interval history: No cardiac events. For planned thoracentesis today. Objective Vital Signs Temp Pulse Resp BP BP Pulse Ox 12/08/18 10:00 76 145/55 96 12/08/18 09:57 76 133/55 12/08/18 09:56 76 133/55 12/08/18 08:12 97.4 F L 68 16 141/52 94 12/08/18 05:19 68 117/48 12/08/18 04:37 97.8 F 12/08/18 04:35 66 18 115/44 97 12/07/18 22:58 98.3 F 62 20 98/52 98 12/07/18 22:02 78 124/54 12/07/18 22:00 75 94 12/07/18 21:59 78 124/54 12/07/18 20:48 22 97 12/07/18 19:56 98.5 F 12/07/18 19:55 74 20 124/54 91 12/07/18 16:55 98.2 F 74 18 118/48 94 12/07/18 11:49 97.8 F 70 18 109/46 93 - Physical Examination General: No Apparent Distress HEENT: Positive: PERRL Neck: Positive: trachea midline Cardiac: Positive: Other (paced) Lungs: Positive: Decreased Breath Sounds Neuro: Positive: Grossly Intact Abdomen: Positive: Soft Extremities: Absent: edema - Labs and Meds Cardiac Enzymes 12/08/18 Range/Units 05:33 AST 67 H (5-40) units/L CBC 12/08/18 Range/Units 05:33 WBC 12.0 H (4.5-11.0) K/mm3 RBC 3.96 (3.65-5.03) M/mm3 Hgb 12.6 (10.1-14.3) gm/dl Hct 37.6 (30.3-42.9) % Plt Count 271 (140-440) K/mm3 Lymph # 1.4 (1.2-5.4) K/mm3 [place] # 0.7 (0.0-0.8) K/mm3 [place] # 0.3 (0.0-0.4) K/mm3 Baso # 0.1 (0.0-0.1) K/mm3 Comprehensive Metabolic Panel 12/08/18 Range/Units 05:33 Sodium 141 (137-145) mmol/L Potassium 3.9 (3.6-5.0) mmol/L Chloride 97.5 L (98-107) mmol/L Carbon Dioxide 36 H (22-30) mmol/L BUN 38 H (7-17) mg/dL Creatinine 0.8 (0.7-1.2) mg/dL Glucose 151 H (65-100) mg/dL Calcium 9.2 (8.4-10.2) mg/dL AST 67 H (5-40) units/L ALT 59 H (7-56) units/L Alkaline Phosphatase 74 (35-129) units/L Total Protein 5.8 L (6.3-8.2) g/dL Albumin 2.4 L (3.9-5) g/dL
--- NOTE | 2018-12-08 13:58 | Procedure Note ---
Date of procedure: 12/08/18 Pre-op diagnosis: right pleural effusion Post-op diagnosis: same Procedure: US thoracentesis, right Findings: moderate right pleural fluid Anesthesia: local Surgeon: SALUD MENDOZA Estimated blood loss: none Pathology: list (120cc) Specimen disposition: to lab Condition: stable Disposition: floor
--- NOTE | 2018-12-08 14:50 | Ultrasound Report ---
Ultrasound-guided thoracentesis HISTORY: right side plueral effusion. COMPARISON: None PROCEDURE: The risks (including but not limited to bleeding, infection, and pneumothorax) and benefi ts were explained to the patient and informed consent was obtained. A time out procedure was perform ed. Ultrasound was used to evaluate the right pleural effusion and locate the optimal site for needle ent ry. Once the skin was marked, the procedure site was prepped and draped in the usual sterile fashion and lidocaine was used for local anesthesia. A skin monica was made and a 6-[place]iber[place] thoracentesis cath eter was placed. The patient was monitored closely throughout the procedure, and a total of 1100 mL of clear yellow fluid was aspirated. Samples were sent to the lab for further evaluation per the [facility] orders. The patient tolerated the procedure well with no complications. A post-procedure chest x-ray was imm ediately ordered. IMPRESSION: Successful ultrasound-guided thoracentesis. Signer Name: Keyur Woodson Jr, MD Signed: 12/08/2018 2:46 PM Workstation Name: [id number]
--- NOTE | 2018-12-08 15:11 | XRay Report ---
CHEST 1 VIEW INDICATION: sob, right pleural effusion, recent thora. COMPARISON: 12/05/2018 FINDINGS: Support devices: 2-lead pacemaker device is in position. Heart: Within normal limits. Lungs/Pleura: Mild pulmonary venous congestion is noted bilaterally. Complete evacuation of the right pleural effusion is demonstrated. A small left pleural effusion persists. No pneumothorax. Additional findings: None. IMPRESSION: Complete evacuation of the right pleural fluid. No pneumothorax. Signer Name: Keyur Woodson Jr, MD Signed: 12/08/2018 3:06 PM Workstation Name: [id number]
--- NOTE | 2018-12-08 16:16 | Progress Note ---
Assessment and Plan 83-year-old woman with history of hypertension, gout, CVA, hypercholesterolemia, chronic respiratory failure on home oxygen who presented to the hospital with shortness of breath. Patient has a history of COPD and CHF Pleural effusion appear to be due to CHF, pulmonary consult requested per cardiology request CHF exacerbation, diastolic cardiology input appreciated, diuresis An echocardiogram done during this admission shows a calcified mitral valve with at least moderate mitral stenosis, mean transmitral gradient of 10. In addition, there was severe mitral regurgitation. Left ventricle systolic function well- preserved, ejection fraction 50-55%. There was moderate pulmonary hypertension with a pulmonary artery systolic pressure of 44. Recommendation: Continue medical therapy with diuretics, afterload agents, spironolactone and blood pressure management as indicated. For consideration of a right and left heart catheterization for further evaluation of valvular disease and coronary disease once heart failure and pleural effusion is resolved. 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, this is likely a large contributing factor to her CHF., Patient will likely benefit from cardiac have when heart failure symptoms ultimately resolved The patient's may ultimately benefit from mitral valve replacement, however surgical management may be contraindicated given patient's advanced age and overall poor clinical status and dementia, cardiology input appreciated Acute on chronic hypoxic respiratory failure Continue oxygen supplement Dementia, Supportive care DVT prophylaxis with Lovenox Subjective Date of service: 12/08/18 Principal diagnosis: pl effusion Interval history: 83-year-old woman with history of hypertension, gout, CVA, hypercholesterolemia, chronic respiratory failure on home oxygen who presented to the hospital with shortness of breath. Patient has a history of COPD and CHF. and MV disease. Symptomatically better Objective - Constitutional Vitals: Vital Signs - 12hr 12/08/18 12/08/18 12/08/18 04:35 04:37 05:19 Temperature 97.8 F Pulse Rate 66 68 Pulse Rate [ Apical] Pulse Rate [ Left Radial] Pulse Rate [ Right Radial] Respiratory 18 Rate Blood Pressure 115/44 117/48 O2 Sat by Pulse 97 Oximetry 12/08/18 12/08/18 12/08/18 08:12 09:55 09:56 Temperature 97.4 F L Pulse Rate 68 75 76 Pulse Rate [ Apical] Pulse Rate [ Left Radial] Pulse Rate [ Right Radial] Respiratory 16 Rate Blood Pressure 141/52 143/55 133/55 O2 Sat by Pulse 94 95 Oximetry 12/08/18 12/08/18 09:57 10:00 Temperature Pulse Rate 76 60 Pulse Rate [ 76 Apical] Pulse Rate [ 76 Left Radial] Pulse Rate [ 76 Right Radial] Respiratory Rate Blood Pressure 133/55 145/55 O2 Sat by Pulse 96 Oximetry General appearance: Present: no acute distress, well-nourished - EENT Eyes: PERRL, EOM intact ENT: hearing intact, clear oral mucosa Ears: bilateral: normal - Neck Neck: supple, normal ROM - Respiratory Respiratory effort: normal Respiratory: bilateral: CTA - Breasts Breasts: normal - Cardiovascular Heart rate: 78 Rhythm: regular Heart Sounds: Present: S1 & S2, systolic murmur (In Mitral area). Absent: gal lop, rub Extremities: no ischemia, pulses intact, No edema, normal color, Full ROM - Gastrointestinal General gastrointestinal: Present: soft, non-tender, non-distended, normal bowel sounds - Genitourinary Female genitourinary: normal - Integumentary Integumentary: clear, warm, dry - Musculoskeletal Musculoskeletal: 1, strength equal bilaterally - Neurologic Neurologic: moves all extremities - Psychiatric Psychiatric: memory intact, appropriate mood/affect, intact judgment & insight - Labs CBC & Chem 7: 12/08/18 05:33 12/08/18 05:33 Labs: Abnormal lab results 12/07/18 12/08/18 12/08/18 Range/Units 21:30 05:33 05:33 WBC 12.0 H (4.5-11.0) K/mm3 Lymph % (Auto) 11.2 L (13.4-35.0) % Seg Neutrophils % 80.2 H (40.0-70.0) % Seg Neutrophils # 9.6 H (1.8-7.7) K/mm3 Chlor[place] 97.5 L (98-107) mmol/L Carbon Dioxide 36 H (22-30) mmol/L BUN 38 H (7-17) mg/dL Glucose 151 H (65-100) mg/dL POC Glucose 224 H (70-105) AST 67 H (5-40) units/L ALT 59 H (7-56) units/L Total Protein 5.8 L (6.3-8.2) g/dL Albumin 2.4 L (3.9-5) g/dL 12/08/18 Range/Units 08:32 WBC (4.5-11.0) K/mm3 Lymph % (Auto) (13.4-35.0) % Seg Neutrophils % (40.0-70.0) % Seg Neutrophils # (1.8-7.7) K/mm3 Ch[place] (98-107) mmol/L Carbon Dioxide (22-30) mmol/L BUN (7-17) mg/dL Glucose (65-100) mg/dL POC Glucose 147 H (70-105) AST (5-40) units/L ALT (7-56) units/L Total Protein (6.3-8.2) g/dL Albumin (3.9-5) g/dL
[2018-12-08 21:29] LABS: Total Cells Counted 100 /mm3
[2018-12-08] MEDS: MELATONIN PO SCH (21:55)
[2018-12-08] MEDS: TYLENOL PO PRN (21:56)
[2018-12-08] MEDS: LANTUS SUB-Q SCH (21:57)
[2018-12-08] MEDS: COZAAR PO SCH (21:59)
[2018-12-09] MEDS: LASIX IV SCH ×2 (06:09→17:37)
[2018-12-09] MEDS: SYNTHROID PO SCH (06:10)
[2018-12-09] MEDS: NITRO-BID 2% TP SCH ×3 (06:10→17:37)
[2018-12-09] MEDS: HumuLIN R SUB-Q SCH ×4 (08:00→21:24)
--- NOTE | 2018-12-09 09:17 | Progress Note ---
Assessment and Plan Pleural effusion Congestive heart failure Mitral valve disease, rheumatic Bilateral pleural effusion may be likely due to heart failure An echocardiogram done during this admission shows a calcified mitral valve with at least moderate mitral stenosis, mean transmitral gradient of 10. In addition, there was severe mitral regurgitation. Left ventricle systolic function well- preserved, ejection fraction 50-55%. There was moderate pulmonary hypertension with a pulmonary artery systolic pressure of 44. Recommendation: Continue medical therapy with diuretics, afterload agents, spironolactone and blood pressure management as indicated. We will plan for a right and left heart catheterization for further evaluation of valvular disease and coronary disease on . Subjective Date of service: 12/09/18 Principal diagnosis: pl effusion Interval history: Patient is resting in comfortably. No cardiac events. No distress noted. Objective Vital Signs Temp Pulse Pulse Pulse Pulse Resp BP 12/09/18 08:14 97.9 F 64 18 124/49 12/09/18 07:58 12/09/18 06:10 70 123/54 12/09/18 04:05 97.7 F 68 20 123/54 12/08/18 23:42 97.7 F 60 20 109/43 12/08/18 22:00 72 12/08/18 21:59 72 122/50 12/08/18 21:56 20 12/08/18 21:55 72 122/50 12/08/18 21:32 12/08/18 20:30 18 12/08/18 19:36 98.3 F 68 20 126/40 12/08/18 19:02 65 12/08/18 17:06 98.5 F 72 18 122/47 12/08/18 12:00 66 12/08/18 10:00 60 68 68 68 19 145/55 12/08/18 09:57 76 133/55 12/08/18 09:56 76 133/55 12/08/18 09:55 75 143/55 Pulse Ox 12/09/18 08:14 97 12/09/18 07:58 97 12/09/18 06:10 12/09/18 04:05 94 12/08/18 23:42 97 12/08/18 22:00 12/08/18 21:59 12/08/18 21:56 12/08/18 21:55 12/08/18 21:32 98 12/08/18 20:30 98 12/08/18 19:36 97 12/08/18 19:02 12/08/18 17:06 99 12/08/18 12:00 12/08/18 10:00 98 12/08/18 09:57 12/08/18 09:56 12/08/18 09:55 95 - Physical Examination General: No Apparent Distress HEENT: Positive: PERRL Neck: Positive: trachea midline Cardiac: Positive: Other (paced) Lungs: Positive: Decreased Breath Sounds Neuro: Positive: Grossly Intact Abdomen: Positive: Soft Extremities: Absent: edema
[2018-12-09] MEDS: HALFPRIN EC PO SCH (09:31)
[2018-12-09] MEDS: ZYLOPRIM PO SCH (09:31)
[2018-12-09] MEDS: LOPRESSOR PO SCH ×2 (09:31→21:23)
[2018-12-09] MEDS: THERAGRAN Tab PO SCH (09:31)
[2018-12-09] MEDS: NORVASC PO SCH ×2 (09:32→09:51)
[2018-12-09] MEDS: HEPARIN SUB-Q SCH ×2 (09:33→21:23)
--- NOTE | 2018-12-09 12:44 | Progress Note ---
Assessment and Plan 83 y/o female with bilateral pleural effusion, right > left 1. Most likely these effusions are related to CHF and if a net negative base is not able to be met and kept, fluid will return. The LDH and protein to determine if this is at transudate or exudate are sendouts and will not be back til later in the week. The patient should not have to remain in the hospital for these results. If cards wishes to persue cath, pulm novak no objection. If patient cannot lie flat, could tap the other side to assist with this, but as stated earlier, if net negative state cannot be achieved and kept, fluid will return. Subjective Date of service: 12/09/18 Principal diagnosis: pl effusion Interval history: No acute events. 1100 cc's drawn off on yesterday. Stable. Cell count is normal but other labs requested are sendouts at this hospital. Objective Vital Signs - 12hr 12/09/18 12/09/18 12/09/18 04:05 06:10 07:58 Temperature 97.7 F Pulse Rate 68 70 Pulse Rate [ Apical] Pulse Rate [ Left Radial] Pulse Rate [ Right Radial] Respiratory 20 Rate Blood Pressure 123/54 123/54 O2 Sat by Pulse 94 97 Oximetry 12/09/18 12/09/18 12/09/18 08:14 09:31 09:51 Temperature 97.9 F Pulse Rate 64 68 68 Pulse Rate [ Apical] Pulse Rate [ Left Radial] Pulse Rate [ Right Radial] Respiratory 18 Rate Blood Pressure 124/49 134/46 124/46 O2 Sat by Pulse 97 Oximetry 12/09/18 10:00 Temperature Pulse Rate 60 Pulse Rate [ 60 Apical] Pulse Rate [ 68 Left Radial] Pulse Rate [ 60 Right Radial] Respiratory 18 Rate Blood Pressure O2 Sat by Pulse 98 Oximetry Constitutional: alert Eyes: non-icteric ENT: oropharynx dry Neck: supple Effort: normal Ascultation: Bilateral: clear (no wheeze ), diminished breath sounds (absent bs bases ) Percussion: Bilateral: dull (bases) Cardiovascular: irregular rhythm, murmur noted (hi pitched holosys) Gastrointestinal: soft Integumentary: normal Extremities: no edema Neurologic: normal mental status CBC and BMP: 12/08/18 05:33 12/08/18 05:33 ABG, PT/INR, D-dimer: PT/INR, D-dimer PT 15.6 Sec. (12.2-14.9) H 12/04/18 13:06 INR 1.27 (0.87-1.13) H 12/04/18 13:06 Abnormal lab findings: Abnormal Labs 11/29/18 11/29/18 11/29/18 02:35 03:31 03:31 WBC 16.1 H Hgb 14.6 H Hct 44.2 H Lymph % (Auto) 9.4 L [place] # 0.9 H Seg Neutrophils % 84.2 H Seg Neutrophils # 13.6 H PT INR Chloride Carbon Dioxide BUN 30 H Glucose 147 H POC Glucose AST 51 H ALT CK-MB (CK-2) Rel Index Troponin T 0.099 H NT-Pro-B Natriuret Pep 02641 H Total Protein Albumin 3.5 L LDL Cholesterol Direct HDL Cholesterol Urine WBC (Auto) > 182.0 H 11/29/18 11/29/18 11/29/18 07:48 12:09 12:09 WBC Hgb Hct Lymph % (Auto) [place] # Seg Neutrophils % Seg Neutrophils # PT INR Chloride Carbon Dioxide BUN Glucose POC Glucose 143 H 117 H AST ALT CK-MB (CK-2) Rel Index 7.3 H Troponin T 0.094 H NT-Pro-B Natriuret Pep Total Protein Albumin LDL Cholesterol Direct HDL Cholesterol Urine WBC (Auto) 11/29/18 11/29/18 11/29/18 16:47 18:01 21:01 WBC Hgb Hct Lymph % (Auto) [place] # Seg Neutrophils % Seg Neutrophils # PT INR Chloride Carbon Dioxide BUN Glucose POC Glucose 142 H 226 H AST ALT CK-MB (CK-2) Rel Index 6.6 H Troponin T 0.086 H NT-Pro-B Natriuret Pep Total Protein Albumin LDL Cholesterol Direct 33 L HDL Cholesterol 34 L Urine WBC (Auto) 11/30/18 11/30/18 11/30/18 03:17 07:56 11:44 WBC Hgb Hct Lymph % (Auto) [place] # Seg Neutrophils % Seg Neutrophils # PT INR Chloride Carbon Dioxide BUN Glucose POC Glucose 163 H 205 H 221 H AST ALT CK-MB (CK-2) Rel Index Troponin T NT-Pro-B Natriuret Pep Total Protein Albumin LDL Cholesterol Direct HDL Cholesterol Urine WBC (Auto) 11/30/18 11/30/18 12/01/18 16:47 20:19 03:47 WBC 15.3 H Hgb Hct Lymph % (Auto) 9.6 L [place] # 1.0 H Seg Neutrophils % 83.3 H Seg Neutrophils # 12.8 H PT INR Chloride Carbon Dioxide BUN Glucose POC Glucose 196 H 218 H AST ALT CK-MB (CK-2) Rel Index Troponin T NT-Pro-B Natriuret Pep Total Protein Albumin LDL Cholesterol Direct HDL Cholesterol Urine WBC (Auto) 12/01/18 12/01/18 12/01/18 03:47 08:04 11:56 WBC Hgb Hct Lymph % (Auto) [place] # Seg Neutrophils % Seg Neutrophils # PT INR Chloride Carbon Dioxide BUN 27 H Glucose 190 H POC Glucose 212 H 310 H AST ALT CK-MB (CK-2) Rel Index Troponin T NT-Pro-B Natriuret Pep Total Protein Albumin LDL Cholesterol Direct HDL Cholesterol Urine WBC (Auto) 12/01/18 12/01/18 12/02/18 16:32 21:51 07:54 WBC Hgb Hct Lymph % (Auto) [place] # Seg Neutrophils % Seg Neutrophils # PT INR Chloride Carbon Dioxide BUN Glucose POC Glucose 278 H 158 H 175 H AST ALT CK-MB (CK-2) Rel Index Troponin T NT-Pro-B Natriuret Pep Total Protein Albumin LDL Cholesterol Direct HDL Cholesterol Urine WBC (Auto) 12/02/18 12/02/18 12/02/18 11:34 16:46 18:41 WBC Hgb Hct Lymph % (Auto) [place] # Seg Neutrophils % Seg Neutrophils # PT INR Chloride Carbon Dioxide BUN Glucose POC Glucose 271 H 178 H 248 H AST ALT CK-MB (CK-2) Rel Index Troponin T NT-Pro-B Natriuret Pep Total Protein Albumin LDL Cholesterol Direct HDL Cholesterol Urine WBC (Auto) 12/02/18 12/03/18 12/03/18 20:42 07:33 12:54 WBC Hgb Hct Lymph % (Auto) [place] # Seg Neutrophils % Seg Neutrophils # PT INR Chloride Carbon Dioxide BUN Glucose POC Glucose 212 H 141 H 228 H AST ALT CK-MB (CK-2) Rel Index Troponin T NT-Pro-B Natriuret Pep Total Protein Albumin LDL Cholesterol Direct HDL Cholesterol Urine WBC (Auto) 12/03/18 12/03/18 12/04/18 16:49 22:48 07:39 WBC Hgb Hct Lymph % (Auto) [place] # Seg Neutrophils % Seg Neutrophils # PT INR Chloride Carbon Dioxide BUN Glucose POC Glucose 207 H 217 H 155 H AST ALT CK-MB (CK-2) Rel Index Troponin T NT-Pro-B Natriuret Pep Total Protein Albumin LDL Cholesterol Direct HDL Cholesterol Urine WBC (Auto) 12/04/18 12/04/18 12/04/18 11:13 13:06 13:06 WBC Hgb Hct Lymph % (Auto) [place] # Seg Neutrophils % Seg Neutrophils # PT 15.6 H INR 1.27 H Chloride 95.2 L Carbon Dioxide 35 H D BUN 32 H Glucose 292 H POC Glucose 281 H AST ALT CK-MB (CK-2) Rel Index Troponin T NT-Pro-B Natriuret Pep Total Protein Albumin LDL Cholesterol Direct HDL Cholesterol Urine WBC (Auto) 12/04/18 12/04/18 12/05/18 15:51 20:56 07:21 WBC Hgb Hct Lymph % (Auto) [place] # Seg Neutrophils % Seg Neutrophils # PT INR Chloride Carbon Dioxide BUN Glucose POC Glucose 234 H 285 H 149 H AST ALT CK-MB (CK-2) Rel Index Troponin T NT-Pro-B Natriuret Pep Total Protein Albumin LDL Cholesterol Direct HDL Cholesterol Urine WBC (Auto) 12/05/18 12/05/18 12/05/18 12:39 16:38 20:35 WBC Hgb Hct Lymph % (Auto) [place] # Seg Neutrophils % Seg Neutrophils # PT INR Chloride Carbon Dioxide BUN Glucose POC Glucose 326 H 210 H 145 H AST ALT CK-MB (CK-2) Rel Index Troponin T NT-Pro-B Natriuret Pep Total Protein Albumin LDL Cholesterol Direct HDL Cholesterol Urine WBC (Auto) 12/06/18 12/06/18 12/06/18 08:09 11:05 12:39 WBC Hgb Hct Lymph % (Auto) [place] # Seg Neutrophils % Seg Neutrophils # PT INR Chloride 96.1 L Carbon Dioxide 35 H BUN 35 H Glucose 210 H POC Glucose 148 H 197 H AST ALT CK-MB (CK-2) Rel Index Troponin T NT-Pro-B Natriuret Pep Total Protein Albumin LDL Cholesterol Direct HDL Cholesterol Urine WBC (Auto) 12/06/18 12/06/18 12/07/18 16:59 21:12 07:26 WBC Hgb Hct Lymph % (Auto) [place] # Seg Neutrophils % Seg Neutrophils # PT INR Chloride Carbon Dioxide BUN Glucose POC Glucose 224 H 230 H 151 H AST ALT CK-MB (CK-2) Rel Index Troponin T NT-Pro-B Natriuret Pep Total Protein Albumin LDL Cholesterol Direct HDL Cholesterol Urine WBC (Auto) 12/07/18 12/07/18 12/07/18 12:07 16:03 21:30 WBC Hgb Hct Lymph % (Auto) [place] # Seg Neutrophils % Seg Neutrophils # PT INR Chloride Carbon Dioxide BUN Glucose POC Glucose 275 H 270 H 224 H AST ALT CK-MB (CK-2) Rel Index Troponin T NT-Pro-B Natriuret Pep Total Protein Albumin LDL Cholesterol Direct HDL Cholesterol Urine WBC (Auto) 12/08/18 12/08/18 12/08/18 05:33 05:33 08:32 WBC 12.0 H Hgb Hct Lymph % (Auto) 11.2 L [place] # Seg Neutrophils % 80.2 H Seg Neutrophils # 9.6 H PT INR Chloride 97.5 L Carbon Dioxide 36 H BUN 38 H Glucose 151 H POC Glucose 147 H AST 67 H ALT 59 H CK-MB (CK-2) Rel Index Troponin T NT-Pro-B Natriuret Pep Total Protein 5.8 L Albumin 2.4 L LDL Cholesterol Direct HDL Cholesterol Urine WBC (Auto) 12/08/18 12/08/18 12/09/18 17:40 21:14 08:28 WBC Hgb Hct Lymph % (Auto) [place] # Seg Neutrophils % Seg Neutrophils # PT INR Chloride Carbon Dioxide BUN Glucose POC Glucose 196 H 236 H 170 H AST ALT CK-MB (CK-2) Rel Index Troponin T NT-Pro-B Natriuret Pep Total Protein Albumin LDL Cholesterol Direct HDL Cholesterol Urine WBC (Auto) 12/09/18 11:23 WBC Hgb Hct Lymph % (Auto) [place] # Seg Neutrophils % Seg Neutrophils # PT INR Chloride Carbon Dioxide BUN Glucose POC Glucose 147 H AST ALT CK-MB (CK-2) Rel Index Troponin T NT-Pro-B Natriuret Pep Total Protein Albumin LDL Cholesterol Direct HDL Cholesterol Urine WBC (Auto)
[2018-12-09] MEDS ORDERED: NORVASC PO SCH (12:59)
--- NOTE | 2018-12-09 13:25 | Progress Note ---
Assessment and Plan Assessment and plan: Bilateral Pleural effusion -appears to be due to CHF -Status post US-guided thoracentesis with 1100 mls of pleural fluid drained, analysis pending -Pulmonology following Acute diastolic HF exacerbation -Continue IV diuretics, Lopressor -echocardiogram done during this admission shows a calcified mitral valve with at least moderate mitral stenosis, mean transmitral gradient of 10. In addition, there was severe mitral regurgitation. Left ventricle systolic function well- preserved, ejection fraction 50-55%. There was moderate pulmonary hypertension with a pulmonary artery systolic pressure of 44. -Cardiology following Moderate mitral valve stenosis, rheumatic -For consideration of a right and left heart catheterization for further evaluation of valvular disease and coronary disease once heart failure and pleural effusion is resolved per Cardiology. 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 She reports feeling better. She denies chest pain or shortness of breath. Hospitalist Physical - Constitutional Vitals: Temp Pulse Resp BP Pulse Ox 97.9 F 67 18 124/46 98 12/09/18 08:14 12/09/18 12:56 12/09/18 10:00 12/09/18 12:56 12/09/18 10:00 General appearance: Present: no acute distress, well-nourished - EENT Eyes: Present: PERRL, EOM intact ENT: hearing intact, clear oral mucosa - Neck Neck: Present: supple - Respiratory Respiratory effort: normal Respiratory: bilateral: diminished - Cardiovascular Rhythm: regular Heart Sounds: Present: S1 & S2 - Extremities Extremities: No edema - Abdominal General gastrointestinal: soft, non-tender, normal bowel sounds - Integumentary Integumentary: Present: clear, warm, dry - Psychiatric Psychiatric: appropriate mood/affect - Neurologic Neurologic: CNII-XII intact Results - Labs CBC & Chem 7: 12/08/18 05:33 12/08/18 05:33 Labs: Laboratory Last Values WBC 12.0 K/mm3 (4.5-11.0) H 12/08/18 05:33 RBC 3.96 M/mm3 (3.65-5.03) 12/08/18 05:33 Hgb 12.6 gm/dl (10.1-14.3) 12/08/18 05:33 Hct 37.6 % (30.3-42.9) 12/08/18 05:33 MCV 95 fl (79-97) 12/08/18 05:33 MCH 32 pg (28-32) 12/08/18 05:33 MCHC 34 % (30-34) 12/08/18 05:33 RDW 15.0 % (13.2-15.2) 12/08/18 05:33 Plt Count 271 K/mm3 (140-440) 12/08/18 05:33 Lymph % (Auto) 11.2 % (13.4-35.0) L 12/08/18 05:33 [place] % (Auto) 5.4 % (0.0-7.3) 12/08/18 05:33 Eos % (Auto) 2.2 % (0.0-4.3) 12/08/18 05:33 Baso % (Auto) 1.0 % (0.0-1.8) 12/08/18 05:33 Lymph # 1.4 K/mm3 (1.2-5.4) 12/08/18 05:33 [place] # 0.7 K/mm3 (0.0-0.8) 12/08/18 05:33 Eos # 0.3 K/mm3 (0.0-0.4) 12/08/18 05:33 Baso # 0.1 K/mm3 (0.0-0.1) 12/08/18 05:33 Seg Neutrophils % 80.2 % (40.0-70.0) H 12/08/18 05:33 Seg Neutrophils # 9.6 K/mm3 (1.8-7.7) H 12/08/18 05:33 PT 15.6 Sec. (12.2-14.9) H 12/04/18 13:06 INR 1.27 (0.87-1.13) H 12/04/18 13:06 Sodium 141 mmol/L (137-145) 12/08/18 05:33 Potassium 3.9 mmol/L (3.6-5.0) 12/08/18 05:33 Chloride 97.5 mmol/L (98-107) L 12/08/18 05:33 Carbon Dioxide 36 mmol/L (22-30) H 12/08/18 05:33 11 mmol/L 12/08/18 05:33 BUN 38 mg/dL (7-17) H 12/08/18 05:33 0.8 mg/dL (0.7-1.2) 12/08/18 05:33 Estimated GFR > 60 ml/min 12/08/18 05:33 48 % 12/08/18 05:33 Glucose 151 mg/dL (65-100) H 12/08/18 05:33 POC Glucose 147 (70-105) H 12/09/18 11:23 Lactic Acid 1.10 mmol/L (0.7-2.0) 11/29/18 05:21 Calcium 9.2 mg/dL (8.4-10.2) 12/08/18 05:33 0.40 mg/dL (0.1-1.2) 12/08/18 05:33 AST 67 units/L (5-40) H 12/08/18 05:33 ALT 59 units/L (7-56) H 12/08/18 05:33 74 units/L (35-129) 12/08/18 05:33 54 units/L (30-135) 11/29/18 18:01 CK-MB (CK-2) 3.6 ng/mL (0.0-4.0) 11/29/18 18:01 CK-MB (CK-2) Rel Index 6.6 (0-4) H 11/29/18 18:01 0.086 ng/mL (0.00-0.029) H 11/29/18 18:01 NT-Pro-B Natriuret Pep 82409 pg/mL (0-900) H 11/29/18 03:31 5.8 g/dL (6.3-8.2) L 12/08/18 05:33 2.4 g/dL (3.9-5) L 12/08/18 05:33 0.7 % 12/08/18 05:33 Triglycerides 107 mg/dL (2-149) 11/29/18 18:01 Cholesterol 80 mg/dL (50-199) 11/29/18 18:01 33 mg/dL (50-130) L 11/29/18 18:01 34 mg/dL (40-59) L 11/29/18 18:01 2.35 % 11/29/18 18:01 Yellow (Yellow) 11/29/18 02:35 Turbid (Clear) 11/29/18 02:35 5.0 (5.0-7.0) 11/29/18 02:35 Ur Specific [place] 1.018 (1.003-1.030) 11/29/18 02:35 30 mg/dl mg/dL (Negative) 11/29/18 02:35 Neg mg/dL (Negative) 11/29/18 02:35 Neg mg/dL (Negative) 11/29/18 02:35 Neg (Negative) 11/29/18 02:35 Neg (Negative) 11/29/18 02:35 Neg (Negative) 11/29/18 02:35 < 2.0 mg/dL (<2.0) 11/29/18 02:35 Ur Leukocyte Esterase Mod (Negative) 11/29/18 02:35 > 182.0 /HPF (0.0-6.0) H 11/29/18 02:35 33.0 /HPF (0.0-6.0) 11/29/18 02:35 U Epithel Cells (Auto) 1.0 /HPF (0-13.0) 11/29/18 02:35 1+ /HPF (Negative) 11/29/18 02:35 3+ /HPF 11/29/18 02:35 Few /HPF 11/29/18 02:35 Fluid Type Pleural 12/08/18 01:00 Fluid Color Yellow 12/08/18 01:00 Fluid Appearance Clear 12/08/18 01:00 Fluid WBC 145 /mm3 12/08/18 01:00 Fluid RBC 1800 /mm3 12/08/18 01:00 Fluid Seg Neutrophils 16.0 % 12/08/18 01:00 Fluid Lymphocytes 59.0 % 12/08/18 01:00 Fluid Reactive Lymphs 0 % 12/08/18 01:00 Fluid Monocytes 25.0 % 12/08/18 01:00 Fluid Eosinophils 0 % 12/08/18 01:00 Fluid Basophils 0 % 12/08/18 01:00 Active Medications - Current Medications Current Medications: Generic Name Dose Route Start Last Admin Trade Name Freq PRN Reason Stop Dose Admin Acetaminophen 650 mg 11/29/18 06:22 12/08/18 21:56 Tylenol PO 650 mg Q4H PRN Administration Fever >101 Allopurinol 300 mg 11/29/18 10:00 12/09/18 09:31 Zyloprim PO 300 mg QDAY DEEPTI Administration Amlodipine Besylate 5 mg 12/09/18 12:59 Norvasc PO QDAY DEEPTI Aspirin 81 mg 11/29/18 10:00 12/09/18 09:31 Halfprin Ec PO 81 mg QDAY DEEPTI Administration Atorvastatin Calcium 40 mg 11/29/18 22:00 12/08/18 21:55 Lipitor PO 40 mg QHS DEEPTI Administration Dextrose 50 ml 11/29/18 06:15 D50w (25gm) Syringe IV PRN PRN Hypoglycemia Furosemide 40 mg 11/30/18 18:00 12/09/18 06:09 Lasix IV 40 mg 0600,1800 [facility] Administration Heparin Sodium (Porcine) 5,000 unit 11/29/18 10:00 12/09/18 09:33 Heparin SUB-Q 5,000 unit Q12HR DEEPTI Administration Insulin Glargine 10 units 12/01/18 22:00 12/08/18 21:57 Lantus SUB-Q 10 units QHS DEEPTI Administration Insulin Human Regular 0 units 11/29/18 22:00 12/08/18 21:58 Humulin R SUB-Q 1 units QHS [facility] Administration Protocol Insulin Human Regular 0 units 11/29/18 07:30 12/09/18 12:56 Humulin R SUB-Q Not Given [facility] Protocol Levothyroxine Sodium 75 mcg 11/29/18 07:00 12/09/18 06:10 Synthroid PO 75 mcg QAM@0600 DEEPTI Administration Losartan Potassium 100 mg 11/29/18 20:00 12/08/18 21:59 Cozaar PO Not Given 1999 [facility] Melatonin 5 mg 12/02/18 22:00 12/08/18 21:55 Melatonin PO 5 mg QHS DEEPTI Administration Metoprolol Tartrate 25 mg 11/29/18 10:00 12/09/18 09:31 Lopressor PO 25 mg BID DEEPTI Administration Multivitamins 1 each 11/29/18 10:00 12/09/18 09:31 Theragran Tab PO 1 each DAILY DEEPTI Administration Nitroglycerin 0.5 inch 11/29/18 10:00 12/09/18 12:56 Nitro-Bid 2% TP Not Given QIDNTG [facility] Protocol Ondansetron HCl 4 mg 11/29/18 06:22 12/04/18 02:47 Zofran IV 4 mg Q8H PRN Administration Nausea And Vomiting Polyethylene Glycol 17 gm 11/29/18 10:00 12/01/18 10:18 Miralax 3350 PO 17 gm DAILY PRN Administration Constipation Nutrition/Malnutrition Assess - Dietary Evaluation Nutrition/Malnutrition Findings: Nutrition Notes Start: 12/05/18 16:46 Freq: Status: Active Protocol: Document 12/08/18 15:13 RM (Rec: 12/08/18 15:16 RM [id number]) Nutrition Notes Initial or Follow up Reassessment Current Diagnosis Heart Failure Other Pertinent Diagnosis Sacral PU Current Diet Cardiac/Consistent CHO Labs/Tests Reviewed Pertinent Medications Lasix, Zofran Height 5 ft 7 in Weight 62.7 kg [place] Body Weight (kg) 61.36 BMI 21.6 Subjective/Other Information Per nurse pt is away from room for paracentisis. Also stated that pt is requesting pureed meats d/t having difficulty w/ the ground meats. Noted breakfast at bedside w/100% eaten. Burn Absent Trauma Absent #1 Nutrition Diagnosis Inadequate oral intake Diagnosis Progress(for reassessment Continues documentation) Is patient on ventilator? No Is Patient Ambulatory and/or Out of Bed No REE-([facility]-confined to bed) 1350.672 Calculation Used for Recommendations [facility] Additional Notes Protein Needs:75-94g (1.2-1.5g /kg) Fluid Needs: 1 ml/kcal Nutrition Intervention Change Diet Order: Cardiac/Consitent CHO, Mech soft w/pureed meat Goal #1 Meet at least 75% of calorie and protein needs via PO intakes Anticipated Discharge Needs: Unable to determine at this time Follow-Up By: 12/10/18 Additional Comments Follow for PO intakes
[2018-12-09] MEDS: MELATONIN PO SCH (21:19)
[2018-12-09] MEDS: LANTUS SUB-Q SCH (21:23)
[2018-12-09] MEDS: COZAAR PO SCH (21:23)
[2018-12-10] MEDS: LASIX IV SCH (05:27)
[2018-12-10] MEDS: SYNTHROID PO SCH (05:27)
[2018-12-10] MEDS: NITRO-BID 2% TP SCH ×3 (05:28→18:32)
[2018-12-10 05:38] LABS: Basophils # (Auto) 0.1 K/mm3 (0.0-0.1); Basophils % (Auto) 0.8 % (0.0-1.8); Eosinophils # (Auto) 0.3 K/mm3 (0.0-0.4); Eosinophils % (Auto) 3.4 % (0.0-4.3); Hematocrit 39.6 % (30.3-42.9); Hemoglobin 13.3 gm/dl (10.1-14.3); Lymphocytes # (Auto) 1.6 K/mm3 (1.2-5.4); Lymphocytes % (Auto) 15.8 % (13.4-35.0); Mean Corpuscular HGB Conc 34 % (30-34); Mean Corpuscular Volume 95 fl (79-97); Monocytes # (Auto) 0.7 K/mm3 (0.0-0.8); Monocytes % (Auto) 7.1 % (0.0-7.3); Platelet Count 271 K/mm3 (140-440); Red Blood Count 4.16 M/mm3 (3.65-5.03); Red Cell Distribution Width 14.6 % (13.2-15.2)
[2018-12-10 05:50] LABS: BUN/Creatinine Ratio 50; Blood Urea Nitrogen 30 mg/dL (7-17); Calcium 8.5 mg/dL (8.4-10.2); Hemolysis Index 13
[2018-12-10 06:18] LABS: Alanine Aminotransferase 51 units/L (7-56); Albumin 2.2 g/dL (3.9-5)
[2018-12-10] MEDS: LOPRESSOR PO SCH ×2 (10:24→21:50)
[2018-12-10] MEDS: TYLENOL PO PRN (10:24)
[2018-12-10] MEDS: HEPARIN SUB-Q SCH ×2 (10:25→21:50)
[2018-12-10] MEDS: THERAGRAN Tab PO SCH (10:25)
[2018-12-10] MEDS: HALFPRIN EC PO SCH (10:25)
[2018-12-10] MEDS: K-DUR PO SCH (10:25)
[2018-12-10] MEDS: ZYLOPRIM PO SCH (10:25)
--- NOTE | 2018-12-10 10:39 | Progress Note ---
<BRANDT CASTANEDA - Last Filed: 12/10/18 10:38> Assessment and Plan Pleural effusion Congestive heart failure Mitral valve disease, rheumatic Bilateral pleural effusion may be likely due to heart failure An echocardiogram done during this admission shows a calcified mitral valve with at least moderate mitral stenosis, mean transmitral gradient of 10. In addition, there was severe mitral regurgitation. Left ventricle systolic function well- preserved, ejection fraction 50-55%. There was moderate pulmonary hypertension with a pulmonary artery systolic pressure of 44. Recommendation: Continue medical therapy. We will proceed with a right and left heart catheterization for further evaluation of valvular disease and coronary disease on . Subjective Date of service: 12/10/18 Principal diagnosis: pl effusion Interval history: Patient is resting in comfortably. No cardiac events. No distress noted. Objective Vital Signs Temp Pulse Resp BP Pulse Ox 12/10/18 07:39 98.1 F 63 18 122/47 95 12/10/18 04:08 97.9 F 60 19 120/48 96 12/10/18 00:00 64 12/09/18 23:48 98.2 F 58 L 20 122/47 97 12/09/18 21:23 78 12/09/18 20:42 96 12/09/18 19:25 97.9 F 42 L 18 145/62 98 12/09/18 17:37 73 141/54 12/09/18 17:00 70 12/09/18 16:19 98.0 F 73 18 98 12/09/18 16:17 98.0 F 74 18 118/56 98 12/09/18 12:56 67 124/46 12/09/18 12:00 60 12/09/18 11:18 98.0 F 66 18 125/47 96 - Physical Examination General: No Apparent Distress HEENT: Positive: PERRL Neck: Positive: trachea midline Cardiac: Positive: Other (paced) Lungs: Positive: Decreased Breath Sounds Neuro: Positive: Grossly Intact Abdomen: Positive: Soft Extremities: Absent: edema - Labs and Meds Cardiac Enzymes 12/10/18 Range/Units 04:17 AST 60 H (5-40) units/L CBC 12/10/18 Range/Units 04:17 WBC 10.2 (4.5-11.0) K/mm3 RBC 4.16 (3.65-5.03) M/mm3 Hgb 13.3 (10.1-14.3) gm/dl Hct 39.6 (30.3-42.9) % Plt Count 271 (140-440) K/mm3 Lymph # 1.6 (1.2-5.4) K/mm3 [place] # 0.7 (0.0-0.8) K/mm3 Eos # 0.3 (0.0-0.4) K/mm3 Baso # 0.1 (0.0-0.1) K/mm3 Comprehensive Metabolic Panel 12/10/18 Range/Units 04:17 Sodium 141 (137-145) mmol/L Potassium 3.6 (3.6-5.0) mmol/L Chloride 98.5 (98-107) mmol/L Carbon Dioxide 35 H (22-30) mmol/L BUN 30 H (7-17) mg/dL Creatinine 0.6 L (0.7-1.2) mg/dL Glucose 145 H (65-100) mg/dL Calcium 8.5 (8.4-10.2) mg/dL AST 60 H (5-40) units/L ALT 51 (7-56) units/L Alkaline Phosphatase 76 (35-129) units/L Total Protein 5.6 L (6.3-8.2) g/dL Albumin 2.2 L (3.9-5) g/dL <ERICH MADISON - Last Filed: 12/10/18 11:37> Assessment and Plan Seen and evaluated the patient and agree with the assessment and plan. The patient is now breathing much more comfortably after thoracentesis. We'll plan for right and left heart catheterization tomorrow. Objective Vital Signs Temp Pulse Resp BP Pulse Ox 12/10/18 10:57 97 12/10/18 07:39 98.1 F 63 18 122/47 95 12/10/18 04:08 97.9 F 60 19 120/48 96 12/10/18 00:00 64 12/09/18 23:48 98.2 F 58 L 20 122/47 97 12/09/18 21:23 78 12/09/18 20:42 96 12/09/18 19:25 97.9 F 42 L 18 145/62 98 12/09/18 17:37 73 141/54 12/09/18 17:00 70 12/09/18 16:19 98.0 F 73 18 98 12/09/18 16:17 98.0 F 74 18 118/56 98 12/09/18 12:56 67 124/46 12/09/18 12:00 60 - Labs and Meds Cardiac Enzymes 12/10/18 Range/Units 04:17 AST 60 H (5-40) units/L CBC 12/10/18 Range/Units 04:17 WBC 10.2 (4.5-11.0) K/mm3 RBC 4.16 (3.65-5.03) M/mm3 Hgb 13.3 (10.1-14.3) gm/dl Hct 39.6 (30.3-42.9) % Plt Count 271 (140-440) K/mm3 Lymph # 1.6 (1.2-5.4) K/mm3 [place] # 0.7 (0.0-0.8) K/mm3 Eos # 0.3 (0.0-0.4) K/mm3 Baso # 0.1 (0.0-0.1) K/mm3 Comprehensive Metabolic Panel 12/10/18 Range/Units 04:17 Sodium 141 (137-145) mmol/L Potassium 3.6 (3.6-5.0) mmol/L Chloride 98.5 (98-107) mmol/L Carbon Dioxide 35 H (22-30) mmol/L BUN 30 H (7-17) mg/dL Creatinine 0.6 L (0.7-1.2) mg/dL Glucose 145 H (65-100) mg/dL Calcium 8.5 (8.4-10.2) mg/dL AST 60 H (5-40) units/L ALT 51 (7-56) units/L Alkaline Phosphatase 76 (35-129) units/L Total Protein 5.6 L (6.3-8.2) g/dL Albumin 2.2 L (3.9-5) g/dL
[2018-12-10] MEDS: HumuLIN R SUB-Q SCH ×3 (11:29→21:51)
--- NOTE | 2018-12-10 12:47 | Progress Note ---
Assessment and Plan 83 y/o female with bilateral pleural effusion, right > left 1. Transudative effusion most likely, awaiting protein 2. Per cards, left and right heart cath tomorrow 3. Will continue to follow. Subjective Date of service: 12/10/18 Principal diagnosis: pl effusion Interval history: No acute events. Reviewed Cards note from today. Stable on 2 liters NC with good sats. Objective Vital Signs - 12hr 12/10/18 12/10/18 12/10/18 04:08 07:39 10:00 Temperature 97.9 F 98.1 F Pulse Rate 60 63 60 Respiratory 19 18 Rate Blood Pressure 120/48 122/47 O2 Sat by Pulse 96 95 Oximetry 12/10/18 12/10/18 10:57 11:38 Temperature 97.9 F Pulse Rate 71 Respiratory 18 Rate Blood Pressure 141/62 O2 Sat by Pulse 97 94 Oximetry Constitutional: alert Eyes: non-icteric ENT: oropharynx dry Neck: supple Effort: normal Ascultation: Bilateral: clear (no wheeze ), diminished breath sounds (absent bs bases ) Percussion: Bilateral: dull (bases) Cardiovascular: irregular rhythm, murmur noted (hi pitched holosys) Gastrointestinal: soft Integumentary: normal Extremities: no edema Neurologic: normal mental status CBC and BMP: 12/10/18 04:17 12/10/18 04:17 ABG, PT/INR, D-dimer: PT/INR, D-dimer PT 15.6 Sec. (12.2-14.9) H 12/04/18 13:06 INR 1.27 (0.87-1.13) H 12/04/18 13:06 Abnormal lab findings: Abnormal Labs 11/29/18 11/29/18 11/29/18 02:35 03:31 03:31 WBC 16.1 H Hgb 14.6 H Hct 44.2 H Lymph % (Auto) 9.4 L [place] # 0.9 H Seg Neutrophils % 84.2 H Seg Neutrophils # 13.6 H PT INR Chloride Carbon Dioxide BUN 30 H Creatinine Glucose 147 H POC Glucose AST 51 H ALT CK-MB (CK-2) Rel Index Troponin T 0.099 H NT-Pro-B Natriuret Pep 13925 H Total Protein Albumin 3.5 L LDL Cholesterol Direct HDL Cholesterol Urine WBC (Auto) > 182.0 H 11/29/18 11/29/18 11/29/18 07:48 12:09 12:09 WBC Hgb Hct Lymph % (Auto) [place] # Seg Neutrophils % Seg Neutrophils # PT INR Chloride Carbon Dioxide BUN Creatinine Glucose POC Glucose 143 H 117 H AST ALT CK-MB (CK-2) Rel Index 7.3 H Troponin T 0.094 H NT-Pro-B Natriuret Pep Total Protein Albumin LDL Cholesterol Direct HDL Cholesterol Urine WBC (Auto) 11/29/18 11/29/18 11/29/18 16:47 18:01 21:01 WBC Hgb Hct Lymph % (Auto) [place] # Seg Neutrophils % Seg Neutrophils # PT INR Chloride Carbon Dioxide BUN Creatinine Glucose POC Glucose 142 H 226 H AST ALT CK-MB (CK-2) Rel Index 6.6 H Troponin T 0.086 H NT-Pro-B Natriuret Pep Total Protein Albumin LDL Cholesterol Direct 33 L HDL Cholesterol 34 L Urine WBC (Auto) 11/30/18 11/30/18 11/30/18 03:17 07:56 11:44 WBC Hgb Hct Lymph % (Auto) [place] # Seg Neutrophils % Seg Neutrophils # PT INR Chloride Carbon Dioxide BUN Creatinine Glucose POC Glucose 163 H 205 H 221 H AST ALT CK-MB (CK-2) Rel Index Troponin T NT-Pro-B Natriuret Pep Total Protein Albumin LDL Cholesterol Direct HDL Cholesterol Urine WBC (Auto) 11/30/18 11/30/18 12/01/18 16:47 20:19 03:47 WBC 15.3 H Hgb Hct Lymph % (Auto) 9.6 L [place] # 1.0 H Seg Neutrophils % 83.3 H Seg Neutrophils # 12.8 H PT INR Chloride Carbon Dioxide BUN Creatinine Glucose POC Glucose 196 H 218 H AST ALT CK-MB (CK-2) Rel Index Troponin T NT-Pro-B Natriuret Pep Total Protein Albumin LDL Cholesterol Direct HDL Cholesterol Urine WBC (Auto) 12/01/18 12/01/18 12/01/18 03:47 08:04 11:56 WBC Hgb Hct Lymph % (Auto) [place] # Seg Neutrophils % Seg Neutrophils # PT INR Chloride Carbon Dioxide BUN 27 H Creatinine Glucose 190 H POC Glucose 212 H 310 H AST ALT CK-MB (CK-2) Rel Index Troponin T NT-Pro-B Natriuret Pep Total Protein Albumin LDL Cholesterol Direct HDL Cholesterol Urine WBC (Auto) 12/01/18 12/01/18 12/02/18 16:32 21:51 07:54 WBC Hgb Hct Lymph % (Auto) [place] # Seg Neutrophils % Seg Neutrophils # PT INR Chloride Carbon Dioxide BUN Creatinine Glucose POC Glucose 278 H 158 H 175 H AST ALT CK-MB (CK-2) Rel Index Troponin T NT-Pro-B Natriuret Pep Total Protein Albumin LDL Cholesterol Direct HDL Cholesterol Urine WBC (Auto) 12/02/18 12/02/18 12/02/18 11:34 16:46 18:41 WBC Hgb Hct Lymph % (Auto) [place] # Seg Neutrophils % Seg Neutrophils # PT INR Chloride Carbon Dioxide BUN Creatinine Glucose POC Glucose 271 H 178 H 248 H AST ALT CK-MB (CK-2) Rel Index Troponin T NT-Pro-B Natriuret Pep Total Protein Albumin LDL Cholesterol Direct HDL Cholesterol Urine WBC (Auto) 12/02/18 12/03/18 12/03/18 20:42 07:33 12:54 WBC Hgb Hct Lymph % (Auto) [place] # Seg Neutrophils % Seg Neutrophils # PT INR Chloride Carbon Dioxide BUN Creatinine Glucose POC Glucose 212 H 141 H 228 H AST ALT CK-MB (CK-2) Rel Index Troponin T NT-Pro-B Natriuret Pep Total Protein Albumin LDL Cholesterol Direct HDL Cholesterol Urine WBC (Auto) 12/03/18 12/03/18 12/04/18 16:49 22:48 07:39 WBC Hgb Hct Lymph % (Auto) [place] # Seg Neutrophils % Seg Neutrophils # PT INR Chloride Carbon Dioxide BUN Creatinine Glucose POC Glucose 207 H 217 H 155 H AST ALT CK-MB (CK-2) Rel Index Troponin T NT-Pro-B Natriuret Pep Total Protein Albumin LDL Cholesterol Direct HDL Cholesterol Urine WBC (Auto) 12/04/18 12/04/18 12/04/18 11:13 13:06 13:06 WBC Hgb Hct Lymph % (Auto) [place] # Seg Neutrophils % Seg Neutrophils # PT 15.6 H INR 1.27 H Chloride 95.2 L Carbon Dioxide 35 H D BUN 32 H Creatinine Glucose 292 H POC Glucose 281 H AST ALT CK-MB (CK-2) Rel Index Troponin T NT-Pro-B Natriuret Pep Total Protein Albumin LDL Cholesterol Direct HDL Cholesterol Urine WBC (Auto) 12/04/18 12/04/18 12/05/18 15:51 20:56 07:21 WBC Hgb Hct Lymph % (Auto) [place] # Seg Neutrophils % Seg Neutrophils # PT INR Chloride Carbon Dioxide BUN Creatinine Glucose POC Glucose 234 H 285 H 149 H AST ALT CK-MB (CK-2) Rel Index Troponin T NT-Pro-B Natriuret Pep Total Protein Albumin LDL Cholesterol Direct HDL Cholesterol Urine WBC (Auto) 12/05/18 12/05/18 12/05/18 12:39 16:38 20:35 WBC Hgb Hct Lymph % (Auto) [place] # Seg Neutrophils % Seg Neutrophils # PT INR Chloride Carbon Dioxide BUN Creatinine Glucose POC Glucose 326 H 210 H 145 H AST ALT CK-MB (CK-2) Rel Index Troponin T NT-Pro-B Natriuret Pep Total Protein Albumin LDL Cholesterol Direct HDL Cholesterol Urine WBC (Auto) 12/06/18 12/06/18 12/06/18 08:09 11:05 12:39 WBC Hgb Hct Lymph % (Auto) [place] # Seg Neutrophils % Seg Neutrophils # PT INR Chloride 96.1 L Carbon Dioxide 35 H BUN 35 H Creatinine Glucose 210 H POC Glucose 148 H 197 H AST ALT CK-MB (CK-2) Rel Index Troponin T NT-Pro-B Natriuret Pep Total Protein Albumin LDL Cholesterol Direct HDL Cholesterol Urine WBC (Auto) 12/06/18 12/06/18 12/07/18 16:59 21:12 07:26 WBC Hgb Hct Lymph % (Auto) [place] # Seg Neutrophils % Seg Neutrophils # PT INR Chloride Carbon Dioxide BUN Creatinine Glucose POC Glucose 224 H 230 H 151 H AST ALT CK-MB (CK-2) Rel Index Troponin T NT-Pro-B Natriuret Pep Total Protein Albumin LDL Cholesterol Direct HDL Cholesterol Urine WBC (Auto) 12/07/18 12/07/18 12/07/18 12:07 16:03 21:30 WBC Hgb Hct Lymph % (Auto) [place] # Seg Neutrophils % Seg Neutrophils # PT INR Chloride Carbon Dioxide BUN Creatinine Glucose POC Glucose 275 H 270 H 224 H AST ALT CK-MB (CK-2) Rel Index Troponin T NT-Pro-B Natriuret Pep Total Protein Albumin LDL Cholesterol Direct HDL Cholesterol Urine WBC (Auto) 12/08/18 12/08/18 12/08/18 05:33 05:33 08:32 WBC 12.0 H Hgb Hct Lymph % (Auto) 11.2 L [place] # Seg Neutrophils % 80.2 H Seg Neutrophils # 9.6 H PT INR Chloride 97.5 L Carbon Dioxide 36 H BUN 38 H Creatinine Glucose 151 H POC Glucose 147 H AST 67 H ALT 59 H CK-MB (CK-2) Rel Index Troponin T NT-Pro-B Natriuret Pep Total Protein 5.8 L Albumin 2.4 L LDL Cholesterol Direct HDL Cholesterol Urine WBC (Auto) 12/08/18 12/08/18 12/09/18 17:40 21:14 08:28 WBC Hgb Hct Lymph % (Auto) [place] # Seg Neutrophils % Seg Neutrophils # PT INR Chloride Carbon Dioxide BUN Creatinine Glucose POC Glucose 196 H 236 H 170 H AST ALT CK-MB (CK-2) Rel Index Troponin T NT-Pro-B Natriuret Pep Total Protein Albumin LDL Cholesterol Direct HDL Cholesterol Urine WBC (Auto) 12/09/18 12/09/18 12/09/18 11:23 16:25 20:49 WBC Hgb Hct Lymph % (Auto) [place] # Seg Neutrophils % Seg Neutrophils # PT INR Chloride Carbon Dioxide BUN Creatinine Glucose POC Glucose 147 H 203 H 318 H AST ALT CK-MB (CK-2) Rel Index Troponin T NT-Pro-B Natriuret Pep Total Protein Albumin LDL Cholesterol Direct HDL Cholesterol Urine WBC (Auto) 12/10/18 12/10/18 12/10/18 04:17 04:17 07:44 WBC Hgb Hct Lymph % (Auto) [place] # Seg Neutrophils % 72.9 H Seg Neutrophils # PT INR Chloride Carbon Dioxide 35 H BUN 30 H Creatinine 0.6 L Glucose 145 H POC Glucose 117 H AST 60 H ALT CK-MB (CK-2) Rel Index Troponin T NT-Pro-B Natriuret Pep Total Protein 5.6 L Albumin 2.2 L LDL Cholesterol Direct HDL Cholesterol Urine WBC (Auto)
--- NOTE | 2018-12-10 14:43 | Progress Note ---
Assessment and Plan Assessment and plan: Bilateral Pleural effusion -appears to be due to CHF -Status post US-guided thoracentesis with 1100 mls of pleural fluid drained, analysis pending -Pulmonology following Acute diastolic HF exacerbation -Continue IV diuretics and Lopressor -echocardiogram done during this admission shows a calcified mitral valve with at least moderate mitral stenosis, mean transmitral gradient of 10. In addition, there was severe mitral regurgitation. Left ventricle systolic function well- preserved, ejection fraction 50-55%. There was moderate pulmonary hypertension with a pulmonary artery systolic pressure of 44. -Cardiology following Moderate mitral valve stenosis, rheumatic -For right and left heart catheterization for further evaluation of valvular disease and coronary disease on per Cardiology. 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 History Interval history: Pt reports productive cough today. She denied chest pain or shortness of breath Hospitalist Physical - Constitutional Vitals: Temp Pulse Resp BP Pulse Ox 97.9 F 71 18 141/62 94 12/10/18 11:38 12/10/18 11:38 12/10/18 11:38 12/10/18 11:38 12/10/18 11:38 General appearance: Present: no acute distress - EENT Eyes: Present: PERRL, EOM intact ENT: hearing intact, clear oral mucosa - Neck Neck: Present: supple - Respiratory Respiratory effort: normal Respiratory: right: rales, left: CTA - Cardiovascular Rhythm: regular Heart Sounds: Present: S1 & S2 - Extremities Extremities: No edema - Abdominal General gastrointestinal: soft, non-tender, normal bowel sounds - Integumentary Integumentary: Present: clear, warm, dry - Psychiatric Psychiatric: appropriate mood/affect - Neurologic Neurologic: CNII-XII intact Results - Labs CBC & Chem 7: 12/10/18 04:17 12/10/18 04:17 Labs: Laboratory Last Values WBC 10.2 K/mm3 (4.5-11.0) 12/10/18 04:17 RBC 4.16 M/mm3 (3.65-5.03) 12/10/18 04:17 Hgb 13.3 gm/dl (10.1-14.3) 12/10/18 04:17 Hct 39.6 % (30.3-42.9) 12/10/18 04:17 MCV 95 fl (79-97) 12/10/18 04:17 MCH 32 pg (28-32) 12/10/18 04:17 MCHC 34 % (30-34) 12/10/18 04:17 RDW 14.6 % (13.2-15.2) 12/10/18 04:17 Plt Count 271 K/mm3 (140-440) 12/10/18 04:17 Lymph % (Auto) 15.8 % (13.4-35.0) 12/10/18 04:17 [place] % (Auto) 7.1 % (0.0-7.3) 12/10/18 04:17 Eos % (Auto) 3.4 % (0.0-4.3) 12/10/18 04:17 Baso % (Auto) 0.8 % (0.0-1.8) 12/10/18 04:17 Lymph # 1.6 K/mm3 (1.2-5.4) 12/10/18 04:17 [place] # 0.7 K/mm3 (0.0-0.8) 12/10/18 04:17 Eos # 0.3 K/mm3 (0.0-0.4) 12/10/18 04:17 Baso # 0.1 K/mm3 (0.0-0.1) 12/10/18 04:17 Seg Neutrophils % 72.9 % (40.0-70.0) H 12/10/18 04:17 Seg Neutrophils # 7.4 K/mm3 (1.8-7.7) 12/10/18 04:17 PT 15.6 Sec. (12.2-14.9) H 12/04/18 13:06 INR 1.27 (0.87-1.13) H 12/04/18 13:06 Sodium 141 mmol/L (137-145) 12/10/18 04:17 Potassium 3.6 mmol/L (3.6-5.0) 12/10/18 04:17 Chloride 98.5 mmol/L (98-107) 12/10/18 04:17 Carbon Dioxide 35 mmol/L (22-30) H 12/10/18 04:17 11 mmol/L 12/10/18 04:17 BUN 30 mg/dL (7-17) H 12/10/18 04:17 0.6 mg/dL (0.7-1.2) L 12/10/18 04:17 Estimated GFR > 60 ml/min 12/10/18 04:17 50 % 12/10/18 04:17 Glucose 145 mg/dL (65-100) H 12/10/18 04:17 POC Glucose 117 (70-105) H 12/10/18 07:44 Lactic Acid 1.10 mmol/L (0.7-2.0) 11/29/18 05:21 Calcium 8.5 mg/dL (8.4-10.2) 12/10/18 04:17 0.50 mg/dL (0.1-1.2) 12/10/18 04:17 AST 60 units/L (5-40) H 12/10/18 04:17 ALT 51 units/L (7-56) 12/10/18 04:17 76 units/L (35-129) 12/10/18 04:17 54 units/L (30-135) 11/29/18 18:01 CK-MB (CK-2) 3.6 ng/mL (0.0-4.0) 11/29/18 18:01 CK-MB (CK-2) Rel Index 6.6 (0-4) H 11/29/18 18:01 0.086 ng/mL (0.00-0.029) H 11/29/18 18:01 NT-Pro-B Natriuret Pep 54619 pg/mL (0-900) H 11/29/18 03:31 5.6 g/dL (6.3-8.2) L 12/10/18 04:17 2.2 g/dL (3.9-5) L 12/10/18 04:17 0.6 % 12/10/18 04:17 Triglycerides 107 mg/dL (2-149) 11/29/18 18:01 Cholesterol 80 mg/dL (50-199) 11/29/18 18:01 33 mg/dL (50-130) L 11/29/18 18:01 34 mg/dL (40-59) L 11/29/18 18:01 2.35 % 11/29/18 18:01 Yellow (Yellow) 11/29/18 02:35 Turbid (Clear) 11/29/18 02:35 5.0 (5.0-7.0) 11/29/18 02:35 Ur Specific [place] 1.018 (1.003-1.030) 11/29/18 02:35 30 mg/dl mg/dL (Negative) 11/29/18 02:35 Neg mg/dL (Negative) 11/29/18 02:35 Neg mg/dL (Negative) 11/29/18 02:35 Neg (Negative) 11/29/18 02:35 Neg (Negative) 11/29/18 02:35 Neg (Negative) 11/29/18 02:35 < 2.0 mg/dL (<2.0) 11/29/18 02:35 Ur Leukocyte Esterase Mod (Negative) 11/29/18 02:35 > 182.0 /HPF (0.0-6.0) H 11/29/18 02:35 33.0 /HPF (0.0-6.0) 11/29/18 02:35 U Epithel Cells (Auto) 1.0 /HPF (0-13.0) 11/29/18 02:35 1+ /HPF (Negative) 11/29/18 02:35 3+ /HPF 11/29/18 02:35 Few /HPF 11/29/18 02:35 Fluid Type Pleural 12/08/18 01:00 Fluid Color Yellow 12/08/18 01:00 Fluid Appearance Clear 12/08/18 01:00 Fluid WBC 145 /mm3 12/08/18 01:00 Fluid RBC 1800 /mm3 12/08/18 01:00 Fluid Diff Comment 12/08/18 01:00 Fluid Seg Neutrophils 16.0 % 12/08/18 01:00 Fluid Lymphocytes 59.0 % 12/08/18 01:00 Fluid Reactive Lymphs 0 % 12/08/18 01:00 Fluid Monocytes 25.0 % 12/08/18 01:00 Fluid Eosinophils 0 % 12/08/18 01:00 Fluid Basophils 0 % 12/08/18 01:00 Active Medications - Current Medications Current Medications: Generic Name Dose Route Start Last Admin Trade Name Freq PRN Reason Stop Dose Admin Acetaminophen 650 mg 11/29/18 06:22 12/10/18 10:24 Tylenol PO 650 mg Q4H PRN Administration Fever >101 Allopurinol 300 mg 11/29/18 10:00 12/10/18 10:25 Zyloprim PO 300 mg QDAY DEEPTI Administration Aspirin 81 mg 11/29/18 10:00 12/10/18 10:25 Halfprin Ec PO 81 mg QDAY DEEPTI Administration Atorvastatin Calcium 40 mg 11/29/18 22:00 12/09/18 21:19 Lipitor PO 40 mg QHS DEEPTI Administration Dextrose 50 ml 11/29/18 06:15 D50w (25gm) Syringe IV PRN PRN Hypoglycemia Furosemide 40 mg 11/30/18 18:00 12/10/18 05:27 Lasix IV 40 mg 0600,1800 DEEPTI Administration Heparin Sodium (Porcine) 5,000 unit 11/29/18 10:00 12/10/18 10:25 Heparin SUB-Q 5,000 unit Q12HR DEEPTI Administration Insulin Glargine 10 units 12/01/18 22:00 12/09/18 21:23 Lantus SUB-Q 10 units QHS [facility] Administration Insulin Human Regular 0 units 11/29/18 22:00 12/09/18 21:24 Humulin R SUB-Q 4 units QHS [facility] Administration Protocol Insulin Human Regular 0 units 11/29/18 07:30 12/10/18 11:29 Humulin R SUB-Q Not Given AC [facility] Protocol Levothyroxine Sodium 75 mcg 11/29/18 07:00 12/10/18 05:27 Synthroid PO 75 mcg QAM@0600 DEEPTI Administration Melatonin 5 mg 12/02/18 22:00 12/09/18 21:19 Melatonin PO 5 mg QHS DEEPTI Administration Metoprolol Tartrate 25 mg 11/29/18 10:00 12/10/18 10:24 Lopressor PO 25 mg BID DEEPTI Administration Multivitamins 1 each 11/29/18 10:00 12/10/18 10:25 Theragran Tab PO 1 each DAILY DEEPTI Administration Nitroglycerin 0.5 inch 11/29/18 10:00 12/10/18 11:29 Nitro-Bid 2% TP Not Given QIDNTG [facility] Protocol Ondansetron HCl 4 mg 11/29/18 06:22 12/04/18 02:47 Zofran IV 4 mg Q8H PRN Administration Nausea And Vomiting Polyethylene Glycol 17 gm 11/29/18 10:00 12/01/18 10:18 Miralax 3350 PO 17 gm DAILY PRN Administration Constipation Potassium Chloride 20 meq 12/10/18 11:00 12/10/18 10:25 K-Dur PO 20 meq QDAY DEEPTI Administration Nutrition/Malnutrition Assess - Dietary Evaluation Nutrition/Malnutrition Findings: Nutrition Notes Start: 12/05/18 16:46 Freq: Status: Active Protocol: Document 12/08/18 15:13 RM (Rec: 12/08/18 15:16 RM [id number]) Nutrition Notes Initial or Follow up Reassessment Current Diagnosis Heart Failure Other Pertinent Diagnosis Sacral PU Current Diet Cardiac/Consistent CHO Labs/Tests Reviewed Pertinent Medications Lasix, Zofran Height 5 ft 7 in Weight 62.7 kg [place] Body Weight (kg) 61.36 BMI 21.6 Subjective/Other Information Per nurse pt is away from room for paracentisis. Also stated that pt is requesting pureed meats d/t having difficulty w/ the ground meats. Noted breakfast at bedside w/100% eaten. Burn Absent Trauma Absent #1 Nutrition Diagnosis Inadequate oral intake Diagnosis Progress(for reassessment Continues documentation) Is patient on ventilator? No Is Patient Ambulatory and/or Out of Bed No REE-([facility]-confined to bed) [phone] Calculation Used for Recommendations [facility] Additional Notes Protein Needs:75-94g (1.2-1.5g /kg) Fluid Needs: 1 ml/kcal Nutrition Intervention Change Diet Order: Cardiac/Consitent CHO, Mech soft w/pureed meat Goal #1 Meet at least 75% of calorie and protein needs via PO intakes Anticipated Discharge Needs: Unable to determine at this time Follow-Up By: 12/10/18 Additional Comments Follow for PO intakes
[2018-12-10] MEDS: LANTUS SUB-Q SCH (21:49)
[2018-12-10] MEDS: MELATONIN PO SCH (21:50)
[2018-12-11] MEDS: DUONEB *Not for PRN Use IH SCH ×5 (05:02→20:30)
[2018-12-11] MEDS: LASIX IV SCH ×2 (05:11→12:19)
[2018-12-11] MEDS: SYNTHROID PO SCH (05:11)
[2018-12-11] MEDS: NITRO-BID 2% TP SCH ×3 (05:12→19:30)
[2018-12-11 05:59] LABS: Basophils # (Auto) 0.1 K/mm3 (0.0-0.1); Basophils % (Auto) 0.7 % (0.0-1.8); Eosinophils # (Auto) 0.3 K/mm3 (0.0-0.4); Hematocrit 40.7 % (30.3-42.9); Hemoglobin 13.4 gm/dl (10.1-14.3); Lymphocytes # (Auto) 1.9 K/mm3 (1.2-5.4); Lymphocytes % (Auto) 16.8 % (13.4-35.0); Mean Corpuscular HGB Conc 33 % (30-34); Mean Corpuscular Volume 95 fl (79-97); Monocytes # (Auto) 0.8 K/mm3 (0.0-0.8); Monocytes % (Auto) 7.3 % (0.0-7.3); Platelet Count 312 K/mm3 (140-440); Red Blood Count 4.29 M/mm3 (3.65-5.03)
[2018-12-11 06:07] LABS: INR 1.12 (0.87-1.13)
[2018-12-11 06:12] LABS: BUN/Creatinine Ratio 42; Blood Urea Nitrogen 25 mg/dL (7-17); Calcium 9.2 mg/dL (8.4-10.2); Hemolysis Index 4
[2018-12-11 06:15] LABS: BUN/Creatinine Ratio 42; Blood Urea Nitrogen 25 mg/dL (7-17); Calcium 9.1 mg/dL (8.4-10.2); Hemolysis Index 3
[2018-12-11] MEDS: TYLENOL PO PRN (08:41)
[2018-12-11] MEDS ORDERED: NACL 0.9% 500 ML 500 ML ONE (10:24)
[2018-12-11] MEDS ORDERED: NACL 0.9% 500 ML 500 ML IV SCH ×2 (10:26→11:00)
[2018-12-11] MEDS ORDERED: SUBLIMAZE ONE (10:59)
[2018-12-11] MEDS ORDERED: VERSED ONE (10:59)
[2018-12-11] MEDS ORDERED: BENADRYL ONE (11:00)
[2018-12-11] MEDS ORDERED: ECOTRIN PO ONE (11:00)
[2018-12-11] MEDS ORDERED: HEPARIN/NS 5000 UNIT/500ML(CATH LAB) 1,000 ML IR ONE (11:00)
[2018-12-11] MEDS ORDERED: NITROGLYCERIN SYRINGE 3 ML ONE (11:01)
[2018-12-11] MEDS ORDERED: XYLOCAINE 2% INFILTRATI ONE (11:01)
[2018-12-11] MEDS: HEPARIN 10,000 UNITS/10 ML ONE ×2 (12:08→12:10)
[2018-12-11] MEDS ORDERED: HEPARIN/NS 5000 UNIT/500ML(CATH LAB) 500 ML IR ONE (12:12)
[2018-12-11] MEDS: HumuLIN R SUB-Q SCH ×4 (12:19→21:40)
--- NOTE | 2018-12-11 12:25 | Progress Note ---
Assessment and Plan Assessment and plan: Bilateral Pleural effusion -appears to be due to CHF, improved -Status post RT US-guided thoracentesis with 1100 mls of pleural fluid drained, analysis pending -Pulmonology following New Acute diastolic HF exacerbation, improving -Continue IV diuretics and Lopressor -echocardiogram done during this admission shows a calcified mitral valve with at least moderate mitral stenosis, mean transmitral gradient of 10. In addition, there was severe mitral regurgitation. Left ventricle systolic function well- preserved, ejection fraction 50-55%. There was moderate pulmonary hypertension with a pulmonary artery systolic pressure of 44. -Cardiology following Moderate mitral valve stenosis, rheumatic -For right and left heart catheterization for further evaluation of valvular disease and coronary disease today by Cardiology. Acute on chronic hypoxic respiratory failure, stable -Continue oxygen supplementation as needed and duonebs Sepsis probably secondary to UTI, present on admission -Now resolved -Completed IV Rocephin -Urine and blood cultures negative Transaminitis -Improved Hypothyroidism, stable -Continue synthroid Hypertension -Controlled on BB -Home amlodipine and Losartan on hold. NIDDM2 -Fairly controlled on current insulin regimen -Lantus dose increased, we'll monitor HLD -Continue statin COPD -No acute exacerbation -On duonebs Dementia,stable -Continue supportive care DVT prophylaxis with heparin Disposition: Discharge planning post right/left cardiac catheterization. History Interval history: Patient has no new complaints. Her cough is better today. She denies chest pain or shortness of breath Hospitalist Physical - Constitutional Vitals: Temp Pulse Resp BP Pulse Ox 98.3 F 83 18 143/59 93 12/11/18 10:39 12/11/18 10:39 12/11/18 10:39 12/11/18 10:39 12/11/18 10:39 General appearance: Present: no acute distress - EENT Eyes: Present: PERRL, EOM intact ENT: hearing intact, clear oral mucosa - Neck Neck: Present: supple - Respiratory Respiratory effort: normal Respiratory: bilateral: rales - Cardiovascular Rhythm: regular Heart Sounds: Present: S1 & S2 - Extremities Extremities: No edema - Abdominal General gastrointestinal: soft, non-tender, normal bowel sounds - Integumentary Integumentary: Present: clear, warm, dry - Psychiatric Psychiatric: appropriate mood/affect - Neurologic Neurologic: CNII-XII intact Results - Labs CBC & Chem 7: 12/11/18 04:02 12/11/18 04:02 Labs: Laboratory Last Values WBC 11.4 K/mm3 (4.5-11.0) H 12/11/18 04:02 RBC 4.29 M/mm3 (3.65-5.03) 12/11/18 04:02 Hgb 13.4 gm/dl (10.1-14.3) 12/11/18 04:02 Hct 40.7 % (30.3-42.9) 12/11/18 04:02 MCV 95 fl (79-97) 12/11/18 04:02 MCH 31 pg (28-32) 12/11/18 04:02 MCHC 33 % (30-34) 12/11/18 04:02 RDW 15.0 % (13.2-15.2) 12/11/18 04:02 Plt Count 312 K/mm3 (140-440) 12/11/18 04:02 Lymph % (Auto) 16.8 % (13.4-35.0) 12/11/18 04:02 [place] % (Auto) 7.3 % (0.0-7.3) 12/11/18 04:02 Eos % (Auto) 3.0 % (0.0-4.3) 12/11/18 04:02 Baso % (Auto) 0.7 % (0.0-1.8) 12/11/18 04:02 Lymph # 1.9 K/mm3 (1.2-5.4) 12/11/18 04:02 [place] # 0.8 K/mm3 (0.0-0.8) 12/11/18 04:02 Eos # 0.3 K/mm3 (0.0-0.4) 12/11/18 04:02 Baso # 0.1 K/mm3 (0.0-0.1) 12/11/18 04:02 Seg Neutrophils % 72.2 % (40.0-70.0) H 12/11/18 04:02 Seg Neutrophils # 8.3 K/mm3 (1.8-7.7) H 12/11/18 04:02 PT 14.1 Sec. (12.2-14.9) 12/11/18 04:02 INR 1.12 (0.87-1.13) 12/11/18 04:02 Sodium 139 mmol/L (137-145) 12/11/18 04:02 Sodium 140 mmol/L (137-145) 12/11/18 04:02 Potassium 3.8 mmol/L (3.6-5.0) 12/11/18 04:02 Potassium 4.2 mmol/L (3.6-5.0) 12/11/18 04:02 Chloride 97.2 mmol/L (98-107) L 12/11/18 04:02 Chloride 97.4 mmol/L (98-107) L 12/11/18 04:02 Carbon Dioxide 34 mmol/L (22-30) H 12/11/18 04:02 Carbon Dioxide 34 mmol/L (22-30) H 12/11/18 04:02 12 mmol/L 12/11/18 04:02 13 mmol/L 12/11/18 04:02 BUN 25 mg/dL (7-17) H 12/11/18 04:02 BUN 25 mg/dL (7-17) H 12/11/18 04:02 0.6 mg/dL (0.7-1.2) L 12/11/18 04:02 0.6 mg/dL (0.7-1.2) L 12/11/18 04:02 Estimated GFR > 60 ml/min 12/11/18 04:02 Estimated GFR > 60 ml/min 12/11/18 04:02 42 % 12/11/18 04:02 42 % 12/11/18 04:02 Glucose 198 mg/dL (65-100) H 12/11/18 04:02 Glucose 201 mg/dL (65-100) H 12/11/18 04:02 POC Glucose 193 (70-105) H 12/11/18 05:50 Lactic Acid 1.10 mmol/L (0.7-2.0) 11/29/18 05:21 Calcium 9.1 mg/dL (8.4-10.2) 12/11/18 04:02 Calcium 9.2 mg/dL (8.4-10.2) 12/11/18 04:02 0.50 mg/dL (0.1-1.2) 12/10/18 04:17 AST 60 units/L (5-40) H 12/10/18 04:17 ALT 51 units/L (7-56) 12/10/18 04:17 76 units/L (35-129) 12/10/18 04:17 54 units/L (30-135) 11/29/18 18:01 CK-MB (CK-2) 3.6 ng/mL (0.0-4.0) 11/29/18 18:01 CK-MB (CK-2) Rel Index 6.6 (0-4) H 11/29/18 18:01 0.086 ng/mL (0.00-0.029) H 11/29/18 18:01 NT-Pro-B Natriuret Pep 53865 pg/mL (0-900) H 11/29/18 03:31 5.6 g/dL (6.3-8.2) L 12/10/18 04:17 2.2 g/dL (3.9-5) L 12/10/18 04:17 0.6 % 12/10/18 04:17 Triglycerides 107 mg/dL (2-149) 11/29/18 18:01 Cholesterol 80 mg/dL (50-199) 11/29/18 18:01 33 mg/dL (50-130) L 11/29/18 18:01 34 mg/dL (40-59) L 11/29/18 18:01 2.35 % 11/29/18 18:01 Yellow (Yellow) 11/29/18 02:35 Turbid (Clear) 11/29/18 02:35 5.0 (5.0-7.0) 11/29/18 02:35 Ur Specific [place] 1.018 (1.003-1.030) 11/29/18 02:35 30 mg/dl mg/dL (Negative) 11/29/18 02:35 Neg mg/dL (Negative) 11/29/18 02:35 Neg mg/dL (Negative) 11/29/18 02:35 Neg (Negative) 11/29/18 02:35 Neg (Negative) 11/29/18 02:35 Neg (Negative) 11/29/18 02:35 < 2.0 mg/dL (<2.0) 11/29/18 02:35 Ur Leukocyte Esterase Mod (Negative) 11/29/18 02:35 > 182.0 /HPF (0.0-6.0) H 11/29/18 02:35 33.0 /HPF (0.0-6.0) 11/29/18 02:35 U Epithel Cells (Auto) 1.0 /HPF (0-13.0) 11/29/18 02:35 1+ /HPF (Negative) 11/29/18 02:35 3+ /HPF 11/29/18 02:35 Few /HPF 11/29/18 02:35 Fluid Type Pleural 12/08/18 01:00 Fluid Color Yellow 12/08/18 01:00 Fluid Appearance Clear 12/08/18 01:00 Fluid WBC 145 /mm3 12/08/18 01:00 Fluid RBC 1800 /mm3 12/08/18 01:00 Fluid Diff Comment 12/08/18 01:00 Fluid Seg Neutrophils 16.0 % 12/08/18 01:00 Fluid Lymphocytes 59.0 % 12/08/18 01:00 Fluid Reactive Lymphs 0 % 12/08/18 01:00 Fluid Monocytes 25.0 % 12/08/18 01:00 Fluid Eosinophils 0 % 12/08/18 01:00 Fluid Basophils 0 % 12/08/18 01:00 Active Medications - Current Medications Current Medications: Generic Name Dose Route Start Last Admin Trade Name Freq PRN Reason Stop Dose Admin Acetaminophen 650 mg 11/29/18 06:22 12/11/18 08:41 Tylenol PO 325 mg Q4H PRN Administration Fever >101 Albuterol/Ipratropium 1 ampul 12/10/18 14:45 12/11/18 07:55 Duoneb *Not For Prn Use* IH 1 ampul Q6HRT DEEPTI Administration Allopurinol 300 mg 11/29/18 10:00 12/10/18 10:25 Zyloprim PO 300 mg QDAY DEEPTI Administration Aspirin 81 mg 11/29/18 10:00 12/10/18 10:25 Halfprin Ec PO 81 mg QDAY DEEPTI Administration Atorvastatin Calcium 40 mg 11/29/18 22:00 12/10/18 21:50 Lipitor PO 40 mg QHS DEEPTI Administration Dextrose 50 ml 11/29/18 06:15 D50w (25gm) Syringe IV PRN PRN Hypoglycemia Furosemide 40 mg 11/30/18 18:00 12/11/18 12:19 Lasix IV Not Given 0600,1800 DEEPTI Heparin Sodium (Porcine) 5,000 unit 11/29/18 10:00 12/10/18 21:50 Heparin SUB-Q 5,000 unit Q12HR DEEPTI Administration Sodium Chloride 500 mls @ 50 mls/hr 12/11/18 10:26 12/11/18 10:33 Nacl 0.9% 500 Ml IV 50 mls/hr DIRECT DEEPTI Administration Insulin Glargine 15 units 12/11/18 22:00 Lantus SUB-Q QHS DEEPTI Insulin Human Regular 0 units 11/29/18 22:00 12/10/18 21:51 Humulin R SUB-Q 4 units QHS [facility] Administration Protocol Insulin Human Regular 0 units 11/29/18 07:30 12/10/18 18:33 Humulin R SUB-Q Not Given AC [facility] Protocol Levothyroxine Sodium 75 mcg 11/29/18 07:00 12/11/18 05:11 Synthroid PO 75 mcg QAM@0600 [facility] Administration Melatonin 5 mg 12/02/18 22:00 12/10/18 21:50 Melatonin PO 5 mg QHS [facility] Administration Metoprolol Tartrate 25 mg 11/29/18 10:00 12/10/18 21:50 Lopressor PO 25 mg BID DEEPTI Administration Multivitamins 1 each 11/29/18 10:00 12/10/18 10:25 Theragran Tab PO 1 each DAILY [facility] Administration Nitroglycerin 0.5 inch 11/29/18 10:00 12/11/18 12:18 Nitro-Bid 2% TP Not Given QIDNTG [facility] Protocol Ondansetron HCl 4 mg 11/29/18 06:22 12/04/18 02:47 Zofran IV 4 mg Q8H PRN Administration Nausea And Vomiting Polyethylene Glycol 17 gm 11/29/18 10:00 12/01/18 10:18 Miralax 3350 PO 17 gm DAILY PRN Administration Constipation Potassium Chloride 20 meq 12/10/18 11:00 12/10/18 10:25 K-Dur PO 20 meq QDAY DEEPTI Administration Nutrition/Malnutrition Assess - Dietary Evaluation Nutrition/Malnutrition Findings: Nutrition Notes Start: 12/05/18 16:46 Freq: Status: Active Protocol: Document 12/10/18 15:54 RM (Rec: 12/10/18 16:06 RM [id number]) Nutrition Notes Initial or Follow up Reassessment Current Diagnosis Diabetes,Hypertension,Heart Failure,Hyperlipidemia Other Pertinent Diagnosis Dementia, Sacral PU Current Diet Cardiac/Consistent CHO Labs/Tests Reviewed Pertinent Medications Anjum Ashley Kamina Height 5 ft 7 in Weight 57.5 kg [place] Body Weight (kg) 61.36 BMI 19.8 Weight change and time frame Noted wt change. Likely d/t fluid change Subjective/Other Information Pt stated that she eats half of her meals. Noted lunch at bedside w/50% eaten. Pt requested that all of the food for her meals be pureed d/t sore throat from coughing. Pt stated that she also does not like to sit all the way up to eat d/t pain from sacral PU and abdominal pain. Telecommunicator informed nurse of pt abdominal pain. Percent of energy/protein needs met: 77%/56% Burn Absent Trauma Absent #1 Nutrition Diagnosis Inadequate oral intake Diagnosis Progress(for reassessment Continues documentation) Is patient on ventilator? No Is Patient Ambulatory and/or Out of Bed No REE-([facility]-confined to bed) 1288.332 Calculation Used for Recommendations [facility] Additional Notes Protein Needs:75-94g (1.2-1.5g /kg) Fluid Needs: 1 ml/kcal Nutrition Intervention Change Diet Order: Cardiac/Consistent CHO, Pureed Add Supplement/Snack (indicate name/kcal Ensure High Protein 1 daily /protein ) Provides kCal: 160 Provides Protein (gm) 16 Goal #1 Meet at least 75% of calorie and protein needs via PO intakes Anticipated Discharge Needs: Unable to determine at this time Follow-Up By: 12/12/18 Additional Comments Follow for PO intakes, ONS intakes
[2018-12-11] MEDS ORDERED: PLAVIX ONE (12:29)
[2018-12-11] MEDS ORDERED: ALUM-MAG HYDROX-SIMETH 200-200-20MG/5ML ONE (12:29)
--- NOTE | 2018-12-11 13:08 | Event Note ---
Date: 12/11/18 Patient underwent a right heart catheterization, followed by coronary angioplasty and stenting of a greater than 99% ostial stenosis of the right coronary artery. Findings on right heart catheterization were normal right and left filling pressures, mild pulmonary hypertension and mild mitral stenosis with a mean mitral gradient of 5.3, area 1.9. Left ventricular systolic ejection fraction was mildly impaired, 35-40%. We will advise medical therapy for coronary artery disease and ischemic cardiomyopathy, including dual oral antiplatelet therapy post drug-eluting stent deployment. 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 Patient will be stable for cardiac discharge tomorrow.
--- NOTE | 2018-12-11 13:31 | Cardiac Catherization Report ---
CARDIAC CATHETERIZATION AND CORONARY ANGIOPLASTY REPORT REASON FOR PROCEDURE: The patient is an 83-year-old woman who presented to the hospital with recurrent heart failure. She has a history of coronary artery disease and remote right coronary artery stent. 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 The patient was recommended for right and left heart catheterization. PROCEDURE: 1. Right heart catheterization. 2. Left heart catheterization. 3. Selective left and right coronary angiography. 4. Left ventricular angiography. 5. Coronary angioplasty and stenting of the right coronary artery. DESCRIPTION OF PROCEDURE: The patient was prepped and draped in a sterile fashion after informed consent. The right femoral artery and vein were both entered using Seldinger technique. A 6-Samo[place] sheath was placed in the artery and an 8-Samo[place] sheath in the vein. A [place]rell catheter was then advanced to the pulmonary artery position. A pigtail catheter was advanced into the left ventricle. Simultaneous right and left heart filling pressures were measured. Cardiac output was measured using the thermodilution method. The [place] catheter was then withdrawn and right heart pressures recorded on pullback. Left ventricular angiography was then performed following which a pigtail catheter was withdrawn across the aortic valve and transaortic pressures recorded. Selective left and right coronary angiography was then performed. The angiograms were reviewed. FINDINGS: HEMODYNAMICS: Mean right atrial pressure was 5. Right ventricular pressure was 40/7. Pulmonary artery pressure was 45/20. Mean pulmonary artery wedge pressure was 12. Left ventricular end-diastolic pressure was 10. Ascending aortic pressure was 120/40. There was no significant pressure gradient on pullback across the aortic valve. Cardiac output was 4.02 liters per minute. MITRAL STENOSIS: Simultaneous left ventricular end diastolic and pulmonary artery wedge pressures demonstrated a mean mitral valve gradient of 5.3 mmHg. Using the Gorlin equation, mitral valve area was calculated at 1.92 square cm. CORONARY ANGIOGRAPHY: There was mild ostial narrowing of the left main coronary artery, otherwise the left main, left anterior descending and circumflex arteries were free of significant disease. The right coronary artery was a large dominant vessel. A stent was visible in the proximal to mid right coronary artery, extending all the way to near the acute margin. While the stented segment was patent with minimal in-stent restenosis, the vessel was nearly completely occluded with a greater than 99% stenosis extending from its ostium to the proximal border of the stented segment. This had the appearance of a possible proximal border stent restenosis extending retrograde to the ostium of the vessel. CORONARY ANGIOPLASTY: After review of the angiograms, ad hoc coronary intervention to the right coronary artery was recommended. We selected a #4 right Ermias guiding catheter and advanced to the right coronary ostium. A 0.014-inch guidewire was introduced, through the lesional segment and following wire placement, a 3.0 mm balloon catheter was used to predilate the stenosis. We then deployed a 3.5 x 12 mm drug-eluting stent, covering the entire lesional segment and extending to the ostium of the right coronary artery. The stent was inflated to optimal pressures. Following stenting, there was an excellent angiographic result, 0 residual stenosis and BESSIE 3 flow restored in the vessel. Procedure was well tolerated by the patient and there were no complications. CONCLUSION: 1. Normal right and left heart filling pressures, mild pulmonary hypertension. 2. Mild mitral stenosis with a mean mitral valve gradient of 5.3, mitral valve area of 1.92 square cm. 3. Single vessel coronary artery disease, with greater than 99% stenosis of the proximal right coronary artery, extending from the ostium of the vessel. 4. Ischemic cardiomyopathy, with mild to moderate left ventricular systolic dysfunction, ejection fraction of 35-40%. 5. Successful ad hoc angioplasty and stenting of the ostial right coronary occlusion, excellent angiographic result following a 3.5 mm drug-eluting stent. 6. Sedation time, start 11:20, end 12:19. The patient will be recommended for aggressive risk factor modification, medical therapy and conservative management of mild mitral stenosis. [facility]# [id number] BABATUNDE/LETICIA
[2018-12-11] MEDS ORDERED: NACL 0.9% 1000 ML 1,000 ML IV SCH (14:00)
--- NOTE | 2018-12-11 14:57 | Progress Note ---
Assessment and Plan 83 y/o female with bilateral pleural effusion, right > left 1. Transudative effusion most likely, awaiting protein, still pending. 2. mild pulm HTN, seen on scanned in echo, Wedge was 12 and LVEDP was 10. 3. Suggest continued diuretic therapy. 4. No further suggestions from a pulmonary standpoint. No objection to discharge. Subjective Date of service: 12/11/18 Principal diagnosis: pl effusion Interval history: had right heart cath today. Per note mild pulm HTN but also has systolic heart failure with an EF of 35-40. this is worse compared to Echo that is scanned in. Normal coronaries. Objective Vital Signs - 12hr 12/11/18 12/11/18 12/11/18 03:08 03:10 03:45 Temperature 97.6 F Pulse Rate 65 66 Pulse Rate [ Anterior Bilateral Throughout] Pulse Rate [ Bilateral] Pulse Rate [ Posterior Bilateral Throughout] Respiratory 20 18 Rate Respiratory Rate [Anterior Bilateral Throughout] Respiratory Rate [Bilateral ] Respiratory Rate [Posterior Bilateral Throughout] Blood Pressure 122/55 Blood Pressure [Left] O2 Sat by Pulse 98 91 Oximetry 12/11/18 12/11/18 12/11/18 07:50 07:55 10:30 Temperature 97.7 F Pulse Rate 75 Pulse Rate [ 78 Anterior Bilateral Throughout] Pulse Rate [ 82 Bilateral] Pulse Rate [ 80 Posterior Bilateral Throughout] Respiratory 20 Rate Respiratory 18 Rate [Anterior Bilateral Throughout] Respiratory 18 Rate [Bilateral ] Respiratory 18 Rate [Posterior Bilateral Throughout] Blood Pressure 139/55 Blood Pressure [Left] O2 Sat by Pulse 91 91 Oximetry 12/11/18 12/11/18 12/11/18 10:39 12:47 13:00 Temperature 98.3 F 97.9 F Pulse Rate 83 84 85 Pulse Rate [ Anterior Bilateral Throughout] Pulse Rate [ Bilateral] Pulse Rate [ Posterior Bilateral Throughout] Respiratory 18 20 24 Rate Respiratory Rate [Anterior Bilateral Throughout] Respiratory Rate [Bilateral ] Respiratory Rate [Posterior Bilateral Throughout] Blood Pressure 121/49 115/46 Blood Pressure 143/59 [Left] O2 Sat by Pulse 93 92 91 Oximetry 12/11/18 12/11/18 12/11/18 13:15 13:30 14:00 Temperature Pulse Rate 83 82 73 Pulse Rate [ Anterior Bilateral Throughout] Pulse Rate [ Bilateral] Pulse Rate [ Posterior Bilateral Throughout] Respiratory 20 15 20 Rate Respiratory Rate [Anterior Bilateral Throughout] Respiratory Rate [Bilateral ] Respiratory Rate [Posterior Bilateral Throughout] Blood Pressure 112/47 126/51 128/53 Blood Pressure [Left] O2 Sat by Pulse 93 93 96 Oximetry 12/11/18 12/11/18 14:04 14:34 Temperature Pulse Rate 74 78 Pulse Rate [ Anterior Bilateral Throughout] Pulse Rate [ Bilateral] Pulse Rate [ Posterior Bilateral Throughout] Respiratory 18 Rate Respiratory Rate [Anterior Bilateral Throughout] Respiratory Rate [Bilateral ] Respiratory Rate [Posterior Bilateral Throughout] Blood Pressure 116/48 Blood Pressure [Left] O2 Sat by Pulse 95 Oximetry Constitutional: alert Eyes: non-icteric ENT: oropharynx dry Neck: supple Effort: normal Ascultation: Bilateral: clear (no wheeze ), diminished breath sounds (absent bs bases ) Percussion: Bilateral: dull (bases) Cardiovascular: irregular rhythm, murmur noted (hi pitched holosys) Gastrointestinal: soft Integumentary: normal Extremities: no edema Neurologic: normal mental status CBC and BMP: 12/11/18 04:02 12/11/18 04:02 ABG, PT/INR, D-dimer: PT/INR, D-dimer PT 14.1 Sec. (12.2-14.9) 12/11/18 04:02 INR 1.12 (0.87-1.13) 12/11/18 04:02 Abnormal lab findings: Abnormal Labs 11/29/18 11/29/18 11/29/18 02:35 03:31 03:31 WBC 16.1 H Hgb 14.6 H Hct 44.2 H Lymph % (Auto) 9.4 L [place] # 0.9 H Seg Neutrophils % 84.2 H Seg Neutrophils # 13.6 H PT INR Chloride Carbon Dioxide BUN 30 H Creatinine Glucose 147 H POC Glucose AST 51 H ALT CK-MB (CK-2) Rel Index Troponin T 0.099 H NT-Pro-B Natriuret Pep 45209 H Total Protein Albumin 3.5 L LDL Cholesterol Direct HDL Cholesterol Urine WBC (Auto) > 182.0 H 11/29/18 11/29/18 11/29/18 07:48 12:09 12:09 WBC Hgb Hct Lymph % (Auto) [place] # Seg Neutrophils % Seg Neutrophils # PT INR Chloride Carbon Dioxide BUN Creatinine Glucose POC Glucose 143 H 117 H AST ALT CK-MB (CK-2) Rel Index 7.3 H Troponin T 0.094 H NT-Pro-B Natriuret Pep Total Protein Albumin LDL Cholesterol Direct HDL Cholesterol Urine WBC (Auto) 11/29/18 11/29/18 11/29/18 16:47 18:01 21:01 WBC Hgb Hct Lymph % (Auto) [place] # Seg Neutrophils % Seg Neutrophils # PT INR Chloride Carbon Dioxide BUN Creatinine Glucose POC Glucose 142 H 226 H AST ALT CK-MB (CK-2) Rel Index 6.6 H Troponin T 0.086 H NT-Pro-B Natriuret Pep Total Protein Albumin LDL Cholesterol Direct 33 L HDL Cholesterol 34 L Urine WBC (Auto) 11/30/18 11/30/18 11/30/18 03:17 07:56 11:44 WBC Hgb Hct Lymph % (Auto) [place] # Seg Neutrophils % Seg Neutrophils # PT INR Chloride Carbon Dioxide BUN Creatinine Glucose POC Glucose 163 H 205 H 221 H AST ALT CK-MB (CK-2) Rel Index Troponin T NT-Pro-B Natriuret Pep Total Protein Albumin LDL Cholesterol Direct HDL Cholesterol Urine WBC (Auto) 11/30/18 11/30/18 12/01/18 16:47 20:19 03:47 WBC 15.3 H Hgb Hct Lymph % (Auto) 9.6 L [place] # 1.0 H Seg Neutrophils % 83.3 H Seg Neutrophils # 12.8 H PT INR Chloride Carbon Dioxide BUN Creatinine Glucose POC Glucose 196 H 218 H AST ALT CK-MB (CK-2) Rel Index Troponin T NT-Pro-B Natriuret Pep Total Protein Albumin LDL Cholesterol Direct HDL Cholesterol Urine WBC (Auto) 12/01/18 12/01/18 12/01/18 03:47 08:04 11:56 WBC Hgb Hct Lymph % (Auto) [place] # Seg Neutrophils % Seg Neutrophils # PT INR Chloride Carbon Dioxide BUN 27 H Creatinine Glucose 190 H POC Glucose 212 H 310 H AST ALT CK-MB (CK-2) Rel Index Troponin T NT-Pro-B Natriuret Pep Total Protein Albumin LDL Cholesterol Direct HDL Cholesterol Urine WBC (Auto) 12/01/18 12/01/18 12/02/18 16:32 21:51 07:54 WBC Hgb Hct Lymph % (Auto) [place] # Seg Neutrophils % Seg Neutrophils # PT INR Chloride Carbon Dioxide BUN Creatinine Glucose POC Glucose 278 H 158 H 175 H AST ALT CK-MB (CK-2) Rel Index Troponin T NT-Pro-B Natriuret Pep Total Protein Albumin LDL Cholesterol Direct HDL Cholesterol Urine WBC (Auto) 12/02/18 12/02/18 12/02/18 11:34 16:46 18:41 WBC Hgb Hct Lymph % (Auto) [place] # Seg Neutrophils % Seg Neutrophils # PT INR Chloride Carbon Dioxide BUN Creatinine Glucose POC Glucose 271 H 178 H 248 H AST ALT CK-MB (CK-2) Rel Index Troponin T NT-Pro-B Natriuret Pep Total Protein Albumin LDL Cholesterol Direct HDL Cholesterol Urine WBC (Auto) 12/02/18 12/03/18 12/03/18 20:42 07:33 12:54 WBC Hgb Hct Lymph % (Auto) [place] # Seg Neutrophils % Seg Neutrophils # PT INR Chloride Carbon Dioxide BUN Creatinine Glucose POC Glucose 212 H 141 H 228 H AST ALT CK-MB (CK-2) Rel Index Troponin T NT-Pro-B Natriuret Pep Total Protein Albumin LDL Cholesterol Direct HDL Cholesterol Urine WBC (Auto) 12/03/18 12/03/18 12/04/18 16:49 22:48 07:39 WBC Hgb Hct Lymph % (Auto) [place] # Seg Neutrophils % Seg Neutrophils # PT INR Chloride Carbon Dioxide BUN Creatinine Glucose POC Glucose 207 H 217 H 155 H AST ALT CK-MB (CK-2) Rel Index Troponin T NT-Pro-B Natriuret Pep Total Protein Albumin LDL Cholesterol Direct HDL Cholesterol Urine WBC (Auto) 12/04/18 12/04/18 12/04/18 11:13 13:06 13:06 WBC Hgb Hct Lymph % (Auto) [place] # Seg Neutrophils % Seg Neutrophils # PT 15.6 H INR 1.27 H Chloride 95.2 L Carbon Dioxide 35 H D BUN 32 H Creatinine Glucose 292 H POC Glucose 281 H AST ALT CK-MB (CK-2) Rel Index Troponin T NT-Pro-B Natriuret Pep Total Protein Albumin LDL Cholesterol Direct HDL Cholesterol Urine WBC (Auto) 12/04/18 12/04/18 12/05/18 15:51 20:56 07:21 WBC Hgb Hct Lymph % (Auto) [place] # Seg Neutrophils % Seg Neutrophils # PT INR Chloride Carbon Dioxide BUN Creatinine Glucose POC Glucose 234 H 285 H 149 H AST ALT CK-MB (CK-2) Rel Index Troponin T NT-Pro-B Natriuret Pep Total Protein Albumin LDL Cholesterol Direct HDL Cholesterol Urine WBC (Auto) 12/05/18 12/05/18 12/05/18 12:39 16:38 20:35 WBC Hgb Hct Lymph % (Auto) [place] # Seg Neutrophils % Seg Neutrophils # PT INR Chloride Carbon Dioxide BUN Creatinine Glucose POC Glucose 326 H 210 H 145 H AST ALT CK-MB (CK-2) Rel Index Troponin T NT-Pro-B Natriuret Pep Total Protein Albumin LDL Cholesterol Direct HDL Cholesterol Urine WBC (Auto) 12/06/18 12/06/18 12/06/18 08:09 11:05 12:39 WBC Hgb Hct Lymph % (Auto) [place] # Seg Neutrophils % Seg Neutrophils # PT INR Chloride 96.1 L Carbon Dioxide 35 H BUN 35 H Creatinine Glucose 210 H POC Glucose 148 H 197 H AST ALT CK-MB (CK-2) Rel Index Troponin T NT-Pro-B Natriuret Pep Total Protein Albumin LDL Cholesterol Direct HDL Cholesterol Urine WBC (Auto) 12/06/18 12/06/18 12/07/18 16:59 21:12 07:26 WBC Hgb Hct Lymph % (Auto) [place] # Seg Neutrophils % Seg Neutrophils # PT INR Chloride Carbon Dioxide BUN Creatinine Glucose POC Glucose 224 H 230 H 151 H AST ALT CK-MB (CK-2) Rel Index Troponin T NT-Pro-B Natriuret Pep Total Protein Albumin LDL Cholesterol Direct HDL Cholesterol Urine WBC (Auto) 12/07/18 12/07/18 12/07/18 12:07 16:03 21:30 WBC Hgb Hct Lymph % (Auto) [place] # Seg Neutrophils % Seg Neutrophils # PT INR Chloride Carbon Dioxide BUN Creatinine Glucose POC Glucose 275 H 270 H 224 H AST ALT CK-MB (CK-2) Rel Index Troponin T NT-Pro-B Natriuret Pep Total Protein Albumin LDL Cholesterol Direct HDL Cholesterol Urine WBC (Auto) 12/08/18 12/08/18 12/08/18 05:33 05:33 08:32 WBC 12.0 H Hgb Hct Lymph % (Auto) 11.2 L [place] # Seg Neutrophils % 80.2 H Seg Neutrophils # 9.6 H PT INR Chloride 97.5 L Carbon Dioxide 36 H BUN 38 H Creatinine Glucose 151 H POC Glucose 147 H AST 67 H ALT 59 H CK-MB (CK-2) Rel Index Troponin T NT-Pro-B Natriuret Pep Total Protein 5.8 L Albumin 2.4 L LDL Cholesterol Direct HDL Cholesterol Urine WBC (Auto) 12/08/18 12/08/18 12/09/18 17:40 21:14 08:28 WBC Hgb Hct Lymph % (Auto) [place] # Seg Neutrophils % Seg Neutrophils # PT INR Chloride Carbon Dioxide BUN Creatinine Glucose POC Glucose 196 H 236 H 170 H AST ALT CK-MB (CK-2) Rel Index Troponin T NT-Pro-B Natriuret Pep Total Protein Albumin LDL Cholesterol Direct HDL Cholesterol Urine WBC (Auto) 12/09/18 12/09/18 12/09/18 11:23 16:25 20:49 WBC Hgb Hct Lymph % (Auto) [place] # Seg Neutrophils % Seg Neutrophils # PT INR Chloride Carbon Dioxide BUN Creatinine Glucose POC Glucose 147 H 203 H 318 H AST ALT CK-MB (CK-2) Rel Index Troponin T NT-Pro-B Natriuret Pep Total Protein Albumin LDL Cholesterol Direct HDL Cholesterol Urine WBC (Auto) 12/10/18 12/10/18 12/10/18 04:17 04:17 07:44 WBC Hgb Hct Lymph % (Auto) [place] # Seg Neutrophils % 72.9 H Seg Neutrophils # PT INR Chloride Carbon Dioxide 35 H BUN 30 H Creatinine 0.6 L Glucose 145 H POC Glucose 117 H AST 60 H ALT CK-MB (CK-2) Rel Index Troponin T NT-Pro-B Natriuret Pep Total Protein 5.6 L Albumin 2.2 L LDL Cholesterol Direct HDL Cholesterol Urine WBC (Auto) 12/10/18 12/10/18 12/10/18 11:47 16:42 20:48 WBC Hgb Hct Lymph % (Auto) [place] # Seg Neutrophils % Seg Neutrophils # PT INR Chloride Carbon Dioxide BUN Creatinine Glucose POC Glucose 254 H 284 H 309 H AST ALT CK-MB (CK-2) Rel Index Troponin T NT-Pro-B Natriuret Pep Total Protein Albumin LDL Cholesterol Direct HDL Cholesterol Urine WBC (Auto) 12/11/18 12/11/18 12/11/18 04:02 04:02 04:02 WBC 11.4 H Hgb Hct Lymph % (Auto) [place] # Seg Neutrophils % 72.2 H Seg Neutrophils # 8.3 H PT INR Chloride 97.4 L 97.2 L Carbon Dioxide 34 H 34 H BUN 25 H 25 H Creatinine 0.6 L 0.6 L Glucose 198 H 201 H POC Glucose AST ALT CK-MB (CK-2) Rel Index Troponin T NT-Pro-B Natriuret Pep Total Protein Albumin LDL Cholesterol Direct HDL Cholesterol Urine WBC (Auto) 12/11/18 05:50 WBC Hgb Hct Lymph % (Auto) [place] # Seg Neutrophils % Seg Neutrophils # PT INR Chloride Carbon Dioxide BUN Creatinine Glucose POC Glucose 193 H AST ALT CK-MB (CK-2) Rel Index Troponin T NT-Pro-B Natriuret Pep Total Protein Albumin LDL Cholesterol Direct HDL Cholesterol Urine WBC (Auto)
[2018-12-11] MEDS: HEPARIN SUB-Q SCH ×2 (18:32→21:40)
[2018-12-11] MEDS: HALFPRIN EC PO SCH (18:32)
[2018-12-11] MEDS: LASIX PO SCH (18:33)
[2018-12-11] MEDS: LOPRESSOR PO SCH ×3 (18:33→21:40)
[2018-12-11] MEDS: IMDUR PO SCH (18:33)
[2018-12-11] MEDS: THERAGRAN Tab PO SCH (18:33)
[2018-12-11] MEDS: K-DUR PO SCH (18:33)
[2018-12-11] MEDS: ZYLOPRIM PO SCH (18:33)
[2018-12-11] MEDS: MUCINEX ER PO SCH (21:39)
[2018-12-11] MEDS: MELATONIN PO SCH (21:41)
[2018-12-11] MEDS ORDERED: LANTUS SUB-Q SCH (22:00)
[2018-12-12] MEDS: DUONEB *Not for PRN Use IH SCH ×3 (01:14→16:20)
[2018-12-12] MEDS: LASIX PO SCH (06:20)
[2018-12-12] MEDS: SYNTHROID PO SCH (06:20)
--- NOTE | 2018-12-12 08:08 | XRay Report ---
CHEST 1 VIEW INDICATION: post pci. Recent coronary artery catheterization COMPARISON: 12/08/2018 FINDINGS: Support devices: 2-lead pacemaker device remains in good position. Heart: Mild cardiomegaly has resolved. Heart size is within normal limits. Lungs/Pleura: Pulmonary venous congestion has decreased by 50%. There is partial atelectasis in the r ight middle lobe which is new. Otherwise the lungs are clear. Small left pleural effusion has resolve d. No pneumothorax. Additional findings: None. IMPRESSION: Decreased cardiomegaly and pulmonary venous congestion. Partial atelectasis in the right middle lobe has developed. No pneumothorax. Signer Name: Keyur Woodson Jr, MD Signed: 12/12/2018 8:04 AM Workstation Name: [id number]
[2018-12-12] MEDS: HumuLIN R SUB-Q SCH ×2 (08:13→13:14)
[2018-12-12] MEDS: IMDUR PO SCH (09:25)
[2018-12-12] MEDS: HALFPRIN EC PO SCH (09:25)
[2018-12-12] MEDS: K-DUR PO SCH (09:25)
[2018-12-12] MEDS: MUCINEX ER PO SCH (09:25)
[2018-12-12] MEDS: THERAGRAN Tab PO SCH (09:25)
[2018-12-12] MEDS: ZYLOPRIM PO SCH (09:26)
[2018-12-12] MEDS: HEPARIN SUB-Q SCH (09:26)
[2018-12-12] MEDS: LOPRESSOR PO SCH (09:26)
--- NOTE | 2018-12-12 09:55 | Progress Note ---
Assessment and Plan Pleural effusion Congestive heart failure Mitral valve disease, rheumatic Bilateral pleural effusion may be likely due to heart failure An echocardiogram done during this admission shows a calcified mitral valve with at least moderate mitral stenosis, mean transmitral gradient of 10. In addition, there was severe mitral regurgitation. Left ventricle systolic function well- preserved, ejection fraction 50-55%. There was moderate pulmonary hypertension with a pulmonary artery systolic pressure of 44. A right heart catheterization, followed by coronary angioplasty and stenting of a greater than 99% ostial stenosis of the right coronary artery. Findings on right heart catheterization were normal right and left filling pressures, mild pulmonary hypertension and mild mitral stenosis with a mean mitral gradient of 5.3, area 1.9. Left ventricular systolic ejection fraction was mildly impaired, 35-40%. Recommendation: Continue medical therapy for coronary artery disease and ischemic cardiomyopathy, including dual oral antiplatelet therapy post drug-eluting stent deployment. 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 Patient will be stable for cardiac discharge. Patient will follow up with Dr Elvin Garcia as scheduled December 23. Subjective Date of service: 12/12/18 Principal diagnosis: pl effusion Interval history: Patient has no complaints. She reports she is feeling better and wants to go home. No hematoma of right groin cardiac cath site. Objective Vital Signs Temp Pulse Pulse Resp Resp BP BP 12/12/18 09:26 70 123/52 12/12/18 09:25 70 123/52 12/12/18 08:15 98.2 F 70 18 123/52 12/12/18 05:05 97.6 F 12/12/18 05:03 70 18 138/61 12/12/18 01:32 12/12/18 01:27 65 12/12/18 01:24 63 18 12/12/18 01:03 65 12/11/18 23:55 97.5 F L 12/11/18 23:53 65 20 101/46 12/11/18 23:00 66 18 113/49 12/11/18 22:10 65 18 112/48 12/11/18 21:40 73 116/47 12/11/18 21:00 65 20 101/46 12/11/18 20:53 12/11/18 20:50 70 16 12/11/18 20:08 98.1 F 12/11/18 20:06 73 20 116/47 12/11/18 20:00 73 20 116/47 12/11/18 18:33 80 141/51 12/11/18 18:10 97.5 F L 80 18 141/51 12/11/18 15:47 81 20 147/60 12/11/18 14:53 78 16 116/56 12/11/18 14:34 78 18 116/48 12/11/18 14:04 74 12/11/18 14:00 73 20 128/53 12/11/18 13:30 82 15 126/51 12/11/18 13:15 83 20 112/47 12/11/18 13:00 85 24 115/46 12/11/18 12:47 97.9 F 84 20 121/49 12/11/18 10:39 98.3 F 83 18 143/59 12/11/18 10:30 Pulse Ox 12/12/18 09:26 12/12/18 09:25 12/12/18 08:15 95 12/12/18 05:05 12/12/18 05:03 95 12/12/18 01:32 99 12/12/18 01:27 12/12/18 01:24 12/12/18 01:03 99 12/11/18 23:55 12/11/18 23:53 94 12/11/18 23:00 99 12/11/18 22:10 99 12/11/18 21:40 12/11/18 21:00 99 12/11/18 20:53 94 12/11/18 20:50 12/11/18 20:08 12/11/18 20:06 94 12/11/18 20:00 99 12/11/18 18:33 12/11/18 18:10 96 12/11/18 15:47 97 12/11/18 14:53 95 12/11/18 14:34 95 12/11/18 14:04 12/11/18 14:00 96 12/11/18 13:30 93 12/11/18 13:15 93 12/11/18 13:00 91 12/11/18 12:47 92 12/11/18 10:39 93 12/11/18 10:30 91 - Physical Examination General: No Apparent Distress HEENT: Positive: PERRL Neck: Positive: trachea midline Cardiac: Positive: Other (AV paced) Lungs: Positive: Decreased Breath Sounds Neuro: Positive: Grossly Intact Abdomen: Positive: Soft Incision: Cardiac Cath Site (soft, no hematoma) Extremities: Absent: edema
[2018-12-12] MEDS ORDERED: PLAVIX PO SCH (10:00)
--- NOTE | 2018-12-12 14:20 | Discharge Summary ---
Providers - Providers Date of Admission: 11/29/18 07:54 Date of discharge: 12/12/18 Attending physician: KAYLENE SALEEM 11/29/18 06:13 Consult to Physician [CONS] Routine Comment: Consulting Provider: GAGAN SARAVIA Physician Instructions: Reason For Exam: CHF WITH ELEVATED TROPONIN LEVEL 11/30/18 05:27 Consult to Wound/ET Nurse [CONS] Routine Reason For Exam: wound eval 11/30/18 16:34 Consult to Physician [CONS] Routine Comment: Consulting Provider: VICKI ORTIZ Physician Instructions: Reason For Exam: pleural effusions 12/01/18 11:18 Occupational Therapy Evaluate and Treat [CONS] Routine Comment: Reason For Exam: weakness Physical Therapy Evaluation and Treat [CONS] Routine Comment: Reason For Exam: weakness 12/01/18 15:09 Consult to Mental Health [CONS] Routine Reason For Exam: behavioral disturbance Place consult to:: the medical center Notified:: yes 12/11/18 Consult to Cardiac Rehabilitation [CONS] Routine Reason For Exam: post pci Primary care physician: PHILL TITUS Hospitalization Reason for admission: Bilateral Pleural effusion, Acute diastolic HF , Elevated troponin Condition: Fair Pertinent studies: Echocardiogram done during this admission shows a calcified mitral valve with at least moderate mitral stenosis, mean transmitral gradient of 10. In addition, there was severe mitral regurgitation. Left ventricle systolic function well- preserved, ejection fraction 50-55%. There was moderate pulmonary hypertension with a pulmonary artery systolic pressure of 44. Procedures: -US-guided RT thoracentesis with 1100 mls of pleural fluid drained -Right heart catheterization with coronary angioplasty and stenting of a greater than 99% ostial stenosis of the right coronary artery. Findings on right heart catheterization were normal right and left filling pressures, mild pulmonary hypertension and mild mitral stenosis with a mean mitral gradient of 5.3, area 1.9. Left ventricular systolic ejection fraction was mildly impaired, 35-40%. Hospital course: Final discharge diagnosis: Sepsis probably secondary to UTI, present on admission NSTEMI, likely present on admission Bilateral Pleural effusion due to acute HF Acute on chronic diastolic HF, now with new acute systolic HF Moderate mitral valve stenosis, rheumatic Acute on chronic hypoxic respiratory failure, stable Mild pulmonary hypertension Transaminitis Hypothyroidism Hypertension IDDM2 HLD COPD Dementia Physical deconditioning Hospital course: Pt was admitted and placed on IV antibiotic and CHF protocol in addition to 02 supplementation. For her other comorbidities, she was continued on her home meds. For the elevated troponin and valvular dx, cardiology recommended further evaluation with LT and RT cardiac catheterization. However, she was volume overloaded and needed few days of aggressive diuresis before proceeding with the procedures due to her high risk for complications, which contributed to her long hospital stay. Pulmonology was consulted for the pleural effusion and thoracentesis was recommended. US-guided RT thoracentesis was later performed without any complications. Subsequently, she improved clinically and RT cardiac catheterization with coronary angioplasty and stenting (drug-eluting stent) of a greater than 99% ostial stenosis of the right coronary artery was performed without any complications. Post-procedure, she was monitored without any adverse events and was later cleared by cardiology for discharge with clinic follow-up. Disposition: DC/TX- HOME UNDER HOME [facility] Time spent for discharge: 45 minutes Core Measure Documentation - Palliative Care Palliative Care/ Comfort Measures: Not Applicable - Core Measures Any of the following diagnoses?: acute OK, heart failure - Acute [place] Discharge Requirements Aspirin at discharge: Yes NEVILLE/ARB for LVSD if EF <40%: Yes Beta margarita at discharge: Yes Statin for LDL = or >100 mg/dl on DC: Yes - Heart Failure Discharge Requirements NEVILLE/ARB for LVSD if EF <40%: Yes Beta margarita at discharge: Yes Exam - Constitutional Vitals: Temp Pulse Resp BP Pulse Ox 98.2 F 73 14 123/52 96 12/12/18 08:15 12/12/18 11:00 12/12/18 11:00 12/12/18 09:26 12/12/18 11:00 General appearance: Present: no acute distress, well-nourished - EENT Eyes: Present: PERRL, EOM intact ENT: hearing intact, clear oral mucosa - Neck Neck: Present: supple, normal ROM - Respiratory Respiratory effort: normal Respiratory: bilateral: CTA - Cardiovascular Rhythm: regular Heart Sounds: Present: S1 & S2. Absent: rub, click - Extremities Extremities: pulses symmetrical, No edema - Abdominal General gastrointestinal: Present: soft, non-tender, non-distended, normal bowel sounds Female genitourinary: Present: deferred - Integumentary Integumentary: Present: clear, warm, dry - Musculoskeletal Musculoskeletal: gait normal, strength equal bilaterally - Psychiatric Psychiatric: appropriate mood/affect - Neurologic Neurologic: CNII-XII intact, moves all extremities Plan Follow up with: ANDREW TORRES MD [Staff Physician] - 7 Days ROSHOLT SHELLIE BLANCO MD [Referring] - 3-5 Days Prescriptions: Losartan [Cozaar] 25 mg PO QPM #30 tablet ISOSORBIDE MONOnitrate [Imdur ER] 30 mg PO QDAY #30 tablet Furosemide [Lasix TAB] 40 mg PO DAILY #40 tablet Metoprolol [Lopressor TAB] 50 mg PO BID #60 tablet guaiFENesin ER [Mucinex ER] 600 mg PO BID #10 tablet ALBUTEROL Inhaler (OR & NICU) [ProAir HFA Inhaler] 2 puff IH Q6H PRN #1 inha PRN Reason: Shortness Of Breath
[2018-12-12 14:38] VITALS: BP 144/63
--- NOTE | 2018-12-12 14:46 | Progress Note ---
Assessment and Plan 83 y/o female with bilateral pleural effusion, right > left 1. Transudative effusion most likely, awaiting protein, still pending. 2. mild pulm HTN, seen on scanned in echo, Wedge was 12 and LVEDP was 10. 3. Suggest continued diuretic therapy. 4. No further suggestions from a pulmonary standpoint. No objection to discharge. 5. Please assess if patient is on home oxygen. If not she will need a walk test prior to discharge. Subjective Date of service: 12/12/18 Principal diagnosis: pl effusion Interval history: No acute events. Being discharged today. patient remains on 2 liters nC Objective Vital Signs - 12hr 12/12/18 12/12/18 12/12/18 05:03 05:05 08:15 Temperature 97.6 F 98.2 F Pulse Rate 70 70 Pulse Rate [ Anterior Bilateral Throughout] Pulse Rate [ Posterior Bilateral Throughout] Respiratory 18 18 Rate Respiratory Rate [Anterior Bilateral Throughout] Respiratory Rate [Posterior Bilateral Throughout] Blood Pressure 138/61 123/52 O2 Sat by Pulse 95 95 Oximetry 12/12/18 12/12/18 12/12/18 09:25 09:26 11:00 Temperature Pulse Rate 70 70 Pulse Rate [ 73 Anterior Bilateral Throughout] Pulse Rate [ 74 Posterior Bilateral Throughout] Respiratory Rate Respiratory 14 Rate [Anterior Bilateral Throughout] Respiratory 19 Rate [Posterior Bilateral Throughout] Blood Pressure 123/52 123/52 O2 Sat by Pulse 96 Oximetry 12/12/18 13:02 Temperature 97.5 F L Pulse Rate 75 Pulse Rate [ Anterior Bilateral Throughout] Pulse Rate [ Posterior Bilateral Throughout] Respiratory 16 Rate Respiratory Rate [Anterior Bilateral Throughout] Respiratory Rate [Posterior Bilateral Throughout] Blood Pressure 144/63 O2 Sat by Pulse 99 Oximetry Constitutional: alert Eyes: non-icteric ENT: oropharynx dry Neck: supple Effort: normal Ascultation: Bilateral: clear (no wheeze ), diminished breath sounds (absent bs bases ) Percussion: Bilateral: dull (bases) Cardiovascular: irregular rhythm, murmur noted (hi pitched holosys) Gastrointestinal: soft Integumentary: normal Extremities: no edema Neurologic: normal mental status CBC and BMP: 12/11/18 04:02 12/11/18 04:02 ABG, PT/INR, D-dimer: PT/INR, D-dimer PT 14.1 Sec. (12.2-14.9) 12/11/18 04:02 INR 1.12 (0.87-1.13) 12/11/18 04:02 Abnormal lab findings: Abnormal Labs 11/29/18 11/29/18 11/29/18 02:35 03:31 03:31 WBC 16.1 H Hgb 14.6 H Hct 44.2 H Lymph % (Auto) 9.4 L Posey # 0.9 H Seg Neutrophils % 84.2 H Seg Neutrophils # 13.6 H PT INR Activated Clotting Time Chloride Carbon Dioxide BUN 30 H Creatinine Glucose 147 H POC Glucose AST 51 H ALT CK-MB (CK-2) Rel Index Troponin T 0.099 H NT-Pro-B Natriuret Pep 18830 H Total Protein Albumin 3.5 L LDL Cholesterol Direct HDL Cholesterol Urine WBC (Auto) > 182.0 H 11/29/18 11/29/18 11/29/18 07:48 12:09 12:09 WBC Hgb Hct Lymph % (Auto) Posey # Seg Neutrophils % Seg Neutrophils # PT INR Activated Clotting Time Chloride Carbon Dioxide BUN Creatinine Glucose POC Glucose 143 H 117 H AST ALT CK-MB (CK-2) Rel Index 7.3 H Troponin T 0.094 H NT-Pro-B Natriuret Pep Total Protein Albumin LDL Cholesterol Direct HDL Cholesterol Urine WBC (Auto) 11/29/18 11/29/18 11/29/18 16:47 18:01 21:01 WBC Hgb Hct Lymph % (Auto) Posey # Seg Neutrophils % Seg Neutrophils # PT INR Activated Clotting Time Chloride Carbon Dioxide BUN Creatinine Glucose POC Glucose 142 H 226 H AST ALT CK-MB (CK-2) Rel Index 6.6 H Troponin T 0.086 H NT-Pro-B Natriuret Pep Total Protein Albumin LDL Cholesterol Direct 33 L HDL Cholesterol 34 L Urine WBC (Auto) 11/30/18 11/30/18 11/30/18 03:17 07:56 11:44 WBC Hgb Hct Lymph % (Auto) Posey # Seg Neutrophils % Seg Neutrophils # PT INR Activated Clotting Time Chloride Carbon Dioxide BUN Creatinine Glucose POC Glucose 163 H 205 H 221 H AST ALT CK-MB (CK-2) Rel Index Troponin T NT-Pro-B Natriuret Pep Total Protein Albumin LDL Cholesterol Direct HDL Cholesterol Urine WBC (Auto) 11/30/18 11/30/18 12/01/18 16:47 20:19 03:47 WBC 15.3 H Hgb Hct Lymph % (Auto) 9.6 L Posey # 1.0 H Seg Neutrophils % 83.3 H Seg Neutrophils # 12.8 H PT INR Activated Clotting Time Chloride Carbon Dioxide BUN Creatinine Glucose POC Glucose 196 H 218 H AST ALT CK-MB (CK-2) Rel Index Troponin T NT-Pro-B Natriuret Pep Total Protein Albumin LDL Cholesterol Direct HDL Cholesterol Urine WBC (Auto) 12/01/18 12/01/18 12/01/18 03:47 08:04 11:56 WBC Hgb Hct Lymph % (Auto) Posey # Seg Neutrophils % Seg Neutrophils # PT INR Activated Clotting Time Chloride Carbon Dioxide BUN 27 H Creatinine Glucose 190 H POC Glucose 212 H 310 H AST ALT CK-MB (CK-2) Rel Index Troponin T NT-Pro-B Natriuret Pep Total Protein Albumin LDL Cholesterol Direct HDL Cholesterol Urine WBC (Auto) 12/01/18 12/01/18 12/02/18 16:32 21:51 07:54 WBC Hgb Hct Lymph % (Auto) Posey # Seg Neutrophils % Seg Neutrophils # PT INR Activated Clotting Time Chloride Carbon Dioxide BUN Creatinine Glucose POC Glucose 278 H 158 H 175 H AST ALT CK-MB (CK-2) Rel Index Troponin T NT-Pro-B Natriuret Pep Total Protein Albumin LDL Cholesterol Direct HDL Cholesterol Urine WBC (Auto) 12/02/18 12/02/18 12/02/18 11:34 16:46 18:41 WBC Hgb Hct Lymph % (Auto) Posey # Seg Neutrophils % Seg Neutrophils # PT INR Activated Clotting Time Chloride Carbon Dioxide BUN Creatinine Glucose POC Glucose 271 H 178 H 248 H AST ALT CK-MB (CK-2) Rel Index Troponin T NT-Pro-B Natriuret Pep Total Protein Albumin LDL Cholesterol Direct HDL Cholesterol Urine WBC (Auto) 12/02/18 12/03/18 12/03/18 20:42 07:33 12:54 WBC Hgb Hct Lymph % (Auto) Posey # Seg Neutrophils % Seg Neutrophils # PT INR Activated Clotting Time Chloride Carbon Dioxide BUN Creatinine Glucose POC Glucose 212 H 141 H 228 H AST ALT CK-MB (CK-2) Rel Index Troponin T NT-Pro-B Natriuret Pep Total Protein Albumin LDL Cholesterol Direct HDL Cholesterol Urine WBC (Auto) 12/03/18 12/03/18 12/04/18 16:49 22:48 07:39 WBC Hgb Hct Lymph % (Auto) Posey # Seg Neutrophils % Seg Neutrophils # PT INR Activated Clotting Time Chloride Carbon Dioxide BUN Creatinine Glucose POC Glucose 207 H 217 H 155 H AST ALT CK-MB (CK-2) Rel Index Troponin T NT-Pro-B Natriuret Pep Total Protein Albumin LDL Cholesterol Direct HDL Cholesterol Urine WBC (Auto) 12/04/18 12/04/18 12/04/18 11:13 13:06 13:06 WBC Hgb Hct Lymph % (Auto) Posey # Seg Neutrophils % Seg Neutrophils # PT 15.6 H INR 1.27 H Activated Clotting Time Chloride 95.2 L Carbon Dioxide 35 H D BUN 32 H Creatinine Glucose 292 H POC Glucose 281 H AST ALT CK-MB (CK-2) Rel Index Troponin T NT-Pro-B Natriuret Pep Total Protein Albumin LDL Cholesterol Direct HDL Cholesterol Urine WBC (Auto) 12/04/18 12/04/18 12/05/18 15:51 20:56 07:21 WBC Hgb Hct Lymph % (Auto) Posey # Seg Neutrophils % Seg Neutrophils # PT INR Activated Clotting Time Chloride Carbon Dioxide BUN Creatinine Glucose POC Glucose 234 H 285 H 149 H AST ALT CK-MB (CK-2) Rel Index Troponin T NT-Pro-B Natriuret Pep Total Protein Albumin LDL Cholesterol Direct HDL Cholesterol Urine WBC (Auto) 12/05/18 12/05/18 12/05/18 12:39 16:38 20:35 WBC Hgb Hct Lymph % (Auto) Posey # Seg Neutrophils % Seg Neutrophils # PT INR Activated Clotting Time Chloride Carbon Dioxide BUN Creatinine Glucose POC Glucose 326 H 210 H 145 H AST ALT CK-MB (CK-2) Rel Index Troponin T NT-Pro-B Natriuret Pep Total Protein Albumin LDL Cholesterol Direct HDL Cholesterol Urine WBC (Auto) 12/06/18 12/06/18 12/06/18 08:09 11:05 12:39 WBC Hgb Hct Lymph % (Auto) Posey # Seg Neutrophils % Seg Neutrophils # PT INR Activated Clotting Time Chloride 96.1 L Carbon Dioxide 35 H BUN 35 H Creatinine Glucose 210 H POC Glucose 148 H 197 H AST ALT CK-MB (CK-2) Rel Index Troponin T NT-Pro-B Natriuret Pep Total Protein Albumin LDL Cholesterol Direct HDL Cholesterol Urine WBC (Auto) 12/06/18 12/06/18 12/07/18 16:59 21:12 07:26 WBC Hgb Hct Lymph % (Auto) Posey # Seg Neutrophils % Seg Neutrophils # PT INR Activated Clotting Time Chloride Carbon Dioxide BUN Creatinine Glucose POC Glucose 224 H 230 H 151 H AST ALT CK-MB (CK-2) Rel Index Troponin T NT-Pro-B Natriuret Pep Total Protein Albumin LDL Cholesterol Direct HDL Cholesterol Urine WBC (Auto) 12/07/18 12/07/18 12/07/18 12:07 16:03 21:30 WBC Hgb Hct Lymph % (Auto) Posey # Seg Neutrophils % Seg Neutrophils # PT INR Activated Clotting Time Chloride Carbon Dioxide BUN Creatinine Glucose POC Glucose 275 H 270 H 224 H AST ALT CK-MB (CK-2) Rel Index Troponin T NT-Pro-B Natriuret Pep Total Protein Albumin LDL Cholesterol Direct HDL Cholesterol Urine WBC (Auto) 12/08/18 12/08/18 12/08/18 05:33 05:33 08:32 WBC 12.0 H Hgb Hct Lymph % (Auto) 11.2 L Posey # Seg Neutrophils % 80.2 H Seg Neutrophils # 9.6 H PT INR Activated Clotting Time Chloride 97.5 L Carbon Dioxide 36 H BUN 38 H Creatinine Glucose 151 H POC Glucose 147 H AST 67 H ALT 59 H CK-MB (CK-2) Rel Index Troponin T NT-Pro-B Natriuret Pep Total Protein 5.8 L Albumin 2.4 L LDL Cholesterol Direct HDL Cholesterol Urine WBC (Auto) 12/08/18 12/08/18 12/09/18 17:40 21:14 08:28 WBC Hgb Hct Lymph % (Auto) Posey # Seg Neutrophils % Seg Neutrophils # PT INR Activated Clotting Time Chloride Carbon Dioxide BUN Creatinine Glucose POC Glucose 196 H 236 H 170 H AST ALT CK-MB (CK-2) Rel Index Troponin T NT-Pro-B Natriuret Pep Total Protein Albumin LDL Cholesterol Direct HDL Cholesterol Urine WBC (Auto) 12/09/18 12/09/18 12/09/18 11:23 16:25 20:49 WBC Hgb Hct Lymph % (Auto) Posey # Seg Neutrophils % Seg Neutrophils # PT INR Activated Clotting Time Chloride Carbon Dioxide BUN Creatinine Glucose POC Glucose 147 H 203 H 318 H AST ALT CK-MB (CK-2) Rel Index Troponin T NT-Pro-B Natriuret Pep Total Protein Albumin LDL Cholesterol Direct HDL Cholesterol Urine WBC (Auto) 12/10/18 12/10/18 12/10/18 04:17 04:17 07:44 WBC Hgb Hct Lymph % (Auto) Posey # Seg Neutrophils % 72.9 H Seg Neutrophils # PT INR Activated Clotting Time Chloride Carbon Dioxide 35 H BUN 30 H Creatinine 0.6 L Glucose 145 H POC Glucose 117 H AST 60 H ALT CK-MB (CK-2) Rel Index Troponin T NT-Pro-B Natriuret Pep Total Protein 5.6 L Albumin 2.2 L LDL Cholesterol Direct HDL Cholesterol Urine WBC (Auto) 12/10/18 12/10/18 12/10/18 11:47 16:42 20:48 WBC Hgb Hct Lymph % (Auto) Posey # Seg Neutrophils % Seg Neutrophils # PT INR Activated Clotting Time Chloride Carbon Dioxide BUN Creatinine Glucose POC Glucose 254 H 284 H 309 H AST ALT CK-MB (CK-2) Rel Index Troponin T NT-Pro-B Natriuret Pep Total Protein Albumin LDL Cholesterol Direct HDL Cholesterol Urine WBC (Auto) 12/11/18 12/11/18 12/11/18 04:02 04:02 04:02 WBC 11.4 H Hgb Hct Lymph % (Auto) Posey # Seg Neutrophils % 72.2 H Seg Neutrophils # 8.3 H PT INR Activated Clotting Time Chloride 97.4 L 97.2 L Carbon Dioxide 34 H 34 H BUN 25 H 25 H Creatinine 0.6 L 0.6 L Glucose 198 H 201 H POC Glucose AST ALT CK-MB (CK-2) Rel Index Troponin T NT-Pro-B Natriuret Pep Total Protein Albumin LDL Cholesterol Direct HDL Cholesterol Urine WBC (Auto) 12/11/18 12/11/18 12/11/18 05:50 14:56 15:48 WBC Hgb Hct Lymph % (Auto) Posey # Seg Neutrophils % Seg Neutrophils # PT INR Activated Clotting Time 213 H 180 H Chloride Carbon Dioxide BUN Creatinine Glucose POC Glucose 193 H AST ALT CK-MB (CK-2) Rel Index Troponin T NT-Pro-B Natriuret Pep Total Protein Albumin LDL Cholesterol Direct HDL Cholesterol Urine WBC (Auto) 12/11/18 12/11/18 12/11/18 16:02 16:43 18:21 WBC Hgb Hct Lymph % (Auto) Posey # Seg Neutrophils % Seg Neutrophils # PT INR Activated Clotting Time 169 H Chloride Carbon Dioxide BUN Creatinine Glucose POC Glucose 175 H 189 H AST ALT CK-MB (CK-2) Rel Index Troponin T NT-Pro-B Natriuret Pep Total Protein Albumin LDL Cholesterol Direct HDL Cholesterol Urine WBC (Auto) 12/11/18 12/12/18 12/12/18 21:06 07:34 12:43 WBC Hgb Hct Lymph % (Auto) Posey # Seg Neutrophils % Seg Neutrophils # PT INR Activated Clotting Time Chloride Carbon Dioxide BUN Creatinine Glucose POC Glucose 196 H 147 H 307 H AST ALT CK-MB (CK-2) Rel Index Troponin T NT-Pro-B Natriuret Pep Total Protein Albumin LDL Cholesterol Direct HDL Cholesterol Urine WBC (Auto)
[2018-12-15 11:25] LABS: LDH,Body Fluid 67; Total Protein,Body Fluid < 3.0 (15.0-45.0)
== END 2018-12-12 16:54 | disposition home health service (06) | DRG 853 ==
LOC: SUATTDRO 02:02 → ED 02:02 → 4A 07:54
PROVIDERS: ADMIT Internal Medicine; ATTEND Internal Medicine
PROC: 0W993ZZ Drainage of Right Pleural Cavity, Percutaneous Approach (ICD-10-PCS; 2018-12-08)
PROC: 027034Z Dilation of Coronary Artery, One Artery with Drug-eluting Intraluminal Device, Percutaneous Approach (ICD-10-PCS; principal; 2018-12-11)
PROC: 4A023N8 Measurement of Cardiac Sampling and Pressure, Bilateral, Percutaneous Approach (ICD-10-PCS; 2018-12-11)
PROC: B2111ZZ Fluoroscopy of Multiple Coronary Arteries using Low Osmolar Contrast (ICD-10-PCS; 2018-12-11)
PROC: B2151ZZ Fluoroscopy of Left Heart using Low Osmolar Contrast (ICD-10-PCS; 2018-12-11)
DX: A41.9 Sepsis, unspecified organism (principal); J96.21 Acute and chronic respiratory failure with hypoxia; I21.4 Non-ST elevation (NSTEMI) myocardial infarction; I50.43 Acute on chronic combined systolic (congestive) and diastolic (congestive) heart failure; N39.0 Urinary tract infection, site not specified; I13.0 Hypertensive heart and chronic kidney disease with heart failure and stage 1 through stage 4 chronic kidney disease, or unspecified chronic kidney disease; T82.855A Stenosis of coronary artery stent, initial encounter; M10.9 Gout, unspecified; E78.00 Pure hypercholesterolemia, unspecified; F03.90 Unspecified dementia, unspecified severity, without behavioral disturbance, psychotic disturbance, mood disturbance, and anxiety; I25.2 Old myocardial infarction; J44.9 Chronic obstructive pulmonary disease, unspecified; I25.10 Atherosclerotic heart disease of native coronary artery without angina pectoris; I09.9 Rheumatic heart disease, unspecified; I27.20 Pulmonary hypertension, unspecified; I25.5 Ischemic cardiomyopathy; Y83.8 Other surgical procedures as the cause of abnormal reaction of the patient, or of later complication, without mention of misadventure at the time of the procedure; Y92.89 Other specified places as the place of occurrence of the external cause; Z79.82 Long term (current) use of aspirin; Z95.0 Presence of cardiac pacemaker; Z79.4 Long term (current) use of insulin; Z91.040 Latex allergy status; Z86.73 Personal history of transient ischemic attack (TIA), and cerebral infarction without residual deficits
CPT/HCPCS: 32555; 36415; 70450; 71045; 71046; 76604; 80048; 80053; 80061; 81001; 82140; 82550; 82553; 82947; 82962; 83605; 83880; 84160; 84484; 85025; 85347; 85610; 87040; 87086; 87102; 88112; 88305; 88341; 88342; 89051; 92928; 93005; 93010; 93306; 93460; 94640; 94760; G0378; A9270-GY; C1725; C1769; C1874; C1887; C1894; C9600; J0696; J1200; J1630; J1644; J1815; J1940; J2250; J2405; J3010; J7040; Q9967

== ENCOUNTER 2019-03-20 07:52 | Day surgery (SDC) | payer MEDICARE ==
--- NOTE | 2019-03-20 08:51 | Anesthesia Consultation ---
Anesthesia Consult and Med Hx Date of service: 03/20/19 - Airway Anesthetic Teeth Evaluation: Partials (upper) ROM Head & Neck: Adequate Mental/Hyoid Distance: Adequate Mallampati Class: Class II Intubation Access Assessment: Probably Good - Pre-Operative Health Status ASA Pre-Surgery Classification: ASA3 Proposed Anesthetic Plan: MAC - Pulmonary Hx Smoking: No COPD: Yes - Cardiovascular System Hx Hypertension: Yes Hx Coronary Artery Disease: Yes (high cholesterol) Hx Heart Attack/AMI: Yes (2001) Hx Percutaneous Transluminal Coronary Angioplasty (PTCA): Yes (2009) Hx Cardia Arrhythmia: Yes (h/o AV block) Hx Pacemaker: Yes (Dr. Garcia) - Central Nervous System CVA: Yes (CVA (2018) ) Hx Psychiatric Problems: No - Endocrine Hx Insulin Dependent Diabetes: Yes Hx Hypothyroidism: Yes - Other Systems Hx Alcohol Use: No Hx Cancer: No
--- NOTE | 2019-03-20 08:52 | Anesthesia Day of Surgery ---
Anesthesia Day of Surgery - Day of Surgery Patient Examined: Yes Patient H&P Reviewed: Yes Patient is NPO: Yes Beta Blockers: Yes
[2019-03-20 08:54] LABS: Basophils # (Auto) 0.1 K/mm3 (0.0-0.1); Basophils % (Auto) 0.9 % (0.0-1.8); Eosinophils # (Auto) 0.4 K/mm3 (0.0-0.4); Eosinophils % (Auto) 3.1 % (0.0-4.3); Hematocrit 41.2 % (30.3-42.9); Hemoglobin 13.8 gm/dl (10.1-14.3); Lymphocytes # (Auto) 2.2 K/mm3 (1.2-5.4); Lymphocytes % (Auto) 18.2 % (13.4-35.0); Mean Corpuscular HGB Conc 34 % (30-34); Mean Corpuscular Volume 94 fl (79-97); Monocytes # (Auto) 0.8 K/mm3 (0.0-0.8); Monocytes % (Auto) 6.6 % (0.0-7.3); Platelet Count 191 K/mm3 (140-440); Red Blood Count 4.39 M/mm3 (3.65-5.03); Red Cell Distribution Width 14.1 % (13.2-15.2)
[2019-03-20] MEDS ORDERED: PROPOFOL 200 MG/20 ML VIAL IV ONE (08:56)
[2019-03-20] MEDS ORDERED: LIDOCAINE MPF (2%) 20 MG/1 ML VIAL 5 ML ONE (08:56)
[2019-03-20] MEDS ORDERED: BENZOCAINE 20% TOP SPRAY 0.5 ML UNIT DOSE MM NR (09:00)
[2019-03-20] MEDS ORDERED: SODIUM CHLORIDE 0.9% 500 ML 500 ML IV SCH (09:00)
[2019-03-20 09:07] LABS: Partial Thromboplastin Time 29.2 Sec. (24.2-36.6)
--- NOTE | 2019-03-20 11:01 | Short Stay Summary ---
Short Stay Documentation Date of service: 03/20/19 - History H&P: obtained from office - Allergies and Medications Current Medications: Allergies latex Allergy (Verified 03/06/16 08:01) Unknown chlorine Allergy (Uncoded 03/06/16 08:01) Unknown Home Medications Medication Instructions Recorded Confirmed Last Taken Type Allopurinol 300 mg PO DAILY 04/03/18 03/19/19 03/19/19 History 30 mg Multivitamin 1 tab PO QDAY 04/03/18 03/19/19 03/19/19 History 1 tab Lantus 36 units SUB-Q DAILY 04/05/18 03/19/19 03/19/19 History 36 units Levothyroxine [Synthroid] 75 mg PO QAM 04/05/18 03/19/19 03/19/19 History 75 mcg Polyethylene Glycol 3350 [Clearlax] 17 gm PO PRN PRN 04/05/18 03/19/19 03/18/19 History 17 gm Aspirin EC [Halfprin EC] 81 mg PO QDAY #30 tablet. 04/09/18 03/19/19 03/19/19 Rx 81 mg ALBUTEROL Inhaler (OR & NICU) 2 puff IH Q6H PRN #1 inha 12/12/18 Unknown Rx [ProAir HFA Inhaler] Furosemide [Lasix TAB] 40 mg PO DAILY #40 tablet 12/12/18 03/19/19 03/19/19 Rx 40 mg ISOSORBIDE MONOnitrate [Imdur ER] 30 mg PO QDAY #30 tablet 12/12/18 03/19/19 03/19/19 Rx 30 mg Losartan [Cozaar] 25 mg PO QPM #30 tablet 12/12/18 03/19/19 03/19/19 Rx 25 mg Metoprolol [Lopressor TAB] 50 mg PO BID #60 tablet 12/12/18 03/19/19 03/19/19 Rx 50 mg Alpha Lipoic Acid 200 mg PO DAILY 03/19/19 03/19/19 03/17/19 History 200 mg Cinnamon Bark [Cinnamon] 500 mg PO DAILY 03/19/19 03/19/19 03/19/19 History 500 mg Clopidogrel [Plavix] 75 mg PO QDAY 03/19/19 03/19/19 03/19/19 History 75 mg Cranberry Fruit [Cranberry] 1 tab PO TID 03/19/19 03/19/19 03/19/19 History 3 tab Rosuvastatin Calcium [Crestor] 10 mg PO DAILY 03/19/19 03/19/19 03/19/19 History 10 mg Rutin/Quercetin/Bioflav/Bilber 1 each PO BID 03/19/19 03/19/19 03/19/19 History [Bilberry Extract 40 mg Cap] 1 tab Active Medications Benzocaine (Hurricaine One 20% Topical [place]) 3 spray MM PREOP NR Stop: 03/20/19 11:00 Last Admin: 03/20/19 09:45 Dose: 3 spray Documented by: Sodium Chloride (Nacl 0.9% 500 Ml) 500 mls @ 50 mls/hr IV DIRECT DEEPTI Last Admin: 03/20/19 09:22 Dose: 50 mls/hr Documented by: - Physical exam General appearance: no acute distress Integumentary: no rash HEENT: Atraumatic Lungs: Clear to auscultation Breasts: deferred Heart: Regular rate, Murmur Gastrointestinal: normal Female Genitourinary: deferred Rectal Exam: deferred Extremities: no ischemia Neurological: Normal gait - Brief post op/procedure progress note Date of procedure: 03/20/19 Pre-op diagnosis: Moderate MR Post-op diagnosis: other Procedure: KEISHA Anesthesia: MAC Findings: See report Surgeon: WILLIS HOFFMAN Estimated blood loss: none Pathology: none Condition: stable - Hospital course Hospital course: uneventful - Disposition Condition at discharge: Good Disposition: [id number]-01 TO HOME OR SELFCARE Short Stay Discharge Plan Activity: advance as tolerated Weight Bearing Status: Partial Weight Bearing Diet: low fat, low cholesterol, low salt Follow up with: ANGELA LEMA MD [Primary Care Provider] - 7 Days
[2019-03-20 12:13] VITALS: BP 176/139
--- NOTE | 2019-03-20 12:21 | Post Anesthesia Evaluation ---
- Post Anesthesia Evaluation Patient Participated: Yes Airway Patent: Yes Stable Respiratory Function: Yes Nausea/Vomiting: No Temp > 96.8F: Yes Pain Manageable: Yes Adequeate Hydration: Yes Anesthesia Complications: No Block Receding Appropriately: Not Applicable Patient on Ventilator: No
== END 2019-03-20 12:30 | disposition home or self-care (01) ==
LOC: CATHLABREC 07:52 → EDSTATUS 08:00 → CATHLABREC 12:30
PROVIDERS: ATTEND Internal Medicine
DX: I34.0 Nonrheumatic mitral (valve) insufficiency (principal); I25.10 Atherosclerotic heart disease of native coronary artery without angina pectoris; G93.40 Encephalopathy, unspecified; E11.9 Type 2 diabetes mellitus without complications; I50.9 Heart failure, unspecified; I11.0 Hypertensive heart disease with heart failure; I25.2 Old myocardial infarction; J44.9 Chronic obstructive pulmonary disease, unspecified; E03.9 Hypothyroidism, unspecified; E78.00 Pure hypercholesterolemia, unspecified; Z90.49 Acquired absence of other specified parts of digestive tract; Z90.710 Acquired absence of both cervix and uterus; Z83.3 Family history of diabetes mellitus; Z91.040 Latex allergy status; Z88.8 Allergy status to other drugs, medicaments and biological substances; Z79.899 Other long term (current) drug therapy; Z79.82 Long term (current) use of aspirin; Z87.440 Personal history of urinary (tract) infections; Z98.49 Cataract extraction status, unspecified eye; Z95.0 Presence of cardiac pacemaker; Z86.73 Personal history of transient ischemic attack (TIA), and cerebral infarction without residual deficits
CPT/HCPCS: 36415; 85025; 85610; 85730; 93312; 93320; 93325; J2704; J7040